=== PATIENT | female | born 1940 | race Caucasian/White ===

== ENCOUNTER 2018-04-17 13:00 | Emergency (ER) | payer OTHER ==
[2018-04-17 13:10] VITALS: TEMP 36.6
--- NOTE | 2018-04-17 14:15 | EMERGENCY ROOM VISIT NOTE ---
History First contact with patient: 13:36 (Shayne Rudolph M.D.) First contact with patient: 13:34 (Sergei Gardner M.D.) Chief Complaint: HYPERTENSION Stated Complaint: HIGH BLOOD PRESSURE History of Present Illness The patient is a 77 year old female who presents to the Emergency Room with complaints of asymptomatic HTN. She was getting Preop clearance for a procedure to fix her cervical stenosis and her BP was found to be in the 240s systolic. Apparently in the testing area they also heard a carotid bruit. Pt doesnt check her BP at home. She sometimes does check in the pharmacy and gets values in the 150s systolic. She does have a history of HTN. Pt is on Metoprolol and Losartan at home which she states she is compliant with. Her BPs in clinic have been around 150-190s systolic. Pt states she has been very stressed about her surgery, there are also some personal issues in her life including flees and family issues that she is stressed about. She states that whenever she gets nervous in the office her blood pressure tends to shoot up as well. She states she has never been on HCTZ. Denies having a sulfa allergy. SHX: She doesn't smoke, no ETHOH, no HLD. Pt drinks caffeinated tea every day. Lives in [place]. . Source of History: patient Symptom Intensity: minimal Timing: constant Modifying Factors (Worsening): other (stress) Associated Symptoms: No LOC, No fevers, No chills, No chest pain, No SOB, No nausea, No vomiting, No back pain, No diarrhea, No fatigue (Shayne Rudolph M.D.) Review of Systems See HPI for pertinent positives and negatives. A total of ten systems were reviewed and were otherwise negative. Constitutional: No fever, No chills Eyes: No worsening of vision ENT: No hearing loss, No sore throat Respiratory: No cough, No sputum Cardiovascular: No chest pain Abdomen: No pain, No nausea, No diarrhea, No constipation Genitourinary - Female: No dysuria Neurologic: No memory loss Psychiatric: No depression symptoms Endocrine: No fatigue (Shayne Rudolph M.D.) Past Medical/Surgical History History of hypertension which she is medicated for, history of cervical stenosis. (Sergei Gardner M.D.) Social History Smoking Status: Never Smoker (Shayne Rudolph M.D.) Current/Historical Medications Scheduled Aspirin (Aspirin Chewable), 81 MG PO DAILY Cholecalciferol (Vitamin D3), 1 TAB PO QPM Clobetasol Propionate (Temovate), 1 APPLN TOP BID Coenzyme Q10 (Ubidecarenone) (Co Q-10), 1 CAP PO HS Escitalopram (Lexapro), 10 MG PO DAILY Hydrocortisone (Rectal) (Proctozone-Hc), 1 APPLN EX UD Losartan Potassium (Cozaar), 50 MG PO QPM Metoprolol Succ (Toprol Xl) (Toprol-Xl), 25 MG PO QPM Omeprazole (Prilosec), 20 MG PO QPM Scheduled PRN Docusate Sodium (Docusate Sodium), 1 CAP PO BID PRN for Constipation Fluticasone Propionate (Nasal) (Flonase Allergy Relief), 1 SPRAY NA DAILY PRN for Nasal Congestion Tramadol (Ultram), 50 MG PO Q8H PRN for Pain Physical Exam Vital Signs Date Time Temp Pulse Resp B/P (MAP) Pulse Ox O2 Delivery O2 Flow Rate FiO2 04/17/18 16:11 86 16 189/65 97 Room Air 04/17/18 15:46 99 18 175/113 98 Room Air 04/17/18 14:34 66 18 236/82 98 Room Air 04/17/18 14:22 59 04/17/18 13:30 233/90 04/17/18 13:10 36.6 60 20 242/90 98 Room Air (Sergei Gardner M.D.) Physical Exam Gen: No acute distress. HEENT: Head - normocephalic and atraumatic. Pupils are equal, round, and reactive to light. Extraocular eye muscles are intact and sclera are anicteric. Ears - bilaterally patent canals with noninjected tympanic membranes and no evidence of hemotympanum. Nose - moist nasal mucosa without discharge. Mouth - moist buccal mucosa. Oropharynx is nonerythematous and there is no tonsillar exudate or edema noted. Neck: Supple; no JVD, nuchal rigidity, cervical lymphadenopathy, There is a Right sided carotid bruit. No bruit on left. Heart: Regular rate and rhythm. There is a normal S1 and S2 with no murmurs, clicks, or gallops appreciated. Lungs: Clear to auscultation bilaterally with no wheezes, rales, or rhonchi. Abdomen: Soft, completely nontender, nondistended, with good bowel sounds. There are no palpable pulsatile masses or hepatosplenomegaly. There is no guarding, rigidity, or rebound noted. Extremities: No evidence of cyanosis, clubbing, or edema. There are easily palpable peripheral pulses. SKIN: LLE has small erythematous pinpoint lesions, non raise. No signs of excoriation. Neuro:The patient is awake and alert, oriented to day, time, and place. Muscle strength is 5/5 in all 4 extremities. The patient has equal reports analysis manager strength and equal pedal push and pull. There are no cerebellar signs. CN 2-10 intact. Reflexes 2+ bilaterlaly. No nystagmus. No photosensitivity. Kernig's sign negative. (Shayne Rudolph M.D.) Medical Decision & Procedures ER Provider Diagnostic Interpretation: CAROTID DOPPLER NECK ART CLINICAL HISTORY: 77 years-old Female presenting with h/o carotid bruit, severe HTN. TECHNIQUE: Real-time grayscale and color and spectral Doppler ultrasound imaging of the bilateral carotid arteries was performed. NASCET criteria was used in evaluating this study. COMPARISON: None. FINDINGS: RIGHT: Common carotid artery (CCA): Atherosclerosis at the carotid bulb. Evaluation of the carotid bifurcation is limited due to significant calcified plaque resulting in posterior shadowing. Peak systolic velocity (PSV) 64 cm/s. Internal carotid artery (ICA): Atherosclerosis of the proximal ICA. PSV 437 cm/s. End diastolic velocity (EDV) 39 cm/s. ICA/CCA (systolic) ratio: 6.8. External carotid artery (ECA): Atherosclerosis. PSV 142 cm/s. LEFT: Common carotid artery (CCA): Atherosclerosis at the carotid bulb. PSV 68 cm/s. Internal carotid artery (ICA): Atherosclerosis of the proximal ICA. PSV 47 cm/s. EDV 9 cm/s. ICA/CCA (systolic) ratio: 0.7. External carotid artery (ECA): Patent. PSV 86 cm/s. Bilateral antegrade flow within the vertebral arteries. Blood pressure: Brachial: Right: 223/80 mmHg, Left: 212/97 mmHg. Reference ranges: Stenosis measurements are compared to reference velocity parameters by the Society of Radiologists in Ultrasound (SRU) consensus and Sonographic NASCET index (S-NASCET). SRU Primary parameters: ICA PSV <125 cm/s = normal or less than 50% stenosis; ICA PSV 125-230 cm/s = 50-69% stenosis; ICA PSV >230 cm/s = greater than or equal to 70% stenosis. SRU Additional parameters: ICA/CCA PSV ratio <2 = normal or less than 50% stenosis; ratio 2-4 = 50-69% stenosis; ratio >4 = greater than or equal to 70% stenosis. ICA EDV <40 cm/s = normal or less than 50% stenosis; ICA EDV 40-100 cm/s = 50-69% stenosis; ICA EDV >100 cm/s = greater than or equal to 70% stenosis. S-NASCET parameters: Deceleration spectral broadening + PSV <125 cm/s = less than 50% stenosis; pansystolic spectral broadening + PSV <125 cm/s = 16-49% stenosis; pansystolic spectral broadening + PSV >125 cm/s + EDV <110 cm/s or ICA/CCA PSV ratio 2-4 = 50-69% stenosis; pansystolic spectral broadening + PSV >270 cm/s OR EDV >110 cm/s OR ICA/CCA PSV ratio >4 = 70-79% stenosis; EDV >140 cm/s = 80-99% stenosis. IMPRESSION: 1. Atherosclerosis with a hemodynamically significant stenosis in the proximal right internal carotid artery (greater than or equal to 70% stenosis). Stenosis is likely less than 80%. 2. Systemic hypertension. [~ rep ct add3]] TWO VIEW CHEST CLINICAL HISTORY: Preoperative examination. FINDINGS: PA and lateral chest radiographs are obtained. No prior studies are available for comparison at the time of dictation. The heart is top normal for projection and there is atherosclerotic calcification of the thoracic ureter. Nonspecific interstitial thickening is likely chronic. No airspace consolidation or pleural effusion is identified. There is no pneumothorax. The skeletal structures are osteopenic. The bony thorax appears intact. IMPRESSION: No active disease in the chest. (Shayne Rudolph M.D.) Laboratory Results 04/17/18 14:04 04/17/18 14:04 Test 04/17/18 14:04 04/17/18 14:20 Red Blood Count 4.63 M/uL (4.2-5.4) Mean Corpuscular Volume 89.2 fL (80-100) Mean Corpuscular Hemoglobin 29.2 pg (25-34) Mean Corpuscular Hemoglobin Concent 32.7 g/dl (32-36) RDW Standard Deviation 47.7 fL (36.4-46.3) RDW Coefficient of Variation 14.8 % (11.5-14.5) Mean Platelet Volume 10.0 fL (7.4-10.4) Anion Gap 7.0 mmol/L (3-11) Estimated GFR () 70.5 Estimated GFR (Non- 60.9 BUN/Creatinine Ratio 17.6 (10-20) Calcium Level 9.2 mg/dl (8.5-10.1) Urine Color YELLOW Urine Appearance CLEAR (CLEAR) Urine pH 7.5 (4.5-7.5) Urine Specific [place] 1.006 (1.000-1.030) Urine Protein NEG (NEG) Urine Glucose (UA) NEG (NEG) Urine Ketones NEG (NEG) Urine Occult Blood NEG (NEG) Urine Nitrite NEG (NEG) Urine Bilirubin NEG (NEG) Urine Urobilinogen NEG (NEG) Urine Leukocyte Esterase TRACE (NEG) Urine WBC (Auto) 1-5 /hpf (0-5) Urine RBC (Auto) 5-10 /hpf (0-4) Urine Hyaline Casts (Auto) 0 /lpf (0-5) Urine Epithelial Cells (Auto) 0-5 /lpf (0-5) Urine Bacteria (Auto) NEG (NEG) (Sergei Gardner M.D.) Medications Administered Medications (Trade) Dose Ordered Sig/[place] Route Start Time Stop Time Status Last Admin Dose Admin Hydralazine HCl (HydrALAZINE INJ) 10 mg NOW STAT IV. 04/17/18 15:08 04/17/18 15:10 DC 04/17/18 15:46 10 MG (Sergei Gardner M.D.) ECG Per My Interpretation Indication: other (asymptomatic HTN) Rate (beats per minute): 65 Rhythm: sinus rhythm Findings: no acute ischemic change, no ectopy Change: no significant change (Shayne Rudolph M.D.) Medical Decision The patient's care and disposition was discussed with Dr. Gardner, Attending ED Physician. This is a 77F with asymptomatic HTN. Differential diagnosis include hypertensive urgency, hypertensive emergency, benign hypertension, cardiovascular pathology, pheochromocytoma, electrolyte abnormality, renal disease, endorgan damage, as well as others were entertained. Triage Nursing notes were reviewed. ED Course included an extensive history and physical exam, labs and carotid Ultrasound. 1:45PM - Pt was seen and examined at bedside. Carotid US ordered. 2:00PM - Case discussed with Dr. Gardner, Attending ER Physician. Looked up previous EKG done at preop testing. Ordered updated. 10mg IV hydralazine ordered. 3:56PM - Results reviewed. Carotid US showed between 70% and 80% stenosis in the proximal R internal carotid artery. A question will be posed to the vascular surgery team whether this should be emergency treated or treated at all. 4:00PM - Spoke with [facility] - no emergent interventions at this time. Pt is advised to follow up at [facility] with Dr. Denson, T: [phone] - to call and make an appointment. This will be added to pt's discharge instructions. 4:15PM - Spoke to patient regarding the above results - we will increase the patient's Losartan from 50mg daily to 100mg daily and ask her to follow up with PCP for BP recheck. The pt was informed about the findings as listed above. All questions were answered. Return instructions were outlined and the patient was discharged in good condition. The patient was referred to PCP for recheck of the current condition. (Shayne Rudolph M.D.) Head Trauma GCS Score: 15 (Shayne Rudolph M.D.) Impression Primary Impression: Asymptomatic hypertension Additional Impressions: Carotid artery stenosis Carotid bruit Departure Information Dispostion Home / Self-Care Condition GOOD Referrals Renee Meeks D.O. (PCP) Patient Instructions Hypertension Control, My [facility] [employer], Stress Relief Relaxation Additional Instructions Your Lab Work did not show any abnormalities. Your Carotid Ultrasound showed 70-80% stenosis in the Right Carotid Artery. After speaking with our vascular surgeon there was no indication for emergent surgical correction of this stenosis. You should however follow up with the [facility] with Dr. Denson. Dr. Denson's Physician Automobile Contract Clerk is aware of your ultrasound result. The phone number for Dr. Denson's office is [phone] - please call and make an appointment. We also encourage you to increase your dose of Losartan. At present our records indicate you take 50mg daily of Losartan, you can increase this amount of 100mg daily. Please follow up with your PCP for further blood pressure management. Return to the ER if you experience any symptoms of hypertensive urgency such as dizziness, headaches or blurred vision. We also recommend checking your blood pressure at home and in the pharmacy. Information on blood pressure control and relaxation techniques will be printed for you. Resident Involvement: Resident Care Provided Care Provided: Adult ED (Shayne Rudolph M.D.) Problem Qualifiers
[2018-04-17 14:23] LABS: HEMATOCRIT 41.3 % (37-47); HEMOGLOBIN 13.5 g/dL (12.0-16.0); MEAN CELL VOLUME 89.2 fL (80-100); MEAN CORPUSCULAR HEMOGLOBIN 29.2 pg (25-34); MEAN CORPUSCULAR HGB CONC 32.7 g/dl (32-36); PLATELET COUNT 269 K/uL (130-400); RED CELL DISTRIBUTION WIDTH CV 14.8 % (11.5-14.5); RED CELL DISTRIBUTION WIDTH SD 47.7 fL (36.4-46.3); WHITE BLOOD COUNT 6.72 K/uL (4.8-10.8)
[2018-04-17 14:43] LABS: BLOOD UREA NITROGEN 16 mg/dl (7-18); CALCIUM 9.2 mg/dl (8.5-10.1); CARBON DIOXIDE 25 mmol/L (21-32); CREATININE 0.91 mg/dl (0.60-1.20); GLUCOSE 90 mg/dl (70-99); POTASSIUM 4.1 mmol/L (3.5-5.1); SODIUM 138 mmol/L (136-145)
[2018-04-17] MEDS ORDERED: HydrALAZINE HCL 20 MG/ML VIAL IV. STA (15:08)
--- NOTE | 2018-04-17 15:32 | DIAGNOSTIC IMAGING REPORT ---
TWO VIEW CHEST CLINICAL HISTORY: Preoperative examination. FINDINGS: PA and lateral chest radiographs are obtained. No prior studies are available for comparison at the time of dictation. The heart is top normal for projection and there is atherosclerotic calcification of the thoracic ureter. Nonspecific interstitial thickening is likely chronic. No airspace consolidation or pleural effusion is identified. There is no pneumothorax. The skeletal structures are osteopenic. The bony thorax appears intact. IMPRESSION: No active disease in the chest. Electronically signed by: Sergei Omer M.D. 04/17/2018 3:31 PM Dictated Date/Time: 04/17/2018 3:31 PM
--- NOTE | 2018-04-17 15:39 | DIAGNOSTIC IMAGING REPORT ---
CAROTID DOPPLER NECK ART CLINICAL HISTORY: 77 years-old Female presenting with h/o carotid bruit, severe HTN. TECHNIQUE: Real-time grayscale and color and spectral Doppler ultrasound imaging of the bilateral carotid arteries was performed. NASCET criteria was used in evaluating this study. COMPARISON: None. FINDINGS: RIGHT: Common carotid artery (CCA): Atherosclerosis at the carotid bulb. Evaluation of the carotid bifurcation is limited due to significant calcified plaque resulting in posterior shadowing. Peak systolic velocity (PSV) 64 cm/s. Internal carotid artery (ICA): Atherosclerosis of the proximal ICA. PSV 437 cm/s. End diastolic velocity (EDV) 39 cm/s. ICA/CCA (systolic) ratio: 6.8. External carotid artery (ECA): Atherosclerosis. PSV 142 cm/s. LEFT: Common carotid artery (CCA): Atherosclerosis at the carotid bulb. PSV 68 cm/s. Internal carotid artery (ICA): Atherosclerosis of the proximal ICA. PSV 47 cm/s. EDV 9 cm/s. ICA/CCA (systolic) ratio: 0.7. External carotid artery (ECA): Patent. PSV 86 cm/s. Bilateral antegrade flow within the vertebral arteries. Blood pressure: Brachial: Right: 223/80 mmHg, Left: 212/97 mmHg. Reference ranges: Stenosis measurements are compared to reference velocity parameters by the Society of Radiologists in Ultrasound (SRU) consensus and Sonographic NASCET index (S-NASCET). SRU Primary parameters: ICA PSV <125 cm/s = normal or less than 50% stenosis; ICA PSV 125-230 cm/s = 50-69% stenosis; ICA PSV >230 cm/s = greater than or equal to 70% stenosis. SRU Additional parameters: ICA/CCA PSV ratio <2 = normal or less than 50% stenosis; ratio 2-4 = 50-69% stenosis; ratio >4 = greater than or equal to 70% stenosis. ICA EDV <40 cm/s = normal or less than 50% stenosis; ICA EDV 40-100 cm/s = 50-69% stenosis; ICA EDV >100 cm/s = greater than or equal to 70% stenosis. S-NASCET parameters: Deceleration spectral broadening + PSV <125 cm/s = less than 50% stenosis; pansystolic spectral broadening + PSV <125 cm/s = 16-49% stenosis; pansystolic spectral broadening + PSV >125 cm/s + EDV <110 cm/s or ICA/CCA PSV ratio 2-4 = 50-69% stenosis; pansystolic spectral broadening + PSV >270 cm/s OR EDV >110 cm/s OR ICA/CCA PSV ratio >4 = 70-79% stenosis; EDV >140 cm/s = 80-99% stenosis. IMPRESSION: 1. Atherosclerosis with a hemodynamically significant stenosis in the proximal right internal carotid artery (greater than or equal to 70% stenosis). Stenosis is likely less than 80%. 2. Systemic hypertension. Electronically signed by: Tahir Polanco M.D. 04/17/2018 3:38 PM Dictated Date/Time: 04/17/2018 3:33 PM
--- NOTE | 2018-04-17 16:30 | EMERGENCY ROOM VISIT NOTE ---
ED Visit Note First contact with patient: 13:34 I did see the patient with the third year resident. Please see his note. This note was reviewed by me. I did examine the patient and have been involved in the patient's care throughout the ER stay. Patient presents from preadmission testing. She was found to have a high blood pressure. She was asymptomatic. Workup here showed a right carotid bruit with a right carotid stenosis. Outpatient follow-up has been arranged. She received IV hydralazine and her blood pressure is improved. She was felt stable for discharge with outpatient follow-up. She will increase her Losartan to 100 mg daily. Patient will follow with her doctors office and returning for any complaints or concerns.
[2018-04-17 16:44] VITALS: BP 184/76; PULSE 69; O2SAT 97
== END 2018-04-17 16:46 | disposition home or self-care (01) ==
LOC: C.EDB 13:02 → C.EDA 16:46
DX: I10 Essential (primary) hypertension (principal); I77.1 Stricture of artery; R01.1 Cardiac murmur, unspecified; Z79.82 Long term (current) use of aspirin

== ENCOUNTER → 2018-04-17 | Outpatient (CLI) | payer OTHER ==
[~2018-04-17] MED LIST: ASPCH81X PO; CHOL20007 PO; CLOB-77 TOP; COEN100C3 PO; DOCU100C31 PO; ESCI10TA17 PO; FLUT0.15; HYDRCRE28 EX; LOSA50TA6 PO; METO25TA3 PO; PRLSR20 PO; TRAM-10 PO
[2018-04-17 13:24] LABS: BASO % 0.2 %; BASO ABS # 0.01 K/uL (0-0.2); EOS % 4.3 %; EOS ABS # 0.25 K/uL (0-0.5); HEMATOCRIT 39.6 % (37-47); HEMOGLOBIN 12.9 g/dL (12.0-16.0); IG# 0.02 K/uL (0.00-0.02); LYMPH % 36.3 %; LYMPH ABS # 2.11 K/uL (1.2-3.4); MEAN CELL VOLUME 88.8 fL (80-100); MEAN CORPUSCULAR HEMOGLOBIN 28.9 pg (25-34); MEAN CORPUSCULAR HGB CONC 32.6 g/dl (32-36); MONO % 8.1 %; MONO ABS # 0.47 K/uL (0.11-0.59); NEUT % 50.8 %; NEUT ABS # 2.96 K/uL (1.4-6.5); PLATELET COUNT 255 K/uL (130-400); RED CELL DISTRIBUTION WIDTH CV 14.7 % (11.5-14.5); RED CELL DISTRIBUTION WIDTH SD 47.5 fL (36.4-46.3); WHITE BLOOD COUNT 5.82 K/uL (4.8-10.8)
[2018-04-17 13:44] LABS: PTT PATIENT 27.8 SECONDS (21.0-31.0)
[2018-04-17 14:00] LABS: BLOOD UREA NITROGEN 16 mg/dl (7-18); CREATININE 0.89 mg/dl (0.60-1.20); GLUCOSE 99 mg/dl (70-99)
[2018-04-17 14:01] LABS: CALCIUM 9.1 mg/dl (8.5-10.1); CARBON DIOXIDE 26 mmol/L (21-32); POTASSIUM 4.2 mmol/L (3.5-5.1); SODIUM 138 mmol/L (136-145)
== END | disposition home or self-care (01) ==
LOC: C.CPL 11:39
PROVIDERS: ATTEND Orthopaedic Surgery Orthopaedic Surgery of the Spine
DX: Z01.812 Encounter for preprocedural laboratory examination (principal); Z01.811 Encounter for preprocedural respiratory examination; Z01.810 Encounter for preprocedural cardiovascular examination

== ENCOUNTER 2024-08-05 15:00 | Inpatient (IN) ==
--- NOTE | 2024-08-05 16:06 | Emergency Department Note ---
Impression & Plan Fatigue, HOFFMAN (dyspnea on exertion), Anemia ED Provider Note ED Provider Note NAME: ZOFIA GONZALEZ AGE:83 SEX: Female : 1940 ARRIVES VIA: private vehicle INFORMANT: Patient ED PROVIDER(s): Cristin Almanza DO CHIEF COMPLAINT: referred by PCP, abn outpatient labs, fatigue, HOFFMAN HPI: This is an 83-year-old female who presents emergency department after being directed here by her PCP after abnormal outpatient labs revealed significant anemia and low iron. Patient states over the last several weeks she has noticed increased fatigue particular with any exertion. She states she also has felt more short of breath with any exertion. She denies any black or bloody stools, noting that she does struggle with constipation and does occasionally have a small amount of bleeding on toilet tissue from hemorrhoids. She denies any vomiting, hematemesis, frequent nosebleeds, hemoptysis, abdominal pain, fevers or chills. She denies any prior history of anemia although states many years ago she did use to take iron supplements for low iron but has not in several years. No other recent change in diet or medications. She denies any use of antiplatelet or anticoagulation medications. She has had a prior screening colonoscopy which she reports was "good". Uncertain if she ever had an EGD. PAST MEDICAL HISTORY:See Below PAST SURGICAL HISTORY:See Below FAMILY HISTORY:See Below SOCIAL HISTORY:See Below HOME MEDICATIONS:See Below ALLERGIES:See Below VITALS:See Below PHYSICAL EXAMINATION: GENERAL: alert, well appearing, well nourished, no distress, non-toxic EYE EXAM: normal conjunctiva, PERRL and EOM's grossly intact OROPHARYNX: no exudate, no erythema, lips, buccal mucosa, and tongue normal and mucous membranes are moist NECK: supple, no nuchal rigidity, no adenopathy, non-tender LUNGS: Clear to auscultation. Normal chest wall mechanics, no w/r/r HEART: no murmurs, S1 normal and S2 normal ABDOMEN: abdomen soft, non-tender, normo-active bowel sounds, no masses, no rebound or guarding. BACK: Back is symmetrical on inspection and there is no deformity, no midline tenderness, no CVA tenderness. SKIN: no rashes, petechiae, orbruising UPPER EXTREMITIES: upper extremities are grossly normal. FROM, nml pulses b/l. LOWER EXTREMITIES: No pitting edema. FROM, nml pulses b/l. NEURO EXAM: Normal sensorium, cranial nerves II-XII grossly intact, normal speech, no facial droop,nogross weakness of arms, no gross weakness of legs. Gross sensation intact. No ataxia. Vital Signs: reviewed and remarkable Differential Diagnosis: anemia, GI bleed, AMANDA, ACS, colitis, CKD, medication adr, PUD, as well as others were considered MEDICAL DECISION MAKING: THis is an 83 yo female who presents to the ER with concern for abnormal outpatient labs and was referred by her PCP to the ER. She c/o a month of worsening fatigue and dyspnea with exertion. Labs drawn and sent, IV established, EKG and CXR performed and interpreted at bedside, and patient placed on telemetry. Prior labs from last year show a normal H/H at that time. She denies blood loss from any source including any GI bleed. She was noted have marked anemia. CXR reassuring, no acute EKG changes. She was sent for CT a/p additionally. No definite abnormality noted. We discussed further inpatient evaluation and likely need for blood transfusion given worsening symptoms and likely ongoing loss. Case discussed with the hospitalist team for additional evaluation. Blood consent signed at bedside and transfusion started while still in the ER. I suspect more likely occult GI bleed given patient described "dark brown" stools but not truly melanotic. Given last labs from >1 year ago, and patient relatively asymptomatic until the last month it is unclear when this may have started. VS stable while in the ER. Consultation(s): 1904: Discussed with Isabella Arboleda hospitalist team, for additional evaluation and management. Agrees with transfusion of 1 unit of packed RBCs due to symptomatic anemia. 1922: Blood consent form signed at bedside. ER Treatment Provided: See below Diagnostics Interpreted By Me: -ECG: nsr at 71, nml axis, nml intervals, no acute ST/T wave changes -Cardiac Monitoring: An order was placed for continuous cardiac monitoring. The monitor shows a rate of 70 with normal sinus rhythm. -Laboratory studies: As stated above and show below. -Imaging studies: X-ray Chest: A single view study of the chest was reviewed and was negative for cardiomegaly, focal infiltrate, effusion, pulmonary edema, or wide mediastinum. Triage Nursing Note Reviewed Prior/Outside Records Reviewed Critical Care: Critical care of 36 min performed to assess and manage high likelihood of life-threatening symptomatic anemia, involving labs and imaging performed with assessment to evaluate anemia diagnosis with frequent reassessment. This time includes bedside time, treatment discussions with patient/family/consultants, documentation time and excludes procedure time. Past Med/Surg History Problem List (Updated 08/06/24 @ 13:21 by LAINEY Suarez) CAD (coronary artery disease) CKD (chronic kidney disease) stage 4, GFR 15-29 ml/min Hypothyroidism CKD (chronic kidney disease), stage III Dark stools Symptomatic anemia Anemia (Acute) HOFFMAN (dyspnea on exertion) (Acute) Fatigue (Acute) Cervical stenosis of spinal canal Encounter for pre-operative examination Osteoarthritis GERD (gastroesophageal reflux disease) Depression Hypertension (Acute) Irregular heart rate UNKNOWN TYPE PER PT, FREQUENT PVCS NOTED ON 2015 ECHO Medical History Anxiety Cervical radiculopathy SOB (shortness of breath) on exertion Surgical History History of tonsillectomy H/O hemicolectomy 2/2 bowel obstruction H/O hysterectomy with oophorectomy one ovary remains H/O tubal ligation H/O colonoscopy History of carpal tunnel release duplicate Social History Smoking Status: Never smoker Second Hand Exposure: No; Do You Dip or Chew Tobacco: No; Hx Alcohol Use: Yes Alcohol type: hard liquor Hx Substance Use: No Preferred Language: Taiwanese Communication Ability: Effective Spine Supervisor Required: No Beliefs That Will Affect Care: None Current Living Situation: Spouse Other Information That Helps Us Care for You: No Feels Safe at Home: Yes Safety Concerns: Feels Safe At This Time Assistive Devices: Glasses Allergies Allergies Allergy/AdvReac Type Severity Reaction Status Date / Time No Known Allergies Allergy Verified 08/01/18 06:35 Home Meds Home Medications Medication Instructions Recorded Confirmed cholecalciferol (vitamin D3) 50 2,000 unit PO QPM 04/16/18 08/05/24 mcg (2,000 unit) capsule (Vitamin D3) docusate sodium 100 mg tablet 100 mg PO BID Constipation 04/16/18 08/05/24 escitalopram oxalate 10 mg tablet 10 mg PO QAM 04/16/18 08/05/24 fluticasone propionate 50 1 spray intranasal DAILY PRN 04/16/18 08/05/24 mcg/actuation nasal Congestion spray,suspension (Flonase Allergy Relief) losartan 100 mg tablet 100 mg PO DAILY 07/23/18 08/05/24 vitamin E 670 mg (1,000 unit) 1,000 unit PO DAILY 07/23/18 08/05/24 capsule amlodipine 2.5 mg tablet 2.5 mg PO DAILY 08/05/24 08/05/24 aspirin 81 mg tablet,delayed 81 mg PO DAILY 08/05/24 08/05/24 release atorvastatin 40 mg tablet 40 mg PO QPM 08/05/24 08/05/24 coenzyme Q10 100 mg capsule (Co 100 mg PO QAM 08/05/24 08/05/24 Q-10) furosemide 20 mg tablet 20 mg PO DAILY 08/05/24 08/05/24 hydralazine 25 mg tablet 25 mg PO TID 08/05/24 08/05/24 levothyroxine 25 mcg tablet 25 mcg PO DAILYBB 08/05/24 08/05/24 metoprolol succinate 25 mg 25 mg PO DAILY 08/05/24 08/05/24 tablet,extended release 24 hr omeprazole 20 mg capsule,delayed 20 mg PO AMPM 08/05/24 08/05/24 release Results & Data (ED) Vital Signs Vital Signs - 24 hr 08/05/24 15:06 08/05/24 16:04 08/05/24 16:04 Temperature 36.7 C Temperature Source Temporal Artery Scan Pulse Rate 75 70 Pulse Rate [Apical] Respiratory Rate 17 Blood Pressure 189/70 H 173/71 H Blood Pressure [Left Arm] Blood Pressure Mean 109 126 Blood Pressure Mean [Left Arm] Blood Pressure Position [Left Arm] Pulse Oximetry 98 Oxygen Delivery Method Room Air Sepsis Recent Fever Within 48 Hours No Sepsis New/Unexplained Change in Mental Status N/A Sepsis Action Taken by Nursing No Action Required 08/05/24 16:05 08/05/24 16:20 08/05/24 16:30 Temperature Temperature Source Pulse Rate 73 74 Pulse Rate [Apical] Respiratory Rate 16 15 Blood Pressure 195/64 H Blood Pressure [Left Arm] Blood Pressure Mean 83 Blood Pressure Mean [Left Arm] Blood Pressure Position [Left Arm] Pulse Oximetry Oxygen Delivery Method Sepsis Recent Fever Within 48 Hours Sepsis New/Unexplained Change in Mental Status Sepsis Action Taken by Nursing 08/05/24 16:41 08/05/24 16:44 08/05/24 17:00 Temperature Temperature Source Pulse Rate 71 72 Pulse Rate [Apical] Respiratory Rate 20 19 Blood Pressure 160/71 H Blood Pressure [Left Arm] Blood Pressure Mean 108 Blood Pressure Mean [Left Arm] Blood Pressure Position [Left Arm] Pulse Oximetry Oxygen Delivery Method Sepsis Recent Fever Within 48 Hours Sepsis New/Unexplained Change in Mental Status Sepsis Action Taken by Nursing 08/05/24 17:59 08/05/24 18:05 08/05/24 19:00 Temperature Temperature Source Pulse Rate 73 73 Pulse Rate [Apical] 73 Respiratory Rate 14 16 19 Blood Pressure Blood Pressure [Left Arm] 198/107 H Blood Pressure Mean Blood Pressure Mean [Left Arm] 137 Blood Pressure Position [Left Arm] Semi-fowlers Pulse Oximetry 98 Oxygen Delivery Method Room Air Sepsis Recent Fever Within 48 Hours Sepsis New/Unexplained Change in Mental Status Sepsis Action Taken by Nursing Laboratory Data 08/06/24 08:27 08/06/24 08:27 Lab Results 08/05/24 Range/Units 15:54 WBC 6.22 (4.8-10.8) K/ul RBC 3.41 L (4.20-5.40) M/uL Hgb 7.1 L (12.0-16.0) g/dl Hct 23.4 L (37.0-47.0) % MCV 68.6 L (80.0-100.0) fL MCH 20.8 L (25.0-34.0) pg MCHC 30.3 L (32.0-36.0) g/dL RDW Std Deviation 41.1 (36.4-46.3) fL RDW Coeff of Orlin 16.7 H (11.5-14.5) % Plt Count 478 H (130-400) K/uL MPV 8.9 L (9.4-12.4) fL Immature Gran % (Auto) 0.8 % Neut % (Auto) 56.6 % Lymph % (Auto) 24.4 % [place] % (Auto) 14.1 % Eos % (Auto) 3.5 % Baso % (Auto) 0.6 % Neut # (Auto) 3.51 (1.40-6.50) K/uL Lymph # (Auto) 1.52 (1.20-3.40) K/uL [place] # (Auto) 0.88 H (0.11-0.59) K/uL Eos # (Auto) 0.22 (0.00-0.50) K/uL Baso # (Auto) 0.04 (0.00-0.20) K/uL Immature Gran # (Auto) 0.05 (0.01-0.20) K/uL Polychromasia 1+ Poikilocytosis Present Microcytosis Present PT 10.7 (9.0-12.0) Seconds INR 1.0 (0.9-1.1) Sodium 134 L (136-145) mmol/L Potassium 3.9 (3.5-5.1) mmol/L Chloride 101 (98-107) mmol/L Carbon Dioxide 25 (21-32) mmol/L Anion Gap 8 (3-11) BUN 33 H (6-23) mg/dl Creatinine 1.67 H (0.6-1.2) mg/dl Est Cr Clr Drug Dosing 18.8 ml/min eGFR 30.21 BUN/Creatinine Ratio 19.8 (10-20) Glucose 91 (70-99(Fasting)) mg/dl Calcium 9.3 (8.6-10.3) mg/dl Magnesium 2.0 (1.7-2.4) mg/dl Total Bilirubin 0.4 (0.2-1.0) mg/dl AST 15 (13-39) U/L ALT 12 (7-52) U/L Alkaline Phosphatase 58 (34-104) U/L Troponin I High Sens 8.0 (0-14) pg/ml B-Natriuretic Peptide 222 H (0-100) pg/ml Total Protein 6.4 (6.0-8.3) gm/dl Albumin 3.9 (3.4-5.0) gm/dl Globulin 2.5 (2.5-4.0) gm/dl Albumin/Globulin Ratio 1.6 (0.9-2) Lipase 39 (11-82) U/L TSH 1.670 (0.300-4.500) uIu/ml Blood Type O Positive Antibody Screen NEGATIVE Crossmatch See Detail Administered Medications Amlodipine Besylate (Amlodipine Besylate 5 Mg Tab) 2.5 mg PO DAILY NARCISA Stop: 09/05/24 08:59 Last Admin: 08/06/24 08:17 Dose: 2.5 mg Documented By: DENNIS Atorvastatin Calcium (Atorvastatin 40 Mg Tab) 40 mg PO QPM NARCISA Stop: 09/04/24 21:09 Last Admin: 08/05/24 21:59 Dose: Not Given Documented By: YUNG Carvedilol (Carvedilol 3.125 Mg Tab) 3.125 mg PO BIDM NARCISA Stop: 09/05/24 05:04 Last Admin: 08/06/24 05:46 Dose: 3.125 mg Documented By: YUNG Escitalopram Oxalate (Escitalopram Oxalate 10 Mg Tab) 10 mg PO QAM NARCISA Stop: 09/05/24 08:59 Last Admin: 08/06/24 08:17 Dose: 10 mg Documented By: DENNIS Furosemide (Furosemide 20 Mg Tab) 20 mg PO DAILY NARCISA Stop: 09/05/24 08:59 Last Admin: 08/06/24 08:17 Dose: 20 mg Documented By: DENNIS Hydralazine HCl (Hydralazine Hcl 25 Mg Tab) 25 mg PO TID NARCISA Stop: 09/04/24 22:24 Last Admin: 08/06/24 13:25 Dose: 25 mg Documented By: Admin: 08/06/24 08:17 Dose: 25 mg Documented By: Admin: 08/05/24 23:13 Dose: 25 mg Documented By: YUNG Pantoprazole Sodium 40 mg/ (Dextrose) 100 mls @ 20 mls/hr IV Q5H NARCISA Stop: 09/04/24 22:29 Last Admin: 08/06/24 12:27 Dose: 8 mg/hr, 20 mls/hr Documented By: Infusion: 08/06/24 12:27 Dose: Infused Documented By: Admin: 08/06/24 07:46 Dose: 8 mg/hr, 20 mls/hr Documented By: Infusion: 08/06/24 07:46 Dose: Infused Documented By: Admin: 08/06/24 03:05 Dose: 8 mg/hr, 20 mls/hr Documented By: Infusion: 08/06/24 03:04 Dose: Infused Documented By: Admin: 08/05/24 22:13 Dose: 8 mg/hr, 20 mls/hr Documented By: YUNG Levothyroxine Sodium (Levothyroxine Sodium 25 Mcg Tablet) 25 mcg PO DAILYBB NARCISA Stop: 09/05/24 06:29 Last Admin: 08/06/24 05:46 Dose: 25 mcg Documented By: YUNG Losartan Potassium (Losartan Potassium 50 Mg Tab) 100 mg PO PM NARCISA Stop: 09/04/24 22:29 Last Admin: 08/05/24 23:14 Dose: 100 mg Documented By: YUNG Discontinued Medications Hydralazine HCl (Hydralazine Hcl 25 Mg Tab) 25 mg PO NOW STA Stop: 08/05/24 19:54 Last Admin: 08/05/24 20:07 Dose: 25 mg Documented By: ANGELY Pantoprazole Sodium (Protonix) 40 mg in 10 mls @ 5 mls/min IV NOW ONE Stop: 08/05/24 18:45 Last Admin: 08/05/24 19:18 Dose: 5 mls/min Documented By: CONCHA Pantoprazole Sodium 80 mg/ (Dextrose) 120 mls @ 480 mls/hr IV NOW STA Stop: 08/05/24 21:28 Last Infusion: 08/05/24 22:13 Dose: Infused Documented By: Admin: 08/05/24 21:58 Dose: 480 mls/hr Documented By: YUNG Iron Sucrose 300 mg/ Sodium (Chloride) 265 mls @ 176.667 mls/hr IV ONE ONE Stop: 08/05/24 23:59 Last Infusion: 08/05/24 23:28 Dose: Infused Documented By: Admin: 08/05/24 21:58 Dose: 176.7 mls/hr Documented By: YUNG Ioversol (Optiray 320 100ml) 94 ml IV ONCE ONE Stop: 08/05/24 17:44 Last Admin: 08/05/24 17:44 Dose: 94 ml Documented By: MARIO Imaging Data Radiologist's Impression: Chest X-Ray 08/05/24 15:49 EXAM: Radiograph of the Chest 1 View INDICATION: Shortness of breath. TECHNIQUE: Frontal view of the chest. COMPARISON: 05/12/2023 FINDINGS: Lungs and pleural spaces: Stable mild chronic interstitial markings without consolidation or pulmonary edema. No pleural effusion or pneumothorax. Heart: Shape and configuration within normal limits allowing for technique. Mediastinum: Normal contour. Bones/joints: No fracture, erosion or dislocation. Soft tissues: No abnormality noted. No radiopaque foreign body noted. Upper abdomen: No abnormality noted. IMPRESSION: No acute cardiopulmonary disease. ACT 112: Negative or not required by law. Electronically signed by Gwen Kam 08-05-2024 4:18 PM Abdomen/Pelvis CT 08/05/24 15:56 EXAM: CT Abdomen and Pelvis With Intravenous Contrast INDICATION: Shortness of breath and leg cramps. Anemia. TECHNIQUE: Axial computed tomography images of the abdomen and pelvis with intravenous contrast. Sagittal and coronal reformatted images were created and reviewed. This CT exam was performed using one or more of the following dose reduction techniques: automated exposure control, adjustment of the mA and/or kV according to patient size, and/or use of iterative reconstruction technique. CONTRAST: 94ml of Optiray 320 was administered intravenously. COMPARISON: No relevant prior studies available. FINDINGS: Limitations: None. Lung bases: No abnormality noted. Pleural space: No visualized pleural effusion or pneumothorax. Heart: Cardiomegaly. No basilar pericardial effusion. Mediastinum: No abnormality noted. ABDOMEN: Liver: No abnormality noted. Gallbladder and bile ducts: No calcified stones or surrounding fluid. Pancreas: Homogeneous enhancement. No mass, inflammation or ductal dilation. Spleen: No significant abnormality noted. Adrenals: No significant abnormality noted. Kidneys and ureters: The right kidney is small and the nephrogram delayed relative to the left. No hydronephrosis. No stones identified. No perinephric fluid or inflammation. No urinary gas. Stomach and bowel: Suboptimally assessed collapsed stomach. Mild pyloric thickening difficult to exclude. No inflammatory process. Colonic diverticulosis without diverticulitis. No obstruction. PELVIS: Appendix: No findings to suggest acute appendicitis. Bladder: Incompletely distended urinary bladder. No gas or stone. Reproductive: Hysterectomy. ABDOMEN and PELVIS: Intraperitoneal space: No free air. No significant fluid collection. Bones/joints: Lumbosacral degenerative disc disease. No acute osseous abnormality. Soft tissues: No significant abnormality noted. Vasculature: Atherosclerotic calcification of the aorta and branches. No aneurysm. Atherosclerotic calcification of the aorta. 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 No hemorrhage. There is moderate calcific plaque causing some level of stenosis at the origin of the right renal artery, celiac trunk and SMA. Incidental retroaortic left renal vein. Lymph nodes: No pathologically enlarged lymph nodes. IMPRESSION: 1. There may be pyloric thickening. This is suboptimally assessed due to collapse of the stomach. No focal inflammatory process, visible ulceration or perforation. 2. Atrophic right kidney which does enhance but less than the left kidney. Consider renal artery stenosis. ACT 112: Negative or not required by law. Electronically signed by Gwen Kam 08-05-2024 6:34 PM Discharge Plan Visit Data Chief Complaint: Abnormal Labs/Diagnostic Testing Stated Complaint: ABN TEST, IRON WAY DOWN ED Provider: Cristin Almanza Discharge Problem: Fatigue, HOFFMAN (dyspnea on exertion), Anemia Patient Disposition: Admitted As Inpatient Discharge Instructions Interventions: ED Discharge Assessment Last Done: 08/05/24 20:29
[2024-08-05 16:13] LABS: Basophils # (auto) 0.04 K/uL (0.00-0.20); Basophils % (auto) 0.6 %; Eosinophils # (auto) 0.22 K/uL (0.00-0.50); Eosinophils % (auto) 3.5 %; Hematocrit (blood only) 23.4 % (37.0-47.0); Hemoglobin 7.1 g/dl (12.0-16.0); Immature Granulocytes # (auto) 0.05 K/uL (0.01-0.20); Immature Granulocytes % (auto) 0.8 %; Lymphocytes # (auto) 1.52 K/uL (1.20-3.40); Lymphocytes % (auto) 24.4 %; Mean Corpuscular Hemoglobin 20.8 pg (25.0-34.0); Mean Corpuscular Hgb Conc 30.3 g/dL (32.0-36.0); Mean Corpuscular Volume 68.6 fL (80.0-100.0); Monocytes # (auto) 0.88 K/uL (0.11-0.59); Monocytes % (auto) 14.1 %; Neutrophils # (auto) 3.51 K/uL (1.40-6.50); Neutrophils % (auto) 56.6 %; RDW Coefficient of Variation 16.7 % (11.5-14.5); RDW Standard Deviation 41.1 fL (36.4-46.3); Red Blood Count 3.41 M/uL (4.20-5.40); White Blood Count 6.22 K/ul (4.8-10.8)
--- NOTE | 2024-08-05 16:19 | XRay Report ---
EXAM: Radiograph of the Chest 1 View INDICATION: Shortness of breath. TECHNIQUE: Frontal view of the chest. COMPARISON: 05/12/2023 FINDINGS: Lungs and pleural spaces: Stable mild chronic interstitial markings without consolidation or pulmonary edema. No pleural effusion or pneumothorax. Heart: Shape and configuration within normal limits allowing for technique. Mediastinum: Normal contour. Bones/joints: No fracture, erosion or dislocation. Soft tissues: No abnormality noted. No radiopaque foreign body noted. Upper abdomen: No abnormality noted. IMPRESSION: No acute cardiopulmonary disease. ACT 112: Negative or not required by law. Electronically signed by Gwen Kam 08-05-2024 4:18 PM
[2024-08-05 16:35] LABS: Albumin Globulin Ratio 1.6 (0.9-2); Albumin Level 3.9 gm/dl (3.4-5.0); BUN Creatinine Ratio 19.8 (10-20); Bilirubin,Total 0.4 mg/dl (0.2-1.0); Calcium 9.3 mg/dl (8.6-10.3); Creatinine Clr Calc Pharmacy 18.8 ml/min; Globulin 2.5 gm/dl (2.5-4.0); Potassium 3.9 mmol/L (3.5-5.1); Total Protein 6.4 gm/dl (6.0-8.3)
[2024-08-05 16:36] LABS: Mean Platelet Volume 8.9 fL (9.4-12.4); Microcytosis Present; Platelet Count 478 K/uL (130-400); Poikilocytosis Present; Polychromasia 1+
[2024-08-05 16:37] LABS: Prothrombin Time 10.7 Seconds (9.0-12.0)
[2024-08-05 16:50] LABS: Thyroid Stimulating Hormone 1.67 uIu/ml (0.300-4.500)
[2024-08-05] MEDS: OPTIRAY 320 100ml IV ONE (17:44)
--- NOTE | 2024-08-05 18:39 | CT Scan Report ---
EXAM: CT Abdomen and Pelvis With Intravenous Contrast INDICATION: Shortness of breath and leg cramps. Anemia. TECHNIQUE: Axial computed tomography images of the abdomen and pelvis with intravenous contrast. Sagittal and coronal reformatted images were created and reviewed. This CT exam was performed using one or more of the following dose reduction techniques: automated exposure control, adjustment of the mA and/or kV according to patient size, and/or use of iterative reconstruction technique. CONTRAST: 94ml of Optiray 320 was administered intravenously. COMPARISON: No relevant prior studies available. FINDINGS: Limitations: None. Lung bases: No abnormality noted. Pleural space: No visualized pleural effusion or pneumothorax. Heart: Cardiomegaly. No basilar pericardial effusion. Mediastinum: No abnormality noted. ABDOMEN: Liver: No abnormality noted. Gallbladder and bile ducts: No calcified stones or surrounding fluid. Pancreas: Homogeneous enhancement. No mass, inflammation or ductal dilation. Spleen: No significant abnormality noted. Adrenals: No significant abnormality noted. Kidneys and ureters: The right kidney is small and the nephrogram delayed relative to the left. No hydronephrosis. No stones identified. No perinephric fluid or inflammation. No urinary gas. Stomach and bowel: Suboptimally assessed collapsed stomach. Mild pyloric thickening difficult to exclude. No inflammatory process. Colonic diverticulosis without diverticulitis. No obstruction. PELVIS: Appendix: No findings to suggest acute appendicitis. Bladder: Incompletely distended urinary bladder. No gas or stone. Reproductive: Hysterectomy. ABDOMEN and PELVIS: Intraperitoneal space: No free air. No significant fluid collection. Bones/joints: Lumbosacral degenerative disc disease. No acute osseous abnormality. Soft tissues: No significant abnormality noted. Vasculature: Atherosclerotic calcification of the aorta and branches. No aneurysm. Atherosclerotic calcification of the aorta. 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 No hemorrhage. There is moderate calcific plaque causing some level of stenosis at the origin of the right renal artery, celiac trunk and SMA. Incidental retroaortic left renal vein. Lymph nodes: No pathologically enlarged lymph nodes. IMPRESSION: 1. There may be pyloric thickening. This is suboptimally assessed due to collapse of the stomach. No focal inflammatory process, visible ulceration or perforation. 2. Atrophic right kidney which does enhance but less than the left kidney. Consider renal artery stenosis. ACT 112: Negative or not required by law. Electronically signed by Gwen Kam 08-05-2024 6:34 PM
[2024-08-05] MEDS ORDERED: SODIUM CHLORIDE 0.9% 100 ML IV PRN (19:03)
[2024-08-05] MEDS ORDERED: SODIUM CHLORIDE 0.9% 50 ML IV PRN (19:03)
--- NOTE | 2024-08-05 19:08 | History & Physical Report ---
Date of Service August 05, 2024 Assessment & Plan (1) Symptomatic anemia: (2) Dark stools: Plan: Patient is 83-year-old female with PMH HTN, dyslipidemia, CKD III, CAD, carotid stenosis, depression, hypothyroidism presented to ER for progressive fatigue, SOB and newly found anemia on outpatient labs. 08/04/24 Outpatient labs: Hgb: 7.2 (Prior baseline in 13's in 2022). Iron: 20, TIBC: 747, transferrin: 4, ferritin: 21 Today in ER hypertensive, otherwise vitals stable H/H: 7.09/17 In ER given Protonix 40mg IV Will continue IV Protonix In ER Type and Cross and 1 unit PRBC transfusion ordered. Repeat H&H after transfusion FOBT pending B12, Folate labs pending IV iron infusion Hold home aspirin NPO midnight GI consult CBC, BMP in am (3) Hypertension: Plan: Hypertensive in ER. Reports missed afternoon dose of hydralazine Dose hydralazine now Continue home hydralazine, losartan, metoprolol succinate, furosemide Continue amlodipine for now but may need to consider discontinuing secondary to BLE edema (4) CKD (chronic kidney disease), stage III: Plan: Today Cr: 1.67. Is at new baseline. Cr: 1.9 on 06/01/24, 1.4 on 09/06/23. History renal ultrasound on 12/19/2023: Atrophic right kidney without mention of hydronephrosis or mass Last seen by nephrology on 05/15/2024 secondary to gradual worsening renal functions. 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 At that time her hydralazine was increased to 25 mg 3 times daily Monitor renal functions (5) GERD (gastroesophageal reflux disease): Plan: Hold home oral PPI and switched to IV PPI (6) Hypothyroidism: Plan: Continue home levothyroxine DVT Prophylaxis SCDs Admit telemetry Full code as per discussion with pt Follows with Dr Renee Meeks for routine care Pt was seen and care coordinated with Dr Fuentes. See addendum I spent a total of 65 minutes reviewing notes, outpatient records, labs, medication, coordinating, documenting and providing care for this patient excluding time spent in the performance of separately billed services. History of Present Illness Chief Complaint: Abnormal labs - anemia Primary Care Provider: Renee Meeks, Patient is 83-year-old female with PMH HTN, dyslipidemia, CKD III, CAD, carotid stenosis, depression, hypothyroidism presented to ER for progressive fatigue and newly found anemia on outpatient labs. Progressive generalized weakness and fatigue over past couple of months. Has had urge to eat ice for past 2 weeks. Feeling SOB with exertion for past month. Having cramps to legs and hands. States decreased taste to food and decreased appetite. Reports chronic heartburn. Having some constipation and used laxative at home with relief. Stools described as very dark. Denies any bright red blood from rectum. Reports history hemorrhoids and will have bulging but denies any recent bleeding hemorrhoids or hemorrhoidal pain. Takes aspirin 81mg daily. Reports had colonoscopy >10 years ago. Reports history partial bowel resection in but unaware of details. Has urinary frequency. Denies dysuria or hematuria. Reports bilateral leg swelling that is chronic and feels from her amlodipine. Denies fever/chills, diaphoresis, N/V, COURTNEY, syncope, vision changes, neck pain, CP, orthopnea, palpitations, cough, sore throat, rhinorrhea, abdominal pain, paresthesias, extremity edema, rashes. Allergies Allergy/AdvReac Type Severity Reaction Status Date / Time No Known Allergies Allergy Verified 08/01/18 06:35 Home Medications Medication Instructions Recorded Confirmed Type cholecalciferol (vitamin D3) 50 2,000 unit PO QPM 04/16/18 08/05/24 History mcg (2,000 unit) capsule (Vitamin D3) docusate sodium 100 mg tablet 100 mg PO BID Constipation 04/16/18 08/05/24 History escitalopram oxalate 10 mg tablet 10 mg PO QAM 04/16/18 08/05/24 History fluticasone propionate 50 1 spray intranasal DAILY PRN 04/16/18 08/05/24 History mcg/actuation nasal Congestion spray,suspension (Flonase Allergy Relief) losartan 100 mg tablet 100 mg PO DAILY 07/23/18 08/05/24 History vitamin E 670 mg (1,000 unit) 1,000 unit PO DAILY 07/23/18 08/05/24 History capsule amlodipine 2.5 mg tablet 2.5 mg PO DAILY 08/05/24 08/05/24 History aspirin 81 mg tablet,delayed 81 mg PO DAILY 08/05/24 08/05/24 History release atorvastatin 40 mg tablet 40 mg PO QPM 08/05/24 08/05/24 History coenzyme Q10 100 mg capsule (Co 100 mg PO QAM 08/05/24 08/05/24 History Q-10) furosemide 20 mg tablet 20 mg PO DAILY 08/05/24 08/05/24 History hydralazine 25 mg tablet 25 mg PO TID 08/05/24 08/05/24 History levothyroxine 25 mcg tablet 25 mcg PO DAILYBB 08/05/24 08/05/24 History metoprolol succinate 25 mg 25 mg PO DAILY 08/05/24 08/05/24 History tablet,extended release 24 hr omeprazole 20 mg capsule,delayed 20 mg PO AMPM 08/05/24 08/05/24 History release Past Med/Surg History Problem List (Updated 08/06/24 @ 11:30 by Tyree Coughlin MD) CKD (chronic kidney disease) stage 4, GFR 15-29 ml/min Hypothyroidism CKD (chronic kidney disease), stage III Dark stools Symptomatic anemia Anemia (Acute) HOFFMAN (dyspnea on exertion) (Acute) Fatigue (Acute) Cervical stenosis of spinal canal Encounter for pre-operative examination Osteoarthritis GERD (gastroesophageal reflux disease) Depression Hypertension (Acute) Irregular heart rate UNKNOWN TYPE PER PT, FREQUENT PVCS NOTED ON 2015 ECHO Medical History Anxiety Cervical radiculopathy SOB (shortness of breath) on exertion Surgical History History of tonsillectomy H/O hemicolectomy 2/2 bowel obstruction H/O hysterectomy with oophorectomy one ovary remains H/O tubal ligation H/O colonoscopy History of carpal tunnel release duplicate Social History Smoking Status: Never smoker Second Hand Exposure: No; Do You Dip or Chew Tobacco: No; Hx Alcohol Use: Yes Alcohol type: hard liquor Hx Substance Use: No Preferred Language: Belarusian Communication Ability: Effective Sled Maker Required: No Beliefs That Will Affect Care: None Current Living Situation: Spouse Other Information That Helps Us Care for You: No Feels Safe at Home: Yes Safety Concerns: Feels Safe At This Time Assistive Devices: Glasses Review of Systems Review of Systems: All systems reviewed & are unremarkable except as noted in HPI & below Physical Exam Physical Exam: PE per Dr Fuentes Results & Data Results & Data Vital Signs (Past 12 Hours) Vital Signs Temp Pulse Resp BP Pulse Ox O2 Del Method 08/05/24 18:05 73 16 08/05/24 17:59 73 14 08/05/24 17:00 160/71 H 08/05/24 16:44 72 19 08/05/24 16:41 71 20 08/05/24 16:30 195/64 H 08/05/24 16:20 74 15 08/05/24 16:05 73 16 08/05/24 16:04 173/71 H 08/05/24 16:04 70 08/05/24 15:06 36.7 C 75 17 189/70 H 98 Room Air Laboratory Results Short CBC 08/05/24 Range/Units 15:54 WBC 6.22 (4.8-10.8) K/ul Hgb 7.1 L (12.0-16.0) g/dl Hct 23.4 L (37.0-47.0) % Plt Count 478 H (130-400) K/uL BMP 08/05/24 15:54 Sodium 134 L Potassium 3.9 Chloride 101 Carbon Dioxide 25 BUN 33 H Creatinine 1.67 H Glucose 91 Calcium 9.3 Liver Function 08/05/24 Range/Units 15:54 Total Bilirubin 0.4 (0.2-1.0) mg/dl AST 15 (13-39) U/L ALT 12 (7-52) U/L Alkaline Phosphatase 58 (34-104) U/L Albumin 3.9 (3.4-5.0) gm/dl Diagnostic Findings Chest X-Ray 08/05/24 15:49 EXAM: Radiograph of the Chest 1 View INDICATION: Shortness of breath. TECHNIQUE: Frontal view of the chest. COMPARISON: 05/12/2023 FINDINGS: Lungs and pleural spaces: Stable mild chronic interstitial markings without consolidation or pulmonary edema. No pleural effusion or pneumothorax. Heart: Shape and configuration within normal limits allowing for technique. Mediastinum: Normal contour. Bones/joints: No fracture, erosion or dislocation. Soft tissues: No abnormality noted. No radiopaque foreign body noted. Upper abdomen: No abnormality noted. IMPRESSION: No acute cardiopulmonary disease. ACT 112: Negative or not required by law. Electronically signed by Gwen Kam 08-05-2024 4:18 PM Abdomen/Pelvis CT 08/05/24 15:56 EXAM: CT Abdomen and Pelvis With Intravenous Contrast INDICATION: Shortness of breath and leg cramps. Anemia. TECHNIQUE: Axial computed tomography images of the abdomen and pelvis with intravenous contrast. Sagittal and coronal reformatted images were created and reviewed. This CT exam was performed using one or more of the following dose reduction techniques: automated exposure control, adjustment of the mA and/or kV according to patient size, and/or use of iterative reconstruction technique. CONTRAST: 94ml of Optiray 320 was administered intravenously. COMPARISON: No relevant prior studies available. FINDINGS: Limitations: None. Lung bases: No abnormality noted. Pleural space: No visualized pleural effusion or pneumothorax. Heart: Cardiomegaly. No basilar pericardial effusion. Mediastinum: No abnormality noted. ABDOMEN: Liver: No abnormality noted. Gallbladder and bile ducts: No calcified stones or surrounding fluid. Pancreas: Homogeneous enhancement. No mass, inflammation or ductal dilation. Spleen: No significant abnormality noted. Adrenals: No significant abnormality noted. Kidneys and ureters: The right kidney is small and the nephrogram delayed relative to the left. No hydronephrosis. No stones identified. No perinephric fluid or inflammation. No urinary gas. Stomach and bowel: Suboptimally assessed collapsed stomach. Mild pyloric thickening difficult to exclude. No inflammatory process. Colonic diverticulosis without diverticulitis. No obstruction. PELVIS: Appendix: No findings to suggest acute appendicitis. Bladder: Incompletely distended urinary bladder. No gas or stone. Reproductive: Hysterectomy. ABDOMEN and PELVIS: Intraperitoneal space: No free air. No significant fluid collection. Bones/joints: Lumbosacral degenerative disc disease. No acute osseous abnormality. Soft tissues: No significant abnormality noted. Vasculature: Atherosclerotic calcification of the aorta and branches. No aneurysm. Atherosclerotic calcification of the aorta. 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 No hemorrhage. There is moderate calcific plaque causing some level of stenosis at the origin of the right renal artery, celiac trunk and SMA. Incidental retroaortic left renal vein. Lymph nodes: No pathologically enlarged lymph nodes. IMPRESSION: 1. There may be pyloric thickening. This is suboptimally assessed due to collapse of the stomach. No focal inflammatory process, visible ulceration or perforation. 2. Atrophic right kidney which does enhance but less than the left kidney. Consider renal artery stenosis. ACT 112: Negative or not required by law. Electronically signed by Gwen Kam 08-05-2024 6:34 PM Supervising Physician Co-Signing Physician Notes Patient is an 83-year-old female with history of GERD, CKD stage III, hypertension, depression, hypothyroidism and other medical problems presents with worsening generalized weakness, fatigue since 2 months duration. She also reports poor oral intake due to change in taste of food. She was noted to be eating ice for the past 2 weeks. She also admits to have dyspnea on exertion and has been having ongoing cramps in extremities. Patient also states having very dark tarry stools intermittently. She takes an aspirin but denies any NSAIDs use. She also reports having hemorrhoid in the past. Patient had blood work as outpatient which showed low hemoglobin and was so requested to go to ED for further evaluation. She reports chronic edema which she attributes to amlodipine. Please review HPI for complete details of presentation. I personally reviewed blood work and imaging studies. Hemoglobin 7.1, hematocrit 23.4, MCV 68.6, normal INR, sodium 134, creatinine 1.6, BUN 33, BNP 222. Chest x-ray showed no acute process. CT abdomen showed possible pyloric thickening. Findings suggestive of right atrophic kidney. Outpatient renal ultrasound also suggestive of right kidney atrophy. Outpatient blood work also suggestive of iron deficiency anemia. Physical Exam: Vitals signs as noted above General Appearance:Moderately built and nourished, no apparent distress Head: normocephalic, Atraumatic Eyes: normal inspection, EOMI, + pallor Neck: supple, Trachea midline Respiratory/Chest: Normal breath sounds, CTA, No accessory muscle use Cardiovascular: S1, S2, No murmur Abdomen/GI:Soft, Non tender, Bowel sounds present Extremities/Musculoskeletal:normal inspection, trace edema Neurologic/Psych:AAOX3, grossly no focal neurological deficits Skin: normal color, warm Melena Acute blood loss anemia Symptomatic anemia Iron deficiency anemia Generalized weakness secondary to above Avoid anticoagulation Hold aspirin for now Started on Protonix drip Plan to give 1 unit PRBCs, IV Venofer today Monitor H&H and transfuse as needed Gastroenterology consulted Will check B12, folate, peripheral smear, fecal occult Elevated BNP Chronic leg edema Check resting echo Consider changing amlodipine to other medications to control blood pressure Hypertensive urgency Likely situational, also missed her afternoon antihypertensive Restart home medications Monitor and adjust medications as needed CKD stage III Creatinine at baseline Follows with nephrology as outpatient I personally interviewed and examined at bedside. Patient's care is coordinated with Liudmila Ferraro PA-C. I have reviewed the advanced practitioner's documentation, and I agree with plan of care. Please refer to the documentation above for details of patient's presentation and for discussion of other issues. I spent a total [id number] coordinating, documenting, and providing care for this patient excluding time spent in the performance of separately billed services.
[2024-08-05] MEDS: PANTOprazole 40 MG/10 ML SYR IV ONE (19:18)
[2024-08-05] MEDS: hydrALAZINE HCL 25 MG TAB PO STA (20:07)
[2024-08-05] MEDS ORDERED: ONDANSETRON INJ 2 MG/ML 2 ML VIAL IV PRN (21:10)
[2024-08-05] MEDS ORDERED: PANTOPRAZOLE BOLUS/DRIP IV STA (21:10)
[2024-08-05] MEDS ORDERED: ACETAMINOPHEN 325 MG TAB PO PRN (21:10)
[2024-08-05] MEDS ORDERED: POLYETHYLENE (MIRALAX) 17 GM PACK PO PRN (21:10)
[2024-08-05] MEDS: PANTOprazole 80 MG in DEXTROSE 5% 100 ML IV STA (21:58)
[2024-08-05] MEDS: IRON SUCROSE 300 MG in SODIUM CHLORIDE 0.9% 250 ML IV ONE (21:58)
[2024-08-05] MEDS: ATORVASTATIN 40 MG TAB PO SCH (21:59)
[2024-08-05] MEDS: PANTOprazole 40 MG in DEXTROSE 5% MINI-B 100 ML IV SCH (22:13)
[2024-08-05 23:12] LABS: Hematocrit (blood only) 28.7 % (37.0-47.0); Hemoglobin 8.7 g/dl (12.0-16.0)
[2024-08-05] MEDS: hydrALAZINE HCL 25 MG TAB PO SCH (23:13)
[2024-08-05] MEDS: LOSARTAN POTASSIUM 50 MG TAB PO SCH (23:14)
--- NOTE | 2024-08-06 05:03 | Communication Note ---
Date of Service: August 06, 2024 Made aware by RN of uncontrolled blood pressure. SBP 1 60-200s since admission Heart rate 60 to 80s Patient asymptomatic as per RN. AP Hypertensive urgency Coreg in place of Lopressor (Hold losartan due to kidney dysfunction; caution with amlodipine increase given leg swelling as per admission H&P) Will relay to AM provider.
[2024-08-06] MEDS: LEVOTHYROXINE SODIUM 25 MCG TABLET PO SCH (05:46)
[2024-08-06] MEDS: carvediloL 3.125 MG TAB PO SCH (05:46)
--- NOTE | 2024-08-06 08:14 | Hospitalist Progress Note ---
Date of Service August 06, 2024 Assessment & Plan (1) Symptomatic anemia: (2) Dark stools: Plan: Patient is 83-year-old female with PMH HTN, dyslipidemia, CKD III, CAD, carotid stenosis, depression, hypothyroidism presented to ER for progressive fatigue, SOB and newly found anemia on outpatient labs. Symptomatic anemia: On admission, H/H 7.09/17 Received 1UPRBC in ED; 08/06: 8.7; continue to trend Continue protonix gtt FOBT pending B12 ~1350 GI saw patient; appreciate their reccs Plan for EGD/c-scope on 08/07 GoLytely prep ordered NPO after MN; clears until then if tolerated Last scope 2013 external hemorrhoids and anastomosis (3) Hypertension: Plan: Hypertensive in ER. Reports missed afternoon dose of hydralazine Received Hydralazine in ED Continue home hydralazine, metoprolol succinate, furosemide No edema on examination; restart amlodipine Last seen by nephrology on 05/15/2024 secondary to gradual worsening renal functions. 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 At that time her hydralazine was increased to 25 mg 3 times daily BNP 222 on admission; will obtain repeat ECHO Most recent ECHO 04/2023 EF 55-59%, mild MR/TR, LV wall motion normal and LV wall with mildly concentric. Added Hydralazine PRN with parameters (4) CKD (chronic kidney disease), stage III: Plan: Cr: 1.9 on 06/01/24, 1.4 on 09/06/23; on 08/06 Creatinine 1.55 History renal ultrasound on 12/19/2023: Atrophic right kidney without mention of hydronephrosis or mass Last seen by nephrology on 05/15/2024 secondary to gradual worsening renal functions. 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 At that time her hydralazine was increased to 25 mg 3 times daily Monitor renal functions in AM Nephrology consult placed; appreciate recommendations. Will restart Losarten and Lasix. Ok to continue Amlodipine, Coreg and Hydralazine (5) GERD (gastroesophageal reflux disease): Plan: Hold home oral PPI and switched to IV PPI gtt (6) Hypothyroidism: Plan: Continue home levothyroxine (7) CAD (coronary artery disease): Plan: 2018 CTA shows ~60% right carotid stenosis, with severe circumferential calcification. Duplex has been unabletofully appreciate this degree of disease. Her carotid disease is asymptomatic. Takes atorvastatin and baby ASA Plan DVT Prophylaxis SCDs Admit telemetry Full code as per discussion with pt Follows with Dr Renee Meeks for routine care Admission and Anticipated Discharge Date Admission Date: August 05, 2024 Supervising Physician Co-Signing Physician Notes delayed entry date of service noted above Attending Addendum: Case reviewed with the advanced practitioner. I have personally performed a history and physical examination on the patient. I have reviewed the advanced practitioner's documentation on the date of service referenced in note, and I agree with, and take responsibility for the plan of care. please refer to her notes for full details patient seen and examined, records reviewed by myself as well Juan Rivera MD Subjective Pt lying in her hospital bed in no apparent distress. She was talking on the phone with her daughter, Renetta, who I also provided an update. She reports feeling fatigued. Pt denies COURTNEY, dizziness, chest pain, SOB, palpitations, N/V/D, hematochezia or hematemesis. Please see A/P for further details for POC. Review of Systems Review of Systems: Neuro: (-) Falls, trauma, slurred speech HEENT: (-) COURTNEY, dizziness, dysphagia, visual or auditory changes CV: (-) CP, palpitations, swelling Resp: (-) SOB GI: (-) appetite changes, N/V/D, bowel changes : (-) urinary changes Skin: (-) rashes Psych: (-) anxiety, depression Physical Exam Physical Exam: Neuro: AAOx4, PERRLA, no aphagia, memory changes, CNII-XII grossly intact HEENT: head normocephalic, moist mucus membranes CV: S1/S2, (-) M/G/R, (-) edema, cap refill < 3 seconds Resp: Lungs CTA in all [facility]. On RA GI: Abdomen S/NT/ND, Ax4 bowel sounds, (-) CVA tenderness Musculoskeletal: 5/5 B/L UE strength, 5/5 B/L LE strength. No gait disturbance Skin: (-) rashes , (-) erythema. Psych: euthymic mood Results & Data Results & Data Vital Signs (Past 12 Hours) Vital Signs Temp Pulse Pulse Resp BP BP BP 08/06/24 07:43 36.5 C 76 20 174/91 H 08/06/24 07:14 72 08/06/24 03:14 36.8 C 68 16 184/66 H 08/05/24 23:38 36.4 C L 72 18 194/64 H 08/05/24 22:26 36.7 C 73 18 196/66 H 08/05/24 22:01 78 08/05/24 21:50 36.7 C 73 18 196/66 H 08/05/24 21:28 36.6 C 83 16 200/65 H 08/05/24 21:09 82 08/05/24 20:50 36.6 C 80 18 203/44 H 08/05/24 20:50 36.6 C 80 16 203/44 H 08/05/24 20:34 36.8 C 70 16 163/55 H 08/05/24 20:20 36.6 C 72 20 183/66 H Pulse Ox O2 Del Method O2 Flow Rate 08/06/24 07:43 92 Room Air 08/06/24 07:14 08/06/24 03:14 96 Room Air 08/05/24 23:38 96 Room Air 08/05/24 22:26 97 08/05/24 22:01 08/05/24 21:50 97 08/05/24 21:28 99 0 08/05/24 21:09 08/05/24 20:50 98 Room Air 08/05/24 20:50 98 0 08/05/24 20:34 98 08/05/24 20:20 96 Laboratory Results Short CBC 08/05/24 08/05/24 08/06/24 Range/Units 15:54 22:40 08:27 WBC 6.22 9.43 (4.8-10.8) K/ul Hgb 7.1 L 8.7 L 8.7 L (12.0-16.0) g/dl Hct 23.4 L 28.7 L 27.8 L (37.0-47.0) % Plt Count 478 H 447 H (130-400) K/uL BMP 08/05/24 08/06/24 15:54 08:27 Sodium 134 L 133 L Potassium 3.9 3.7 Chloride 101 103 Carbon Dioxide 25 23 BUN 33 H 22 Creatinine 1.67 H 1.55 H Glucose 91 95 Calcium 9.3 8.8 Liver Function 08/05/24 Range/Units 15:54 Total Bilirubin 0.4 (0.2-1.0) mg/dl AST 15 (13-39) U/L ALT 12 (7-52) U/L Alkaline Phosphatase 58 (34-104) U/L Albumin 3.9 (3.4-5.0) gm/dl Urine 08/06/24 Range/Units Unknown Urine Color Yellow Urine Appearance Clear (Clear) Urine pH 6.0 (4.5-7.5) Ur Specific [place] 1.010 (1.000-1.030) Urine Protein Negative (Negative) Urine Glucose (UA) Negative (Negative)
[2024-08-06] MEDS: amLODIPine BESYLATE 5 MG TAB PO SCH (08:17)
[2024-08-06] MEDS: ESCITALOPRAM OXALATE 10 MG TAB PO SCH (08:17)
[2024-08-06] MEDS: FUROSEMIDE 20 MG TAB PO SCH (08:17)
--- NOTE | 2024-08-06 08:35 | Electrocardiogram Report ---
Test Reason : Blood Pressure : */* mmHG Vent. Rate : 71 BPM Atrial Rate : 71 BPM P-R Int : 166 ms QRS Dur : 84 ms QT Int : 420 ms P-R-T Axes : 53 3 36 degrees QTcB Int : 456 ms Normal sinus rhythm Diffuse Minor Nonspecific ST abnormality Abnormal ECG When compared with ECG of 12-May-2023 13:06, Premature ventricular complexes are no longer Present Confirmed by Jeremy Clemente ([id number]) on 08/06/2024 8:34:56 AM Referred By: REFERRED SELF Confirmed By: Jeremy Clemente
[2024-08-06 08:57] LABS: Hematocrit (blood only) 27.8 % (37.0-47.0); Hemoglobin 8.7 g/dl (12.0-16.0); Mean Corpuscular Hemoglobin 22.3 pg (25.0-34.0); Mean Corpuscular Hgb Conc 31.3 g/dL (32.0-36.0); Mean Corpuscular Volume 71.1 fL (80.0-100.0); Mean Platelet Volume 8.9 fL (9.4-12.4); Platelet Count 447 K/uL (130-400); RDW Coefficient of Variation 17.5 % (11.5-14.5); RDW Standard Deviation 44.6 fL (36.4-46.3); Red Blood Count 3.91 M/uL (4.20-5.40); White Blood Count 9.43 K/ul (4.8-10.8)
[2024-08-06] MEDS ORDERED: METOPROLOL SUCC 25MG EXT REL TAB PO SCH (09:00)
[2024-08-06] MEDS ORDERED: hydrALAZINE HCL 25 MG TAB PO SCH (09:00)
[2024-08-06] MEDS ORDERED: LOSARTAN POTASSIUM 50 MG TAB PO SCH (09:00)
[2024-08-06 09:12] LABS: BUN Creatinine Ratio 14.2 (10-20); Calcium 8.8 mg/dl (8.6-10.3); Creatinine Clr Calc Pharmacy 20.5 ml/min; Potassium 3.7 mmol/L (3.5-5.1)
[2024-08-06 09:38] LABS: Folate (Folic Acid),Ser orPlas 12.93 ng/ml (>5.38)
--- NOTE | 2024-08-06 10:55 | Gastrointestinal Consultation ---
Date of Consultation August 06, 2024 Assessment & Plan (1) Symptomatic anemia: (2) Dark stools: Plan Patient is an 83 year old female who was admitted with complaints of fatigue and shortness of breath. she had outpatient labs revealing new anemia. CT showing possible pyloric thickening. she reports dark stools, but it does not sound like true melena. I discussed the case with Dr. May. - continue to follow hgb/hct and transfuse as needed. - we discussed a Colonoscopy/EGD to further evaluate anemia. she tells me she would be interested in having done. will plan to prep today and perform procedures tomorrow. - continue with Protonix drip for now. - further recommendations to follow, see MD append. Supervising Physician Co-Signing Physician Notes I examined the patient and reviewed patient's chart , laboratory data and imaging studies. I agree with with assessment and plan of care as suggested by advanced practice provider. New onset of microcytic anemia, presumed iron deficiency. Chronic symptoms of reflux, on omeprazole. No other GI symptoms. The most recent colonoscopy was more than 10 years ago. Schedule EGD and colonoscopy for tomorrow. History of Present Illness Reason for Consultation: GIB Requesting Physician: John Fuentes MD Attending Physician: Juan Rivera MD History of Present Illness Patient is an 83 year old female with a past medical history of HTN, dyslipidemia, CKD III, CAD, carotid stenosis, depression, and hypothyroidism presented to the ED for issues with fatigue, SOB, and newly found anemia on outpatient labs. Hgb was 7.2 as outpatient. she was given 1 unit PRBC since arrival. She reports that she has been having constipation issues her whole life, but maybe worse recently. stools have been a dark brown, but not black. She has been using stool softeners otc with benefit for the constipation. She does admit to some acid reflux, but this is controlled as an outpatient with omeprazole 20mg bid. she denies any issue with nausea, vomiting, dypshagia, abdominal pain. Last colonoscopy was done in 2012 showing external hemorrhoids and anastomosis of right colon. She had a hemicolectomy in the past secondary to an obstruction. 08/06/24 hgb 8.7, hct 27.8, wbc 9.43, mcv 71.1, platelets 447, BUN [address], [address] 08/05/24 There may be pyloric thickening. This is suboptimally assessed due to collapse of the stomach. No focal inflammatory process, visible ulceration or perforation. Atrophic right kidney which does enhance but less than the left kidney. Consider renal artery stenosis. Allergies Allergy/AdvReac Type Severity Reaction Status Date / Time No Known Allergies Allergy Verified 08/01/18 06:35 Home Medications Medication Instructions Recorded Confirmed Type cholecalciferol (vitamin D3) 50 2,000 unit PO QPM 04/16/18 08/05/24 History mcg (2,000 unit) capsule (Vitamin D3) docusate sodium 100 mg tablet 100 mg PO BID Constipation 04/16/18 08/05/24 History escitalopram oxalate 10 mg tablet 10 mg PO QAM 04/16/18 08/05/24 History fluticasone propionate 50 1 spray intranasal DAILY PRN 04/16/18 08/05/24 History mcg/actuation nasal Congestion spray,suspension (Flonase Allergy Relief) losartan 100 mg tablet 100 mg PO DAILY 07/23/18 08/05/24 History vitamin E 670 mg (1,000 unit) 1,000 unit PO DAILY 07/23/18 08/05/24 History capsule amlodipine 2.5 mg tablet 2.5 mg PO DAILY 08/05/24 08/05/24 History aspirin 81 mg tablet,delayed 81 mg PO DAILY 08/05/24 08/05/24 History release atorvastatin 40 mg tablet 40 mg PO QPM 08/05/24 08/05/24 History coenzyme Q10 100 mg capsule (Co 100 mg PO QAM 08/05/24 08/05/24 History Q-10) furosemide 20 mg tablet 20 mg PO DAILY 08/05/24 08/05/24 History hydralazine 25 mg tablet 25 mg PO TID 08/05/24 08/05/24 History levothyroxine 25 mcg tablet 25 mcg PO DAILYBB 08/05/24 08/05/24 History metoprolol succinate 25 mg 25 mg PO DAILY 08/05/24 08/05/24 History tablet,extended release 24 hr omeprazole 20 mg capsule,delayed 20 mg PO AMPM 08/05/24 08/05/24 History release Patient History Medical History Anxiety Cervical radiculopathy SOB (shortness of breath) on exertion Surgical History History of tonsillectomy H/O hemicolectomy 2/2 bowel obstruction H/O hysterectomy with oophorectomy one ovary remains H/O tubal ligation H/O colonoscopy History of carpal tunnel release duplicate Social History Smoking Status: Never smoker Second Hand Exposure: No; Do You Dip or Chew Tobacco: No; Hx Alcohol Use: Yes Alcohol type: hard liquor Hx Substance Use: No Preferred Language: [place] Communication Ability: Effective Burglar Alarm Assembler Required: No Beliefs That Will Affect Care: None Current Living Situation: Spouse Other Information That Helps Us Care for You: No Feels Safe at Home: Yes Safety Concerns: Feels Safe At This Time Assistive Devices: None Review of Systems Review of Systems: All systems reviewed & are unremarkable except as noted in HPI & below Constitutional: + chills, + SOB, + cough. Physical Exam Constitutional: WD/WN, vitals as above Respiratory: normal respiratory effort, lungs clear to auscultation Cardiovascular: Rate/Rhythm: regular rate and regular rhythm Gastrointestinal (Abdomen): mild diffuse tenderness, no guarding, soft, normal bowel sounds. Psychiatric: Orientation: alert and oriented x 3 Affect: euthymic affect Results & Data Vital Signs (Past 12 Hours) Vital Signs Temp Pulse Pulse Resp BP BP Pulse Ox 08/06/24 07:43 97.7 F 76 20 174/91 H 92 08/06/24 07:14 72 08/06/24 03:14 98.2 F 68 16 184/66 H 96 08/05/24 23:38 97.5 F L 72 18 194/64 H 96 O2 Del Method 08/06/24 07:43 Room Air 08/06/24 07:14 08/06/24 03:14 Room Air 08/05/24 23:38 Room Air Coding Level of Care Code 68006 INT INP/OBS CARE 2/55MIN Diagnoses Symptomatic anemia D64.9 Dark stools R19.5
--- NOTE | 2024-08-06 11:18 | Nephrology Consultation ---
Date of Consultation August 06, 2024 Assessment & Plan (1) Hypertension: BP is high. Continue lasix 20 , Amlo 2.5, Coreg and Hydralazine. She can restart the losartan. Current Creat is about same/Slightly better than her recent outpt creat. raise coreg dose if allowed by HR/Cardiac rhythm. Most recent blood pressure has now gone down to 155 x 62 which is acceptable for the current setting Of GI bleed. (2) CKD (chronic kidney disease) stage 4, GFR 15-29 ml/min: last outpt creat of 1.9 GFR of 27 does put her at CKD stage 4 but blood work prior to that was more in line with CKD 3B sec to HTN and Age. current creatinine is slightly better than her baseline. Given this she can restart the losartan Also C/o urine frequency so check urine C/s if not done already. daily CBC and renal panel. History of Present Illness Reason for Consultation: CKD and HTN management Attending Physician: Juan Rivera MD History of Present Illness 83/F with known CKD 3B/4 with more recent baseline creat of 1.9 as of ( sees dr Hernandez) sec to HTN. Also has CAD, carotid stenosis, depression, hyp othyroidism presented to ER for progressive fatigue and newly found anemia on outpatient labs. Progressive generalized weakness over last few months. Feeling SOB with exertion for past month. Having cramps in legs and hands. States decreased appetite. Reports chronic heartburn. Having some constipation and used laxative at home with relief. Stools described as very dark. Denies any bright red blood from rectum. Denies dysuria or hematuria. Reports bilateral leg swelling that is chronic and feels from her amlodipine. Denies fever/chills, diaphoresis, N/V, COURTNEY, syncope, vision changes, neck pain, CP, orthopnea, palpitations, cough, sore throat, rhinorrhea, abdominal pain, paresthesias, extremity edema, rashes. BP is running higher. Current creat is abnormal but similar to baseline. Home losartan is on hold. But getting other meds. metoprool changed to coreg. hgb was 7.1 and did get PRBC and now is 8.7. seen by GI and plan for EGD/Colonoscopy. Currently on protonix drip. ROS--C/o weakness and Also urinary frequency. Otherwise 12 Systems reviewed and negative. Physical examination elderly white female who is not in any respiratory distress she is awake alert oriented and was able to give her detailed account of her medical problem. mucous membrane is moist neck is supple no JVD chest bilateral clear to auscultation CVS S1 and S2 regular no murmur or gallop heard abdomen is soft nontender extremities shows trace edema skin does not show any rash Allergies Allergy/AdvReac Type Severity Reaction Status Date / Time No Known Allergies Allergy Verified 08/01/18 06:35 Home Medications Medication Instructions Recorded Confirmed Type cholecalciferol (vitamin D3) 50 2,000 unit PO QPM 04/16/18 08/05/24 History mcg (2,000 unit) capsule (Vitamin D3) docusate sodium 100 mg tablet 100 mg PO BID Constipation 04/16/18 08/05/24 History escitalopram oxalate 10 mg tablet 10 mg PO QAM 04/16/18 08/05/24 History fluticasone propionate 50 1 spray intranasal DAILY PRN 04/16/18 08/05/24 History mcg/actuation nasal Congestion spray,suspension (Flonase Allergy Relief) losartan 100 mg tablet 100 mg PO DAILY 07/23/18 08/05/24 History vitamin E 670 mg (1,000 unit) 1,000 unit PO DAILY 07/23/18 08/05/24 History capsule amlodipine 2.5 mg tablet 2.5 mg PO DAILY 08/05/24 08/05/24 History aspirin 81 mg tablet,delayed 81 mg PO DAILY 08/05/24 08/05/24 History release atorvastatin 40 mg tablet 40 mg PO QPM 08/05/24 08/05/24 History coenzyme Q10 100 mg capsule (Co 100 mg PO QAM 08/05/24 08/05/24 History Q-10) furosemide 20 mg tablet 20 mg PO DAILY 08/05/24 08/05/24 History hydralazine 25 mg tablet 25 mg PO TID 08/05/24 08/05/24 History levothyroxine 25 mcg tablet 25 mcg PO DAILYBB 08/05/24 08/05/24 History metoprolol succinate 25 mg 25 mg PO DAILY 08/05/24 08/05/24 History tablet,extended release 24 hr omeprazole 20 mg capsule,delayed 20 mg PO AMPM 08/05/24 08/05/24 History release Patient History Medical History Anxiety Cervical radiculopathy SOB (shortness of breath) on exertion Surgical History History of tonsillectomy H/O hemicolectomy 2/2 bowel obstruction H/O hysterectomy with oophorectomy one ovary remains H/O tubal ligation H/O colonoscopy History of carpal tunnel release duplicate Social History Smoking Status: Never smoker Second Hand Exposure: No; Do You Dip or Chew Tobacco: No; Hx Alcohol Use: Yes Alcohol type: hard liquor Hx Substance Use: No Preferred Language: Vietnamese Communication Ability: Effective Juvenile Court Judge Required: No Beliefs That Will Affect Care: None Current Living Situation: Spouse Other Information That Helps Us Care for You: No Feels Safe at Home: Yes Safety Concerns: Feels Safe At This Time Assistive Devices: Glasses Results & Data Vital Signs (Past 12 Hours) Vital Signs Temp Pulse Pulse Resp BP BP Pulse Ox 08/06/24 07:43 36.5 C 76 20 174/91 H 92 08/06/24 07:14 72 08/06/24 03:14 36.8 C 68 16 184/66 H 96 08/05/24 23:38 36.4 C L 72 18 194/64 H 96 O2 Del Method 08/06/24 07:43 Room Air 08/06/24 07:14 08/06/24 03:14 Room Air 08/05/24 23:38 Room Air Laboratory Results CBC, renal panel
[2024-08-06] MEDS ORDERED: LAVAGE SOLUTION 4000ML PO SCH ×2 (11:30→16:00)
[2024-08-06 12:31] LABS: Appearance Urine Clear (Clear); Bilirubin Urine Negative (Negative); Blood Urine Negative (Negative); Color Urine Yellow; Glucose Urine UA Negative (Negative); Ketones Urine Negative (Negative); Leukocyte Esterase Urine Negative (Negative); Nitrite Urine Negative (Negative); Protein Urine Negative (Negative); Urobilinogen Urine Negative (Negative)
[2024-08-06 15:21] LABS: Hematocrit (blood only) 28.2 % (37.0-47.0); Hemoglobin 8.6 g/dl (12.0-16.0)
[2024-08-06] MEDS: LAVAGE SOLUTION 4000ML PO SCH (17:08)
[2024-08-07] MEDS: hydrALAZINE HCL 20 MG/ML VIAL IV PRN (00:38)
--- OUTSIDE RECORDS SUMMARY | 2024-08-07 07:41 | External Medical Summary | Summary of Care ---
Author Name Unknown Organization [facility] Address [address] [place] [address] Phone [phone] Care Team Providers Care Director Family Name Role Phone RajinderRenee carter Treva SAAB Primary Care Provider [phone] Encounter Details Date Type Department Care Team (Late st Contact Info) Description 06/23/2024 11:00 AM EDT Telemedicine Vascular Surg [facility] [address], [place] [id number] Tyler Rose CRNP [address], [place] [id number] Carotid stenosis, non-symptomatic, bilateral*; Dyslipidemia, goal LDL below 70 Allergies No known active allergiesdocumented as of this encounter (statuses as of 06/23/2024) Medications Medication Sig Dispensed Refills Start Date End Date Status fluticasone (FLONASE) 50 MCG/ACT nasal sprayIndications:Ea r pain, bilateral,Nasal sinus congestion Administer 2 Sprays into each nostril daily. 1 Inhaler 5 05/02/2017 Active EQ ASPIRIN ADULT LOW DOSE 81 MG TBECIndications:Isc hemic chest pain (HCC),Abnormal nuclear stress test TAKE ONE TABLET BY MOUTH ONCE DAILY 90 Tab 3 05/29/2018 Active Vitamin E 1000 UNIT Oral Capsule Take 1 Capsule by mouth in the morning. 1 Cap 06/13/2018 Active traMADol (ULTRAM) 50 MG TabletIndications:C hronic right shoulder pain TAKE 1 TABLET BY MOUTH EVERY 6 HOURS NEEDED FOR MILD PAIN 30 Tab 03/13/2019 Active senna-docusate (SENNA S) 8.6-50 MG per tabletIndications:C onstipation, unspecified constipation type Take 1 Tab by mouth 2 times a day. 60 Tab 3 11/02/2019 Active Ubiquinol 100 MG Oral Capsule Take 1 Tablet by mouth in the morning. Active Hydrocortisone (Perianal) 2.5 % External Cream (Anusol-HC)Indicati ons:Hemorrhoids, external without complications Administer into the rectum 2 times a day. 28 g 3 08/28/2021 Active Vitamin D3 10 MCG (400 UNIT) Oral Capsule Take 1 Capsule by mouth in the morning. Active Metoprolol Succinate ER 25 MG Oral Tablet Extended Release 24 Hour (toPROL XL)Indications:Esse ntial hypertension TAKE 1 TABLET BY MOUTH DAILY 90 Tablet 3 10/18/2023 5 Active Omeprazole 20 MG Oral Capsule Delayed Release (PriLOSEC) TAKE ONE CAPSULE BY MOUTH EVERY DAY 30 MINUTES BEFORE MORNING AND EVENING MEALS 200 Capsule 3 10/31/2023 5 Active Furosemide 20 MG Oral Tablet (Lasix)Indications: HTN, goal below 130/80,Chronic diastolic congestive heart failure (HCC) TAKE 1 TABLET BY MOUTH ONCE DAILY 90 Tablet 3 11/11/2023 5 Active Losartan Potassium 100 MG Oral Tablet (Cozaar)Indications :Essential hypertension TAKE ONE TABLET BY MOUTH EVERY DAY 100 Tablet 3 11/18/2023 Active Atorvastatin Calcium 40 MG Oral Tablet (Lipitor)Indication s:Abnormal nuclear stress test TAKE ONE TABLET BY MOUTH EVERY DAY 100 Tablet 2 11/23/2023 5 Active Escitalopram Oxalate 10 MG Oral Tablet (Lexapro)Indication s:Dysthymia TAKE ONE TABLET BY MOUTH EVERY DAY 100 Tablet 3 11/27/2023 Active Additional Information Patient not taking.Reported on 06/01/2024 Biotin 5000 MCG Oral Tablet Chewable Take 2 Tablets by mouth in the morning. Active hydrALAZINE HCl 25 MG Oral Tablet (Apresoline) Take 1 Tablet by mouth in the morning and 1 Tablet at noon and 1 Tablet before bedtime. 270 Tablet 3 05/15/2024 Active Levothyroxine Sodium 25 MCG Oral Tablet (Levoxyl) TAKE 1 TABLET BY MOUTH DAILY AT LEAST 30 MINUTES PRIOR TO FIRST MEAL OF THE DAY OR OTHER MEDICATIONS 100 Tablet 1 05/23/2024 Active amLODIPine Besylate 2.5 MG Oral Tablet (Norvasc)Indication s:HTN, goal below 140/90 Take 1 Tablet by mouth in the morning. 90 Tablet 3 06/01/2024 Active documented as of this encounter (statuses as of 06/23/2024) Active Problems Problem Noted Date Diagnosed Date Hypertensive heart disease w ith chronic diastolic congestive heart failure 11/04/2023 Hypothyroidism due to medication 05/13/2023 Chronic diastolic congestive heart failure 11/13 PVC (premature ventricular contraction) 11/14/19 23 Major depressive disorder, recurrent, unspecifie d 07/09/2019 Carotid stenosis, non-symptomatic, bilateral 12/2017 Coronary artery disease invo lving anvik coronary artery of anvik heart without angina pectoris 07/11/2016 Dyslipidemia, goal LDL below 70 07/11/2016 Gastroesophageal reflux disease without esophagi tis HTN, goal below 140/90 documented as of this encounter (statuses as of 06/23/2024) Resolved Problems Problem Noted Date Diagnosed Date Resolved Date Episode of recurrent major d epressive disorder 05/13/2023 11/04/2023 Asymptomatic stenosis of right carotid artery 06/13/20 18 07/07/2019 Overview: history Atherosclerosis of right carotid artery 05/01/2018 06/13/2018 Kidney disease, chronic, sta ge III (GFR 30-59 ml/min) 12/03/2017 03/13/2018 Overview: Per CKD protocol #1 OA (osteoarthritis) 07/11/2016 12/13/19 18 Abnormal nuclear stress test 06/12/2016 07/11/2016 Depression 10/19/2019 Overview: history documented as of this encounter (statuses as of 06/23/2024) Immunizations Name Administration Dates Next Due COVID-19 mRNA, LNP-s, No Pre serve, 2-Dose Series (Moderna) 03/16/2022,08/04/2021,10/21/2020,09/22 COVID-19, MRNA-LNP, 23-24, P F, 50 MCG/0.5 mL, 12 YRS AND ABOVE, IM (MODERNA-Spikevax) 07/05/2023 Pneumococcal Conjugate Vacc, 13 Valent (Prevnar) 11/18/2014 Pneumococcal Conjugate Vacci ne, 7 Valent 03/27/2012 Pneumococcal Polysaccharide PPV23 (Pneumovax) 07/09/2019 Seasonal Influenza Vac., MDV , IM, 0.5 mL (Fluzone) 07/10/2016 Seasonal Influenza, High Dos e, Trivalent, PF, IM (Fluzone HD) 06/01/2024 Seasonal Influenza, PF, 6 M & above, IM , (FluLaval or Fluzone) 05/30/2020,05/04/2019 Seasonal Influenza, Quadriva lent Hd (Fluzone Hd) 07/05/2023,05/14/2022,06/29/2021 Seasonal Influenza, Quadriva lent, No Preserve, IM 06/07/2017,05/20/2014,05/31/2011 TD - Tetanus/Diptheria (ADULT) 04/25/2000 TDAP (age 10 and older)(Boostrix) 06/07/2016 Zoster Vaccine Recombinant (Shingrix) 06/18/2022 ,10/02/2021 documented as of this encounter Social History Tobacco Use Types Packs/Day Years Used Date Smoking Tobacco: Never Smokeless Tobacco: Never Alcohol Use Standard Drinks/Week Comments Yes 0 (1 standard drink = 0.6 oz pur e alcohol) very rare PHQ-2 Answer Date Recorded PHQ Adult Total Score 1 01/13/2024 Hunger Vital Sign Answer Date Recorded Within the past 12 months, y ou worried that your food would run out before you got the money to buy more. Never true 06/01/20 24 Within the past 12 months, t he food you bought just didn't last and you didn't have money to get more. Never true 06/01/2024 Childcare Answer Date Recorded Do you feel overwhelmed with taking care of a child, family member or friend? No 06/01/2024 Does your family need help f inding childcare? (Household - for ages 0-17 years) Not on file 06/01/2024 Clothing Answer Date Recorded Have you been unable to get clothing when it was really needed? No 06/01/2024 Is your family able to get c lothes or diapers when needed? (Household - for ages 0-17 years) Not on file 06/01/2024 Personal Safety Answer Date Recorded Do you feel unsafe or have concerns for your saf ety? No 06/01/2024 Do you have concerns for you r family's safety? (Household - for ages 0-17 years) Not on file 06/01/2024 Utilities Answer Date Recorded Do you have trouble paying y our heating, water, or electric bill? No 06/01/2024 Is your family able to pay t he heat, water, or electric bill? (Household - for ages 0-17 years) Not on file 06/01/2024 Does your family have access to good internet? (Household - for ages 0-17 years) Not on file 06/01/2024 Employment Status Answer Date Recorded Are you unemployed or without regular income? No 06/01/2024 Does the household have a re lar source of income? (Household - for ages 0-17 years) Not on file 06/01/2024 Social Connections Answer Date Recorded How often do you feel lonely or isolated from th ose around you? Never 06/01/2024 Financial Resource Strain Answer Date R ecorded Do you have any trouble payi ng for your medications, or do you think you might in the future? No 06/01/2024 Does your family have troubl e paying for medicine? (Household - for ages 0-17 years) Not on file 06/01/2024 Transportation Needs Answer Date Record ed Do you have trouble getting a ride to medical visits or work? (Adult - for ages 18 years and over) Not on file 06/01/2024 Does your family have a hard time getting a ride to doctors visits? (Household - for ages 0-17 years) Not on file 06/01/2024 Has lack of transportation k ept you from medical appointments, meetings, work, or from getting things needed for daily living? Check all that apply. No 06/01/2024 Do you (or your family) have trouble finding or paying for a ride (transportation)? (Household - for ages 0-17 years) Not on file 06/01/2024 Housing Stability Answer Date Recorded Do you currently live in a s helter or have no steady place to sleep at night? No 06/01/2024 Do you think you are at risk of becoming homeless? (Adult - for ages 18 years and over) Not on file 06/01/2024 Does your family worry about paying for your home or becoming homeless? (Household - for ages 0-17 years) Not on file 1 Are you homeless or worried that you might be in the future? No 06/01/2024 Are you (or your family) arsenio eless or worried that you might be in the future? (Household - for ages 0-17 years) Not on file Food Insecurity Answer Date Recorded Do you need food for this week? No 06/01/2024 Are you able to get enough f ood for your family? (Household - for ages 0-17 years) Not on file 06/01/2024 Does your family need food t his week? (Household - for ages 0-17 years) Not on file 06/01/2024 Do you always have enough fo od for your family? (Household - for ages 0-17 years) Not on file 06/01/2024 Sex and Gender Information Value Date Recorded Sex Assigned at Female 12/29/2018 12:08 PM EDT Gender Identity Female 12/29/2018 12:08 PM EDT Sexual Orientation Straight 12/29/2018 12 :08 PM EDT Job Start Date Occupation Industry Not on file Not on file Not on file documented as of this encounter Progress Notes * Tyler oRse CRNP - 06/23/2024 11:09 AM EDT I was in a hospital or clinic location. After connecting through phone, patient was verified with two unique identifiers. Patient (or authorized legal visitor services representative) was then informed that this was a Telemedicine visit and being conducted confidentially over secure lines. Methods to assure confidentiality were taken. Patient acknowledged consent and understanding of privacy and security of the Telemedicine visit. The patient agreed to participate. After connecting to the patient via telephone, the patient was identified by name and date of . Patient was then informed that this was a telephone call only visit. The patient agreed to participate. Visit Disposition: Routine follow-up Total call duration was 5 minutes. Requested telephonic r/t travel. Date of Service: 06/23/2024 11:09 AM Hue Gann is a 83 year old female. Referring Physician: Renee Meeks DO Chief Complaint: F/u carotid stenosis. HPI: 2018 pre-op workup for cervical spine stenosis (pain, pain radiating down arms, legs weak) led to an ED visit for severe HTN. In ED had a carotid duplex. Additional pharmacotherapy has been introduced to help with HTN management. The carotid duplex was abnormal and she was advised to see vascular prior to being cleared for cervical spine surgery. We met her 06/02/18 and reviewed her 03/2018 carotid duplex which noted markedly elevated systolic velocity of the right carotid, but low diastolic velocity. We advised getting a CTA of the carotids, both to confirm degree of stenosis as well as determine if we could anatomically get her neck in a position for a CEA, or if she would need a stent (and if stent, evaluate for degree of calcification). CTA showed circumferentially calcified plaque with about 60-70% stenosis, and we advised that she proceed with cervical spine surgery and medically manage the carotid disease. She underwent neck surgery 07/[address] Yee. We have continued with medical management of her asymptomatic carotid disease. CAROTID DISEASE: Right-handed. Unaware of any prior stroke or TIA. Patient denies recent TIA, recent stroke and recent amaurosis fugax. Current Outpatient Medications Medication Sig Dispense Refill fluticasone (FLONASE) 50 MCG/ACT nasal spray Administer 2 Sprays into each nostril daily. 1 Inhaler5 EQ ASPIRIN ADULT LOW DOSE 81 MG TBEC TAKE ONE TABLET BY MOUTH ONCE DAILY 90 Tab 3 Vitamin E 1000 UNIT Oral Capsule Take 1 Capsule by mouth in the morning. 1 Cap 0 traMADol (ULTRAM) 50 MG Tablet TAKE 1 TABLET BY MOUTH EVERY 6 HOURS NEEDED FOR MILD PAIN 30 Tab 0 senna-docusate (SENNA S) 8.6-50 MG per tablet Take 1 Tab by mouth 2 times a day. 60 Tab 3 Ubiquinol 100 MG Oral Capsule Take 1 Tablet by mouth in the morning. Hydrocortisone (Perianal) 2.5 % External Cream (Anusol-HC) Administer into the rectum 2 times a day. 28 g 3 Vitamin D3 10 MCG (400 UNIT) Oral Capsule Take 1 Capsule by mouth in the morning. Metoprolol Succinate ER 25 MG Oral Tablet Extended Release 24 Hour (toPROL XL) TAKE 1 TABLET BY MOUTH DAILY 90 Tablet 3 Omeprazole 20 MG Oral Capsule Delayed Release (PriLOSEC) TAKE ONE CAPSULE BY MOUTH EVERY DAY 30 MINUTES BEFORE MORNING AND EVENING MEALS 200 Capsule 3 Furosemide 20 MG Oral Tablet (Lasix) TAKE 1 TABLET BY MOUTH ONCE DAILY 90 Tablet 3 Losartan Potassium 100 MG Oral Tablet (Cozaar) TAKE ONE TABLET BY MOUTH EVERY DAY 100 Tablet 3 Atorvastatin Calcium 40 MG Oral Tablet (Lipitor) TAKE ONE TABLET BY MOUTH EVERY DAY 100 Tablet 2 Escitalopram Oxalate 10 MG Oral Tablet (Lexapro) TAKE ONE TABLET BY MOUTH EVERY DAY (Patient not taking: Reported on 06/01/2024) 100 Tablet 3 Biotin 5000 MCG Oral Tablet Chewable Take 2 Tablets by mouth in the morning. hydrALAZINE HCl 25 MG Oral Tablet (Apresoline) Take 1 Tablet by mouth in the morning and 1 Tablet at noon and 1 Tablet before bedtime. 270 Tablet 3 Levothyroxine Sodium 25 MCG Oral Tablet (Levoxyl) TAKE 1 TABLET BY MOUTH DAILY AT LEAST 30 MINUTES PRIOR TO FIRST MEAL OF THE DAY OR OTHER MEDICATIONS 100 Tablet 1 amLODIPine Besylate 2.5 MG Oral Tablet (Norvasc) Take 1 Tablet by mouth in the morning. 90 Tablet 3 No current facility-administered medications for this visit. REVIEW OF SYSTEMS: Constitutional: Denies fever, Denies shaking chills. Eyes: Denies amaurosis fugax Cardiovascular: denies chest pains Respiratory: denies shortness of breath Neurological: denies TIA, denies CVA, denies amaurosis fugax. Hematologic: denies hx of DVT/PE. GENERAL MULTI-SYSTEM PHYSICAL EXAM: VITAL SIGNS: There were no vitals taken for this visit. GENERAL MULTI-SYSTEM PHYSICAL EXAM: RESPIRATORY: respiratory effort normal PSYCHIATRIC: orientation to time, place and person normal and recent and remote memory normal. DIAGNOSTIC STUDIES: 06/22/24: Carotid Duplex: DIONE 237/56, LICA 84/12 06/13/23: Carotid Duplex: DIONE 189/49, LICA 68/11 The above diagnostic images were directly visualized and independently interpreted by me on 06/23/2024 with results as above 06/22/22: carotid duplex DIONE 172/41, LICA 59/13 09/20/21: Carotid Duplex: DIONE 160/43, LICA 62/17 06/14/21: Carotid Duplex: DIONE 160/40, LICA 70/20 12/19/20: Carotid Duplex: DIONE 137/35, LICA 62/12 03/29/20: Carotid Duplex: DIONE 144/30, LICA 51/14 09/15/19: Carotid Duplex: DIONE 152/37, LICA 55/14 11/27/18: Carotid Duplex: DIONE 150/40, LICA 54/14 06/13/18: CTA Carotid: ~60% right carotid stenosis with severe circumferential calcification. <50% left carotid stenosis. 04/17/18: Carotid Duplex ([facility]): DIONE 437/39, LICA 47/9 LABS CREATININE (mg/dL) Date Value 06/01/2024 1.9 (H) 09/21/2020 1.1 (H) Triglycerides (mg/dL) Date Value 07/22/2023 113 05/30/2020 128 The above clinical lab tests were reviewed by me on 06/23/2024 IMPRESSIONS: Asymptomatic ~60% right carotid stenosis (per 2018 CTA), with severe circumferential calcification,not fully appreciated on duplex. Asymptomatic <50% left carotid stenosis. NEVER-smoker. HTN. CAD. Dyslipidemia. Lipitor 40mg CKD. PLAN: The patient was counseled regarding the pathophysiology and natural history of carotid disease, as well as the symptoms of CVA/TIA/amaurosis fugax. 2018 CTA shows ~60% right carotid stenosis, with severe circumferential calcification. Duplex has been unable to fully appreciate this degree of disease. Her carotid disease is asymptomatic. Lesion isn't great for stenting (severe circumferential calcification) and ROM of neck isn't fantastic given some fusion of neck. Discussed with patient. Given this, along with comorbidities, advise continued medical management. Continue daily 81 mg aspirin for vasculopathy. Continue statin with Lipitor 40mg for hyperlipidemia. RTC in [address] [place] [address] Austin with a carotid duplex completed prior to visit at [facility]. LAINEY Dolan [facility] documented in this encounter Plan of Treatment Upcoming Encounters Date Type Department Care Team (Susan Contact Info) Description 09/07/2024 4:00 PM EST Office Visit Nephrology, [facility] [address] [place] [address] Mirella Hernandez MD [address] [place], [place] [address] 12/14/2024 10:30 AM EDT Office Visit Family Practice, [place] [address] [facility], [place] [id number] Renee Meeks DO [address] [facility], [place] [address] 01/19/2025 1:00 PM EDT Nurse Only Ancillary Department, [place] [address] [facility], [place] [address] [place], Nurse Annual Wellness [address] [place] [place] [facility] [place] [address] Scheduled Orders Name Type Priority Associated Diagnoses Orde r Schedule VASC DUPLEX CAROTID BILAT Medical Imaging Routine Carotid stenosis, non-symptomatic, bilateral Dyslipidemia, goal LDL below 70 Ordered: 06/23/2024 Health Maintenance Due Date Last Done Comments COVID-19 Vaccine ( season) 2024 07/05/2023, 03/16/2022, 08/04/2021, Additional history exists Adult Wellness Visit 01/12/2025 01/13/2024, 01/11/20 23 Depression Monitoring 01/12/2025 01/13/2024 GFR 06/01/2025 06/01/2024, 08/26, 07/22/2023, Additional history exists TSH 06/01/2025 06/01/2024, 06/27, 08/23/2022, Additional history exists Albumin/Creatinine Ratio 08/23/2025 08/23/2022 DTap/Tdap Vaccines (2 - Td or Tdap) 06/07/2026 06/07/2016, 04/25/2000 DXA Scan 07/02/2030 07/02/2023, 07/02/2023 Pneumococcal Vaccine: 65+ Years Completed 07/09/2019, 11/18/2014 Zoster Vaccines Completed 06/18/2022, 10/02/2021 Influenza Vaccine (FLU shot) Completed 02/2024, 07/05/2023, 07/05/2023, Additional history exists HPV (Gardasil) Vaccine Aged Out No lo nger eligible based on patient's age to complete this topic Hepatitis B Vaccine Aged Out No longe r eligible based on patient's age to complete this topic MENINGOCOCCAL (MENACTRA/MENVEO) Aged Out No longer eligible based on patient's age to complete this topic documented as of this encounter Medical Devices Implanted Type Area Rubber Goods Repairer Device Identifier Shelf Expiration Date Model / Serial / Lot Lens Intraoc 23.5 - [id number] - [id number] Implanted:Qty: 1 on 11/05/2019 by Kurtis Mcintosh MD at [facility] Right: Eye [employer] 05/25/2024 [id number] / [id number] / [id number] Lens Intraoc 23.0 - [id number] - [id number] Implanted:Qty: 1 on 11/16/2019 by Kurtis Mcintosh MD at OR [facility] Left: Eye [employer] 01/24/2024 [id number] / [id number] / [id number] documented as of this encounter Visit Diagnoses Diagnosis Carotid stenosis, non-symptomatic, bilateral- Primary Dyslipidemia, goal LDL below 70 Other and unspecified hyperlipidemia documented in this encounter Care Teams Director Family Relationship Specialty Start Date End Date Renee Meeks DO [address] [place] [address] PCP - General Family Medicine 06/07/16 documented as of this encounter
--- OUTSIDE RECORDS SUMMARY | 2024-08-07 07:41 | External Medical Summary | Summary of Care ---
Author Name Unknown Organization [facility] Address [address] [place] [address] Phone [phone] Care Team Providers Care Hay Sorter Name Role Phone JesRenee parker Treva SAAB Primary Care Provider [phone] Reason for Visit * Reason Comments Outpatient Testing Encounter Details Date Type Department Care Team (Late st Contact Info) Description 08/04/2024 11:50 AM EST Laboratory Laboratory, [facility] [address] [place] [id number] [place], Laboratory [address] [place] [address] Screening for deficiency anemia Allergies No known active allergiesdocumented as of this encounter (statuses as of 08/04/2024) Medications fluticasone (FLONASE) 50 MCG/ACT nasal sprayIndications: Ear pain, bilateral,Nasal sinus congestion Administer 2 Sprays into each nostril daily. 1 Inhaler 5 7 Active EQ ASPIRIN ADULT LOW DOSE 81 MG TBECIndications:I schemic chest pain (HCC),Abnormal nuclear stress test TAKE ONE TABLET BY MOUTH ONCE DAILY 90 Tab 3 8 Active Vitamin E 1000 UNIT Oral Capsule Take 1 Capsule by mouth in the morning. 1 Cap 8 Active traMADol (ULTRAM) 50 MG TabletIndications :Chronic right shoulder pain TAKE 1 TABLET BY MOUTH EVERY 6 HOURS NEEDED FOR MILD PAIN 30 Tab 9 Active senna-docusate (SENNA S) 8.6-50 MG per tabletIndications :Constipation, unspecified constipation type Take 1 Tab by mouth 2 times a day. 60 Tab 3 0 Active Ubiquinol 100 MG Oral Capsule Take 1 Tablet by mouth in the morning. Active Hydrocortisone (Perianal) 2.5 % External Cream (Anusol-HC)Indica tions:Hemorrhoids , external without complications Administer into the rectum 2 times a day. 28 g 3 2 Active Vitamin D3 10 MCG (400 UNIT) Oral Capsule Take 1 Capsule by mouth in the morning. Active Metoprolol Succinate ER 25 MG Oral Tablet Extended Release 24 Hour (toPROL XL)Indications:Es sential hypertension TAKE 1 TABLET BY MOUTH DAILY 90 Tablet 3 07/13/2024 3:13 PM EST 4 025 Active Omeprazole 20 MG Oral Capsule Delayed Release (PriLOSEC) TAKE ONE CAPSULE BY MOUTH EVERY DAY 30 MINUTES BEFORE MORNING AND EVENING MEALS 200 Capsule 3 05/14/2024 9:02 AM EDT 4 025 Active Furosemide 20 MG Oral Tablet (Lasix)Indication s:HTN, goal below 130/80,Chronic diastolic congestive heart failure (HCC) TAKE 1 TABLET BY MOUTH ONCE DAILY 90 Tablet 3 08/04/2024 7:18 AM EST 4 025 Active Losartan Potassium 100 MG Oral Tablet (Cozaar)Indicatio ns:Essential hypertension TAKE ONE TABLET BY MOUTH EVERY DAY 100 Tablet 3 06/02/2024 12:56 PM EDT 4 Active Atorvastatin Calcium 40 MG Oral Tablet (Lipitor)Indicati ons:Abnormal nuclear stress test TAKE ONE TABLET BY MOUTH EVERY DAY 100 Tablet 2 06/06/2024 9:33 AM EDT 4 025 Active Escitalopram Oxalate 10 MG Oral Tablet (Lexapro)Indicati ons:Dysthymia TAKE ONE TABLET BY MOUTH EVERY DAY 100 Tablet 3 06/11/2024 3:05 PM EDT 4 Active Additional Information Patient not taking.Reported on 06/01/2024 Biotin 5000 MCG Oral Tablet Chewable Take 2 Tablets by mouth in the morning. Active hydrALAZINE HCl 25 MG Oral Tablet (Apresoline) Take 1 Tablet by mouth in the morning and 1 Tablet at noon and 1 Tablet before bedtime. 270 Tablet 3 05/15/2024 5:24 PM EDT 4 Active Levothyroxine Sodium 25 MCG Oral Tablet (Levoxyl) TAKE 1 TABLET BY MOUTH DAILY AT LEAST 30 MINUTES PRIOR TO FIRST MEAL OF THE DAY OR OTHER MEDICATIONS 100 Tablet 1 05/25/2024 6:24 PM EDT 4 Active amLODIPine Besylate 2.5 MG Oral Tablet (Norvasc)Indicati ons:HTN, goal below 140/90 Take 1 Tablet by mouth in the morning. 90 Tablet 3 06/02/2024 12:56 PM EDT 4 Active documented as of this encounter (statuses as of 08/04/2024) Active Problems Problem Noted Date Diagnosed Date Hypertensive heart disease w ith chronic diastolic congestive heart failure 11/04/2023 Hypothyroidism due to medication 05/13/2023 Chronic diastolic congestive heart failure 11/13 PVC (premature ventricular contraction) 11/14/19 23 Major depressive disorder, recurrent, unspecifie d 07/09/2019 Carotid stenosis, non-symptomatic, bilateral 12/2017 Coronary artery disease invo lving [place] coronary artery of [place] heart without angina pectoris 07/11/2016 Dyslipidemia, goal LDL below 70 07/11/2016 Gastroesophageal reflux disease without esophagi tis HTN, goal below 140/90 documented as of this encounter (statuses as of 08/04/2024) Resolved Problems Problem Noted Date Diagnosed Date Resolved Date Episode of recurrent major d epressive disorder 05/13/2023 11/04/2023 Asymptomatic stenosis of right carotid artery 06/13/20 18 07/07/2019 Overview (07/07/2019): history Atherosclerosis of right carotid artery 05/01/2018 06/13/2018 Kidney disease, chronic, sta ge III (GFR 30-59 ml/min) 12/03/2017 03/13/2018 Overview: Per CKD protocol #1 OA (osteoarthritis) 07/11/2016 12/13/19 18 Abnormal nuclear stress test 06/12/2016 07/11/2016 Depression 10/19/2019 Overview (10/19/2019): history documented as of this encounter (statuses as of 08/04/2024) Immunizations Name Administration Dates Next Due COVID-19 mRNA, LNP-s, No Pre serve, 2-Dose Series (Moderna) 03/16/2022,08/04/2021,10/21/2020,09/22 COVID-19, MRNA-LNP, PF, 50 M CG/0.5 mL, 12 YRS AND ABOVE, IM (MODERNA-Spikevax) [...] 06/01/2024 Does the household have a re gular source of income? (Household - for ages [...] ages 0-17 years) Not on file 06/01/2024 Comments No Sex and Gender Information Value Date Recorded Sex Assigned at Female 12/29/2018 12:08 PM EDT Legal Sex Female 5:55 AM EST Gender Identity Female 12/29/2018 12:08 PM EDT Sexual Orientation Straight 12/29/2018 12 :08 PM EDT documented as of this encounter Plan of Treatment Upcoming Encounters Date Type Department Care Team (Late st Contact Info) Description 09/07/2024 4:00 PM EST Office Visit Nephrology, [address] [place] [address] Mirella Hernandez MD [address] [place] [address] 12/14/2024 10:30 AM EDT Office Visit Family Practice, [address] [place] [address] Renee Meeks DO [address] [place] [address] 01/19/2025 1:00 PM EDT Nurse Only Ancillary Department, [place] [address] [place] [address] [place], Nurse Annual Wellness [address] [facility] [place] [address] Pending Results Name Type Priority Associated Diagnoses Date /Time CBC Lab Routine Screening for deficiency anemia 08/04/2024 11:50 AM EST IRON SCREEN, INCLUDING TIBC Lab Routine Screening for deficiency anemia 08/04/2024 11:50 AM EST Health Maintenance Due Date Last Done Comments [...] this encounter Medical Devices Implanted Type Area Automotive Title Clerk Device Identifier Shelf Expiration Date Model / Serial / Lot Lens Intraoc 23.5 - [id number] - [id number] Implanted:Qty: 1 on 11/05/2019 by Kurtis Mcintosh MD at OR [facility] Right: Eye [employer] 05/25/2024 [id number] / [id number] / [id number] Lens Intraoc 23.0 - [id number] - [id number] Implanted:Qty: 1 on 11/16/2019 by Kurtis Mcintosh MD at OR [facility] Left: Eye [employer]OMB 01/24/2024 [id number] / [id number] / [id number] documented as of this encounter Visit Diagnoses Diagnosis Screening for deficiency anemia Screening for other and unspecified deficiency anemia documented in this encounter Care Teams Hay Sorter Relationship Specialty Start Date End Date Renee Meeks DO [address] [place] [address] PCP - General Family Medicine 06/07/16 documented as of this encounter
--- OUTSIDE RECORDS SUMMARY | 2024-08-07 07:41 | External Medical Summary ---
Author Name Unknown Address Unknown Organization K01[place] [place] [facility] [address] [facility] [facility] [address] [facility] [address] Laboratory Report Ordering Provider Test Date Status LUTHER TAN 08/04/2024 11:50:09 Final Observation Date Value Abnormality Reference (Units ) Status WBC, Total 08/04/2024 11:50:09 8.61 4.00-10.80 (K/uL) Final RBC 08/04/2024 11:50:09 3.36 3.85-5.15 (M/uL) Final Hemoglobin 08/04/2024 11:50:09 7.2 Below low normal 12.0-15.3 (g/dL) Final HCT 08/04/2024 11:50:09 25.4 Below low normal 36.0-45.2 (%) Final MCV 08/04/2024 11:50:09 75.6 81.5-97.5 (fL) Final MCH 08/04/2024 11:50:09 21.4 27.0-34.0 (pg) Final MCHC 08/04/2024 11:50:09 28.3 32.0-36.0 (g/dL) Final RDW 08/04/2024 11:50:09 16.8 11.5-15.5 (%) Final Platelets 08/04/2024 11:50:09 471 Above high normal 140-400 (K/uL) Final MPV 08/04/2024 11:50:09 9.4 6.6-11.1 (fL) Final Nucleated erythrocytes/100 leukocytes [Ratio] in Blood by Automated count 08/04/2024 11:50:09 0 <=0 (/100 WBCs) Final Performing Location [facility] [place] [address] [place] [address]
--- OUTSIDE RECORDS SUMMARY | 2024-08-07 07:41 | External Medical Summary | Summary of Care ---
Author Name Unknown Organization [facility] Address [address] [place] [address] Phone [phone] Care Team Providers Care Instructional Coach Name Role Phone Renee Meeks DO Primary Care Provider [phone] Reason for Visit * Reason Comments NEW PATIENT Left 1st [facility] * Evaluate & Treat - Unlimited Visits (Within 10 days (routine)) - Authorized Specialty Diagnoses / Procedures Referred By Jim arriaga Referred To Contact Orthopaedic Surgery / Orthopedics Diagnoses Thumb pain, left Renee Meeks DO [address] [place] [address] Referral ID Status Reason Start Date Expiration Date Visits Requested Visits Authorized [id number] Authorized Specialty Services Required 06/01/2024 [id number] Encounter Details Date Type Department Care Team (Late st Contact Info) Description 06/10/2024 9:00 AM EDT Office Visit Orthopaedics [facility] [address] [facility] [place] [address] Maninder Nogueira DO [address] [facility] [address] CMC arthritis* Allergies No known active allergiesdocumented as of this encounter (statuses as of 06/10/2024) Medications Medication Sig Dispensed Refills Start Date [...] the morning. 90 Tablet 3 06/01/2024 Active Hospital, Clinic, or Other Facility Administered Medication Ordered Dose Route Frequency Start Date End Date Status lidocaine 1% 1 mL - triamcinolone acetonide 40 mg/mL 1 mL inj 2 mLIndications:CMC arthritis 2 mL IJ ONCE 06/10/2024 06/10/20 24 Ended documented as of this encounter (statuses as of 06/10/2024) Active Problems Problem Noted Date Diagnosed Date Hypertensive heart disease w ith chronic diastolic congestive heart failure 11/04/2023 Hypothyroidism due to medication 05/13/2023 Chronic diastolic congestive heart failure 11/13 PVC (premature ventricular contraction) 11/14/19 23 Major depressive disorder, recurrent, unspecifie d 07/09/2019 Carotid stenosis, non-symptomatic, bilateral 12/2017 Coronary artery disease invo lving [place] coronary artery of [place] heart without angina pectoris 07/11/2016 Dyslipidemia, goal LDL below 70 07/11/2016 Gastroesophageal reflux disease without esophagi tis HTN, goal below 140/90 documented as of this encounter (statuses as of 06/10/2024) Resolved Problems Problem Noted Date Diagnosed Date [...] as of this encounter (statuses as of 06/10/2024) Immunizations Name Administration Dates Next Due COVID-19 [...] as of this encounter Progress Notes * Maninder Nogueira, DO - 06/10/2024 9:00 AM EDT Hue Gann [id number] INJECTION and office NOTE Hue Gann is a 83 year old female who presents to [facility] for Bilateral CMC injections Injected last 01/16/2023 TODAY: She reports her right is still doing well she would only like to have her left injected. Patient Active Problem List Diagnosis Gastroesophageal reflux disease without esophagitis HTN, goal below 140/90 Coronary artery disease involving [place] coronary artery of [place] heart without angina pectoris Dyslipidemia, goal LDL below 70 Carotid stenosis, non-symptomatic, bilateral Major depressive disorder, recurrent, unspecified (HCC) Chronic diastolic congestive heart failure (HCC) PVC (premature ventricular contraction) Hypothyroidism due to medication Hypertensive heart disease with chronic diastolic congestive heart failure (HCC) Current Outpatient Medications Medication Sig Dispense Refill [...] No current facility-administered medications for this visit. PE: Minimal pain with grind test right CMC. Moderate to significant pain with grind test left CMC. Assessment and Plan: We will do injection. Please see procedure note. Follow up as needed. CMC arthritis (Primary) - POINT OF CARE US MAJOR JOINT INJECTION, ORTHO - lidocaine 1% 1 mL - triamcinolone acetonide 40 mg/mL 1 mL inj 2 mL Maninder Nogueira DO, MBA, FAAFP, RMSK [facility] Sports Loom MechanicLead Auditor Primary Care Sports Medicine Team Physician [facility] Office locations: Orthopaedics [place] [address] [address] This chart was completed in part utilizing [employer] Speech Voice Recognition Software. Grammatical errors, random word insertions, pronoun errors, and incomplete sentences are an occasional consequence of this system due to software limitations, ambient noise, and hardware issues. Any formal questions or concerns about the content, text, or information contained within the body of this dictation should be directly addressed to the provider for clarification. PROCEDURE NOTE: CMC INJECTION Laterality: Left Time out: Prior to injection, a time out was called to confirm the administration of appropriate medicine, patient name, procedure and confirm to the best of our ability and knowledge the presence of any necessary risks and benefits. Patient verbalized understanding. Ultrasound utilized to guide injection. During the procedure, the needle was visualized in plane and was advanced with continuous ultrasound guidance to the appropriate anatomical landmark as described in the procedure. Ultrasound required due to high risk for complications without ultrasound guidance (risk for neurovascular damage) and failed previous injection done without fluoroscopic or ultrasound guidance Sterile technique applied using gloves, chlorhexadine, and alcohol swabs. Ethyl chloride spray for local anesthetic. The carpal space at [facility] was injected using 1.5 inch, 25 gauge needle. Injected with 1 mL Lidocaine 1% - 1 mL Triamcinolone Acetonide 40 mg/mL >> inject 2 mL. Patient tolerated procedure with no significant bleeding or adverse reaction. Patient instructed to call or return to clinic for fever, warmth, unusual redness at injection sitefor potential infection. Patient also advised regarding post-procedural pain. Maninder Nogueira DO Sports Medicine Primary Care Orthopaedics [address] [address] documented in this encounter Nursing Notes * Ana Dorsey MED ASSIST - 06/10/2024 9:03 AM EDT New Patient Here for todays visit regarding: Hand Side: Left Injury: No Injury, Recent Imaging: X ray Prior treatment: no Goals for this appointment: dx and tx documented in this encounter Plan of Treatment Upcoming Encounters Date Type Department Care Team (Late st Contact Info) Description 06/22/2024 1:00 PM EDT Imaging Vascular Lab, [facility], [address] [address] 06/25/2024 3:00 PM EDT [facility]medicine [facility] [address] [place] [address] Tyler Rose CRNP [address] [place] [address] 09/07/2024 4:00 PM EST Office Visit Nephrology, [facility] [address] [facility] [place] [address] Mirella Hernandez MD [address] [place] [address] 12/14/2024 10:30 AM EDT Office Visit Family Practice, [place] [address], [place] [address] Renee Meeks [facility] [address] [facility] [address] 01/19/2025 1:00 PM EDT Nurse Only Ancillary Department, [place] [address] [address] [place], Nurse Annual Wellness [address] [facility] [id number] Scheduled Orders Name Type Priority Associated Diagnoses Orde r Schedule POINT OF CARE US MAJOR JOINT INJECTION, ORTHO Medical Imaging Routine CMC arthritis Ordered: 06/10/2024 Health Maintenance Due Date Last Done Comments [...] this encounter Medical Devices Implanted Type Area Mitten Stitcher Device Identifier Shelf Expiration Date Model / Serial / Lot Lens Intraoc 23.5 - [id number] - [id number] Implanted:Qty: 1 on 11/05/2019 by Kurtis Mcintosh MD at OR [facility] Right: Eye [employer] 05/25/2024 [id number] / [id number] / [id number] Lens Intraoc 23.0 - [id number] - [id number] Implanted:Qty: 1 on 11/16/2019 by Kurtis Mcintosh MD at OR [facility] Left: Eye BA[employer]OMB 01/24/2024 [id number] / [id number] / [id number] documented as of this encounter Visit Diagnoses Diagnosis CMC arthritis- Primary Unspecified arthropathy, hand documented in this encounter Administered Medications Inactive Administered Medications - up to 3 most recent administrations Medication Order MAR Action Action Date Dose Rate Site lidocaine 1% 1 mL - triamcinolone acetonide 40 mg/mL 1 mL inj 2 mL 2 mL, Injection, ONCE, On Sat06/10/24 at 1015, For 1 dose, Lidocaine 1% 1mL Triamcinolone Acetonide 40 mg/mL 1 mL (Final concentration = 20 mg/mL) REFRIGERATE and SHAKE WELL Given 06/10/2024 9:35 AM EDT 2 mL Wrist Left documented in this encounter Care Teams Instructional Coach Relationship Specialty Start Date End Date Renee Meeks DO [address] [place] [facility] [place] [address] PCP - General Family Medicine 06/07/16 documented as of this encounter
--- OUTSIDE RECORDS SUMMARY | 2024-08-07 07:41 | External Medical Summary ---
Author Name Unknown Address Unknown Organization K01:[facility] [place] [address] [place] [address] Laboratory Report Ordering Provider Test Date Status LUTHER TAN 08/04/2024 11:50:09 Final Observation Date Value Abnormality Reference (Units ) Status Iron 08/04/2024 11:50:09 20 Below low normal 33-151 (ug/dL) Final Iron-binding capacity 08/04/2024 11:50:09 474 Above high normal 250-425 (ug/dL) Final Transferrin Sat % 08/04/2024 11:50:09 4 Below low normal 15-55 (%) Final Performing Location [facility] [place] [address] [place] [address]
--- OUTSIDE RECORDS SUMMARY | 2024-08-07 07:41 | External Medical Summary | Summary of Care ---
Author Name Unknown Organization [facility] Address [address] [place] [address] Phone [phone] Care Team Providers Care Cook Larder Name Role Phone Renee Meeks DO Primary Care Provider [phone] Reason for Visit * Reason Onset Date Comments Advice 08/05/2024 Test Results 08/05/2024 Encounter Details Date Type Department Care Team (Late st Contact Info) Description 08/05/2024 Telephone Access Center, [place] [address] [facility] *DO NOT REMOVE THIS DEPARTMENT* [place] [phone] Services, Scheduling [address] [place] [address] Advice; Test Results Allergies No known active allergiesdocumented as of this encounter (statuses as of 08/05/2024) Medications fluticasone (FLONASE) 50 MCG/ACT nasal sprayIndications: [...] as of this encounter (statuses as of 08/05/2024) Active Problems Problem Noted Date Diagnosed Date Hypertensive heart disease w ith chronic diastolic congestive heart failure 11/04/2023 Hypothyroidism due to medication 05/13/2023 Chronic diastolic congestive heart failure 11/13 PVC (premature ventricular contraction) 11/14/19 23 Major depressive disorder, recurrent, unspecifie d 07/09/2019 Carotid stenosis, non-symptomatic, bilateral 12/2017 Coronary artery disease invo lving [place] coronary artery of [place] heart without angina pectoris 07/11/2016 Dyslipidemia, goal LDL below 70 07/11/2016 Gastroesophageal reflux disease without esophagi tis HTN, goal below 140/90 documented as of this encounter (statuses as of 08/05/2024) Resolved Problems Problem Noted Date Diagnosed Date [...] as of this encounter (statuses as of 08/05/2024) Immunizations Name Administration Dates Next Due COVID-19 [...] PM EDT documented as of this encounter Miscellaneous Notes * Telephone Encounter - Rohan Chen, MELISSA - 08/05/2024 11:37 AM EST Patients daughter Renetta called in concerned about patients recent lab results. Would like nephrology to review and call back with advice.[phone] documented in this encounter Plan of Treatment Upcoming Encounters Date Type Department Care Team (Late st Contact Info) Description 09/07/2024 4:00 PM EST Office Visit Nephrology, [facility] [address] [place] [address] Mirella Hernandez MD [address] [place] [address] 12/14/2024 10:30 AM EDT Office Visit Family Practice, [facility] [address] [facility] [place] [address] Renee Meeks DO [address] [facility] [place] [address] 01/19/2025 1:00 PM EDT Nurse Only [facility], [place] [facility] [address] [facility] [place] [address] [place], Nurse Annual Wellness [address] [address] Health Maintenance Due Date Last Done Comments [...] this encounter Medical Devices Implanted Type Area Qualitative Executive Researcher Device Identifier Shelf Expiration Date Model / Serial / Lot Lens Intraoc 23.5 - [id number] - [id number] Implanted:Qty: 1 on 11/05/2019 by Kurtis Mcintosh MD at OR [facility] Right: Eye [employer] 05/25/2024 [id number] / [id number] / [id number] Lens Intraoc 23.0 - [id number] - [id number] Implanted:Qty: 1 on 11/16/2019 by Kurtis Mcintosh MD at OR [facility] Left: Eye [employer]OM[employer] 01/24/2024 [id number] / [id number] / [id number] documented as of this encounter Care Teams Cook Larder Relationship Specialty Start Date End Date Renee Meeks DO [address] [place] [address] PCP - General Family Medicine 06/07/16 documented as of this encounter
--- OUTSIDE RECORDS SUMMARY | 2024-08-07 07:42 | External Medical Summary ---
Author Name Unknown Address Unknown Organization K01[place] [place] [address] [facility] [place] [address] Laboratory Report Ordering Provider Test Date Status IRVIN TANNasra 06/01/2024 13:56:38 Final Observation Date Value Abnormality Reference (Units ) Status Color of Urine by Auto 06/01/2024 13:56:38 Colorless Colorless, Light Yellow, Yellow, Dark Yellow Final Clarity, Urine 06/01/2024 13:56:38 Clear Clear Final Glucose [Mass/volume] in Urine by Automated test strip 06/01/2024 13:56:38 Negative Negative (mg/dL) Final Bilirubin.total [Presence] in Urine by Automated test strip 06/01/2024 13:56:38 Negative Negative Final Ketones [Mass/volume] in Urine by Automated test strip 06/01/2024 13:56:38 Negative Negative (mg/dL) Final Specific gravity, Urine 06/01/2024 13:56:38 1.006 1.003-1.030 Final Hemoglobin [Presence] in Urine by Automated test strip 06/01/2024 13:56:38 Negative Negative Final pH, Urine 06/01/2024 13:56:38 7.0 5.0-7.5 (Units) Final Protein [Mass/volume] in Urine by Automated test strip 06/01/2024 13:56:38 Negative Negative (mg/dL) Final Urobilinogen [Mass/volume] in Urine by Automated test strip 06/01/2024 13:56:38 Normal Normal (mg/dL) Final Nitrite [Presence] in Urine by Automated test strip 06/01/2024 13:56:38 Negative Negative Final Leukocyte esterase [Presence] in Urine by Automated test strip 06/01/2024 13:56:38 Negative Negative Final RBC, Urine 06/01/2024 13:56:38 0-2 0-2 (/HPF) Final WBC, Urine 06/01/2024 13:56:38 0-2 0-2 (/HPF) Final Bacteria [#/area] in Urine sediment by Microscopy high power field 06/01/2024 13:56:38 0-25 0-25 (/HPF) Final CULTURE, URINE - ISINGER 06/01/2024 13:56:38 Final Culture not indicated by uri nalysis results\[id number]\ Performing Location [facility] [place] [facility] [address] [facility] [address]
--- OUTSIDE RECORDS SUMMARY | 2024-08-07 07:42 | External Medical Summary | Summary of Care ---
Author Name Unknown Organization [facility] Address [address] [place] [address] Phone [phone] Care Team Providers Care Realtime Captioner Name Role Phone Renee Meeks Primary Care Provider Encounter Details Date Type Department Care Team (Late st Contact Info) Description 06/03/2024 Patient Reported Data Patient Survey Ortho OBERD Allergies No known active allergiesdocumented as of this encounter (statuses as of 06/03/2024) Medications Medication Sig Dispensed Refills Start Date [...] as of this encounter (statuses as of 06/03/2024) Active Problems Problem Noted Date Diagnosed Date Hypertensive heart disease w ith chronic diastolic congestive heart failure 11/04/2023 Hypothyroidism due to medication 05/13/2023 Chronic diastolic congestive heart failure 11/13 PVC (premature ventricular contraction) 11/14/19 23 Major depressive disorder, recurrent, unspecifie d 07/09/2019 Carotid stenosis, non-symptomatic, bilateral 12/2017 Coronary artery disease 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 07/11/2016 Dyslipidemia, goal LDL below 70 07/11/2016 Gastroesophageal reflux disease without esophagi tis HTN, goal below 140/90 documented as of this encounter (statuses as of 06/03/2024) Resolved Problems Problem Noted Date Diagnosed Date [...] as of this encounter (statuses as of 06/03/2024) Immunizations Name Administration Dates Next Due COVID-19 [...] on file documented as of this encounter Plan of Treatment Upcoming Encounters Date Type Department Care Team (Late st Contact Info) Description 06/10/2024 9:00 AM EDT Office Visit Orthopaedics [facility] [address] [facility] [place] [address] Maninder Nogueira, [address] [facility] [place] [address] 06/22/2024 1:00 PM EDT Imaging Vascular Lab, [facility] 2nd [facility] [address] [facility] [place] [address] 06/25/2024 3:00 PM EDT [facility] [address] [place] [address] Tyler Rose CRNP [address] [place] [address] 09/07/2024 4:00 PM EST Office [facility] [address] [facility] [place] [address] Mirella Hernandez MD [address] [facility] [place] [id number] 12/14/2024 10:30 AM EDT Office Visit Family Practice, [place] [address] [place] [facility] [id number] Renee Meeks DO [address] [place] [facility] [place] [address] 01/19/2025 1:00 PM EDT Nurse Only Ancillary Department, [place] [address] [place] [facility] [address] [place], Nurse Annual [facility] [address] [place] [address] Health Maintenance Due Date Last Done Comments [...] this encounter Medical Devices Implanted Type Area Water Pump Installer Device Identifier Shelf Expiration Date Model / Serial / Lot Lens Intraoc 23.5 - [id number] - [id number] Implanted:Qty: 1 on 11/05/2019 by Kurtis Mcintosh MD at OR [facility] Right: Eye [employer]CH [employer] LOMB 05/25/2024 [id number] / [id number] / [id number] Lens Intraoc 23.0 - [id number] - [id number] Implanted:Qty: 1 on 11/16/2019 by Kurtis Mcintosh MD at OR [facility] Left: Eye BAUSCH [employer] LOMB 01/24/2024 [id number] / [id number] / [id number] documented as of this encounter Care Teams Realtime Captioner Relationship Specialty Start Date End Date Renee Meeks DO [address] [place] [address] PCP - General Family Medicine 06/07/16 documented as of this encounter
--- OUTSIDE RECORDS SUMMARY | 2024-08-07 07:42 | External Medical Summary | Summary of Care ---
Author Name Unknown Organization [facility] Address [address] [place] [address] Phone [phone] Care Team Providers Care Press Operator Meat Name Role Phone Renee Meeks DO Primary Care Provider + [phone] Reason for Visit * Reason Comments NEW PATIENT [place] [facility] [facility] [place] Evaluate & Treat - Unlimited Visits (Within 10 days (routine)) - Authorized Specialty Diagnoses / Procedures Referred By Jim arriaga Referred To Contact Orthopaedic Surgery / Orthopedics Diagnoses Thumb pain, left Renee Meeks DO [address] [place] [address] Referral ID Status Reason Start Date Expiration Date Visits Requested Visits Authorized [id number] Authorized Specialty Services Required 06/01/2024 [id number] Encounter Details Date Type Department Care Team (Late st Contact Info) Description 06/10/2024 9:00 AM EDT Office Visit Orthopaedics [facility] [address] [facility] [place] [address] Maninder Nogueira DO [address] [facility] [address] [facility] arthritis* Allergies No known active allergiesdocumented [...] bilateral 12/2017 Coronary artery disease invo lving lummi coronary artery of lummi heart without angina pectoris 07/11/2016 Dyslipidemia, goal [...] - 06/10/2024 9:00 AM EDT Hue Gann [id number] INJECTION and office NOTE Hue Gann is a 83 year old female who presents to [facility] for Bilateral [facility] injections Injected last 01/16/2023 TODAY: She reports her right is still doing well she would only like to have her left injected. Patient Active Problem List Diagnosis Gastroesophageal reflux disease without esophagitis HTN, goal below 140/90 Coronary artery disease involving lummi coronary artery of lummi heart without angina pectoris Dyslipidemia, goal LDL [...] mL Maninder Nogueira DO, MBA, FAAFP, RMSK [facility] Sports Punch Press OperatorCommunications And Signals Supervisor Primary Care Sports Medicine Team Physician Formerly [facility] Office locations: Orthopaedics [place] [address] [address] This chart was completed in part utilizing [employer] Speech Voice Recognition Software. Grammatical errors, random [...] for local anesthetic. The carpal space at [facility] [place] injected using 1.5 inch, 25 gauge [...] Nogueira DO Sports Medicine Primary Care Orthopaedics [address] [address] documented in this encounter Nursing Notes * [...] 06/22/2024 1:00 PM EDT Imaging Vascular Lab, [facility] 2nd [facility], [address] [address] 06/25/2024 3:00 PM EDT [facility]medicine [facility] [address] [place] [address] Tyler Rose CRNP [address] [place] [facility] [place] [address] 09/07/2024 4:00 PM EST Office Visit Nephrology, [facility] [address] [facility] [place] [address] Mirella Hernandez MD [address] [address] 12/14/2024 10:30 AM EDT Office Visit Family Practice, [place] [address] [facility], [place] [address] Renee Meeks [facility] [address] [facility] [address] 01/19/2025 1:00 PM EDT Nurse Only Ancillary Department, [place] [address] [facility] [address] [place], Nurse [facility] [address] [facility] [id number] Scheduled Orders Name Type Priority Associated Diagnoses [...] this encounter Medical Devices Implanted Type Area Edge Grinder Machine Device Identifier Shelf Expiration Date Model / Serial / Lot Lens Intraoc 23.5 - [id number] - [id number] Implanted:Qty: 1 on 11/05/2019 by Kurtis Mcintosh MD at OR [facility] Right: Eye BAUSCH [employer] LOMB 05/25/2024 [id number] / [id number] / [id number] Lens Intraoc 23.0 - [id number] - [id number] Implanted:Qty: 1 on 11/16/2019 by Kurtis Mcintosh MD at OR [facility] Left: Eye BAUSCH [employer] LOMB 01/24/2024 [id number] / [id number] / [id number] documented as of this encounter Visit Diagnoses [...] Left documented in this encounter Care Teams Press Operator Meat Relationship Specialty Start Date End Date Renee Meeks DO [address] [place] [address] PCP - General Family Medicine 06/07/16 documented as of this encounter
--- OUTSIDE RECORDS SUMMARY | 2024-08-07 07:42 | External Medical Summary | Summary of Care ---
Author Name Unknown Organization [facility] Address [address] [place] [address] Phone [phone] Care Team Providers Care Pta Name Role Phone RajinderRenee carter Treva SAAB Primary Care Provider + [phone] Reason for Visit * Reason Comments Outpatient Testing Encounter Details Date Type Department Care Team (Late st Contact Info) Description 06/01/2024 11:50 AM EDT Laboratory Laboratory, [place] [address] [place] [address] [place], Laboratory [address] [place], [place] [id number] [employer] Other*[id number]; Stage 3b chronic kidney disease (HCC); Encounter for long-term (current) use of medications; Urine frequency Allergies No known active allergiesdocumented as of this encounter (statuses as of 06/01/2024) Medications Medication Sig Dispensed Refills Start Date [...] EVERY DAY 100 Tablet 3 11/18/2023 Active amLODIPine Besylate 2.5 MG Oral Tablet (Norvasc) Take 1 Tablet by mouth in the morning. 90 Tablet 3 11/20/2023 Active Atorvastatin Calcium 40 MG Oral Tablet [...] as of this encounter (statuses as of 06/01/2024) Active Problems Problem Noted Date Diagnosed Date Hypertensive heart disease w ith chronic diastolic congestive heart failure 11/04/2023 Hypothyroidism due to medication 05/13/2023 Chronic diastolic congestive heart failure 11/13 PVC (premature ventricular contraction) 11/14/19 23 Major depressive disorder, recurrent, unspecifie d 07/09/2019 Carotid stenosis, non-symptomatic, bilateral 12/2017 Coronary artery disease invo lving [place] coronary artery of [place] heart without angina pectoris 07/11/2016 Dyslipidemia, goal LDL below 70 07/11/2016 Gastroesophageal reflux disease without esophagi tis HTN, goal below 140/90 documented as of this encounter (statuses as of 06/01/2024) Resolved Problems Problem Noted Date Diagnosed Date [...] as of this encounter (statuses as of 06/01/2024) Immunizations Name Administration Dates Next Due COVID-19 [...] the money to buy more. Never true 01/11/20 23 Within the past 12 months, t he food you bought just didn't last and you didn't have money to get more. Never true 01/10/2023 Utilities Answer Date Recorded Do you have trouble paying y our heating, water, or electric bill? (Adult - for ages 18 years and over) Not on file 02/11/2024 Is your family able to pay t he heat, water, or electric bill? (Household - for ages 0-17 years) Not on file 02/11/2024 Does your family have access to good internet? (Household - for ages 0-17 years) Not on file 02/11/2024 Social Connections Answer Date Recorded How often do you feel lonely or isolated from those around you? (Adult - for ages 18 years and over) Not on file 02/11/2024 Sex and Gender Information Value Date Recorded [...] 06/10/2024 9:00 AM EDT Office Visit Orthopaedics [facility] [address] [facility] [place] [address] Maninder Nogueira DO [address] [facility] [place] [address] 06/22/2024 1:00 PM EDT Imaging Vascular Lab, [facility] 2nd [facility] [address] [facility] [place] [address] 06/25/2024 3:00 PM EDT Telemedicine Vascular Surg [facility] [address] [place] [address] Tyler Rose CRNP [address] [place] [address] 09/07/2024 4:00 PM EST Office Visit Nephrology, [place] [address] [place] [address] Mirella Hernandez MD [address] [place] [address] 12/14/2024 10:30 AM EDT Office Visit [address], [place] [address] Renee Meeks, DO [address] [facility], [place] [address] 01/19/2025 1:00 PM EDT Nurse Only Ancillary Department, [place] [address] [facility] [address] [place], Nurse Annual Wellness [address] [facility], [place] [id number] Pending Results Name Type Priority Associated Diagnoses Date /Time MYCODE SUBSEQUENT ADULT Lab Routine MyCode [employer] Other*[id number] 06/01/2024 11:54 AM EDT 25-HYDROXY VITAMIN D Lab Routine Stage 3b chronic kidney disease (HCC) 06/01/2024 11:54 AM EDT BASIC METABOLIC PANEL Lab Routine Stage 3b chronic kidney disease (HCC) 06/01/2024 11:54 AM EDT PTH Lab Routine Stage 3b chronic kidney disease (HCC) 06/01/2024 11:54 AM EDT TSH WITH FREE T4 IF INDICATED Lab Routine Encounter for long-term (current) use of medications 06/01/2024 11:54 AM EDT MYCODE SST1 Lab Routine [employer] Other*[id number] 06/01/2024 11:54 AM EDT MYCODE SST2 Lab Routine [employer] Other*[id number] 06/01/2024 11:54 AM EDT Scheduled Orders Name Type Priority Associated Diagnoses Orde r Schedule URINALYSIS, REFLEX TO CULTUR E (CUP ONLY) Lab Routine Urine frequency Ordered: 06/01/2024 URINALYSIS, REFLEX TO CULTURE Lab Routine Urine frequency Ordered: 06/01/2024 Health Maintenance Due Date Last Done Comments COVID-19 Vaccine ( season) 2024 07/05/2023, 03/16/2022, 08/04/2021, Additional history exists Postponed from 04/26/2024 (Patient Declined After Education) TSH 07/22/2024 07/22/2023, 07/27, 10/02/2021, Additional history exists GFR 09/06/2024 09/06/2023, 06/27, 05/13/2023, Additional history exists Adult Wellness Visit 01/12/2025 01/13/2024, 01/11/20 Depression Monitoring 01/12/2025 01/13/2024 Albumin/Creatinine Ratio 08/23/2025 08/23/2022 DTap/Tdap Vaccines (2 - Td or Tdap) 06/07/2026 06/07/2016, 04/25/2000 DXA Scan 07/02/2030 07/02/2023, 07/02/2023 Pneumococcal Vaccine: 65+ Years Completed 07/09/2019, 11/18/2014 Zoster Vaccines Completed 06/18/2022, 10/02/2021 Influenza Vaccine (FLU shot) Completed 06/01/2024, 07/05/2023, 07/05/2023, Additional history exists HPV (Gardasil) [...] this encounter Medical Devices Implanted Type Area Domain Architect Device Identifier Shelf Expiration Date Model / Serial / Lot Lens Intraoc 23.5 - [id number] - [id number] Implanted:Qty: 1 on 11/05/2019 by Kurtis Mcintosh MD at OR [facility] Right: Eye BAUSCH [employer] LOMB 05/25/2024 [id number] / [id number] / [id number] Lens Intraoc 23.0 - [id number] - [id number] Implanted:Qty: 1 on 11/16/2019 by Kurtis Mcintosh MD at OR [facility] Left: Eye BAUSCH & LOMB 01/24/2024 [id number] / [id number] / [id number] documented as of this encounter Visit Diagnoses Diagnosis My[employer] Other*[id number] Stage 3b chronic kidney disease (HCC) Encounter for long-term (current) use of medications Encounter for long-term (current) use of other medications Urine frequency Urinary frequency documented in this encounter Care Teams Pta Relationship Specialty Start Date End Date Renee Meeks DO [address] [place] [address] PCP - General Family Medicine 06/07/16 documented as of this encounter
--- OUTSIDE RECORDS SUMMARY | 2024-08-07 07:42 | External Medical Summary | Summary of Care ---
Author Name Unknown Organization [facility] Address [address] [place] [address] Phone [phone] Care Team Providers Care Recycling Assistant Name Role Phone RajinderRenee carter Treva SAAB Primary Care Provider + [phone] Reason for Visit * Reason Comments Outpatient Testing Encounter Details Date Type Department Care Team (Late st Contact Info) Description 06/01/2024 11:50 AM EDT Laboratory Laboratory, [place] [address] [place] [address] [place], Laboratory [address] [place], [place] [id number] [employer] Other*[id number]; Stage 3b chronic kidney disease (HCC); Encounter [...] bilateral 12/2017 Coronary artery disease invo lving [place] coronary artery of [place] heart without angina pectoris 07/11/2016 Dyslipidemia, goal [...] 06/10/2024 9:00 AM EDT Office Visit Orthopaedics [facility] [address] [facility] [place] [address] Maninder Nogueira DO [address] [facility] [place] [address] 06/22/2024 1:00 PM EDT Imaging Vascular Lab, [facility] 2nd [facility] [address] [facility] [place] [address] 06/25/2024 3:00 PM EDT Telemedicine Vascular Surg [facility] [address] [place] [address] Tyler Rose CRNP [address] [place] [address] 09/07/2024 4:00 PM EST Office Visit Nephrology, [place] [address] [place] [address] Mirella Hernandez MD [address] [place] [address] 12/14/2024 10:30 AM EDT Office Visit [address], [place] [address] Renee Meeks, DO [address] [facility], [place] [address] 01/19/2025 1:00 PM EDT Nurse Only Ancillary Department, [place] [address] [facility] [address] [place], Nurse Annual Wellness [address] [facility], [place] [phone] Pending Results Name Type Priority Associated Diagnoses Date /Time MYCODE SUBSEQUENT ADULT Lab Routine MyCode [employer] Other*[id number] 06/01/2024 11:54 AM EDT 25-HYDROXY VITAMIN D [...] EDT MYCODE SST1 Lab Routine [employer] Other*[id number] 06/01/2024 11:54 AM EDT MYCODE SST2 Lab Routine [employer] Other*[id number] 06/01/2024 11:54 AM EDT Scheduled Orders Name [...] this encounter Medical Devices Implanted Type Area Cnc Mill Operator Device Identifier Shelf Expiration Date Model / Serial / Lot Lens Intraoc 23.5 - [id number] - [id number] Implanted:Qty: 1 on 11/05/2019 by Kurtis Mcintosh MD at OR [facility] Right: Eye BAUSCH [employer] LOMB 05/25/2024 [id number] / [id number] / [id number] Lens Intraoc 23.0 - [id number] - [id number] Implanted:Qty: 1 on 11/16/2019 by Kurtis Mcintosh MD at OR [facility] Left: Eye BAUSCH & LOMB 01/24/2024 [id number] / [id number] / [id number] documented as of this encounter Visit Diagnoses Diagnosis My[employer] Other*[id number] Stage 3b chronic kidney disease (HCC) Encounter for long-term (current) use of medications Encounter for long-term (current) use of other medications Urine frequency Urinary frequency documented in this encounter Care Teams Recycling Assistant Relationship Specialty Start Date End Date Renee Meeks DO [address] [place] [address] PCP - General Family Medicine 06/07/16 documented as of this encounter
--- OUTSIDE RECORDS SUMMARY | 2024-08-07 07:42 | External Medical Summary ---
Author Name Unknown Address Unknown Organization K01:LABORATORY [facility] - [address] [place] [address] Laboratory Report Ordering Provider Test Date Status SHELL BRAUN 06/01/2024 11:54:53 Final Observation Date Value Abnormality Reference (Units ) Status Parathyrin.intact [Mass/volume] in Serum or Plasma 06/01/2024 11:54:53 53 15-65 (pg/mL) Final Performing Location LABORATORY [facility] - [address] [place] [address]
--- OUTSIDE RECORDS SUMMARY | 2024-08-07 07:42 | External Medical Summary | Summary of Care ---
Author Name Unknown Organization [facility] Address [address] [place] [address] Phone [phone] Care Team Providers Care Director Of Housing Name Role Phone Britney Sloan DO Primary Care Provider [phone] Reason for Visit * Reason Comments Medication Refill Encounter Details Date Type Department Care Team (Late st Contact Info) Description 05/22/2024 Refill [facility] [address] [place] [address] Britney Sloan DO [address], [place] [id number] Encounter for long-term (current) use of medications* Allergies No known active allergiesdocumented as of this encounter (statuses as of 05/23/2024) Medications Medication Sig Dispensed Refills Start Date End Date Status fluticasone (FLONASE) 50 MCG/ACT nasal sprayIndications:E ar pain, bilateral,Nasal sinus congestion Administer 2 Sprays into each nostril daily. 1 Inhaler 5 05/02/2017 Active clobetasol propionate (TEMOVATE) 0.05 % ointmentIndication s:Lichen sclerosus of female genitalia Apply topically to affected area 2 times a day. To affected area for up to two weeks. 30 g 1 04/25/2018 Active Additional Information Patient not taking.Reported on 11/25/2023 EQ ASPIRIN ADULT LOW DOSE 81 MG TBECIndications:Is chemic chest pain (HCC),Abnormal nuclear stress test TAKE ONE TABLET BY MOUTH ONCE DAILY 90 Tab 3 05/29/2018 Active Vitamin E 1000 UNIT Oral Capsule Take 1 Capsule by mouth in the morning. 1 Cap 06/13/2018 Active traMADol (ULTRAM) 50 MG TabletIndications: Chronic right shoulder pain TAKE 1 TABLET BY MOUTH EVERY 6 HOURS NEEDED FOR MILD PAIN 30 Tab 03/13/2019 Active senna-docusate (SENNA S) 8.6-50 MG per tabletIndications: Constipation, unspecified constipation type Take 1 Tab by mouth 2 times a day. 60 Tab 3 11/02/2019 Active Ubiquinol 100 MG Oral Capsule Take 1 Tablet by mouth in the morning. Active Hydrocortisone 2.5 % External Cream Apply topically to affected area 3 times a day. To affected area. 30 g 5 08/22/2021 Active Additional Information Patient not taking.Reported on 05/15/2024 Hydrocortisone (Perianal) 2.5 % External Cream (Anusol-HC)Indicat ions:Hemorrhoids, external without complications Administer into the rectum 2 times a day. 28 g 3 08/28/2021 Active Clotrimazole 10 MG Mouth/Throat Karen (Mycelex Karen) Take by mouth 1 Lozenge 5 times a day . Allow tablet to slowly dissolve in your mouth 35 Karen 04/12/2022 Active Additional Information Patient not taking.Reported on 11/25/2023 Vitamin D3 10 MCG (400 UNIT) Oral Capsule Take 1 Capsule by mouth in the morning. Active Metoprolol Succinate ER 25 MG Oral Tablet Extended Release 24 Hour (toPROL XL)Indications:Ess ential hypertension TAKE 1 TABLET BY MOUTH DAILY 90 Tablet 3 10/18/2023 5 Active Omeprazole 20 MG Oral Capsule Delayed Release (PriLOSEC) TAKE ONE CAPSULE BY MOUTH EVERY DAY 30 MINUTES BEFORE MORNING AND EVENING MEALS 200 Capsule 3 10/31/2023 5 Active Furosemide 20 MG Oral Tablet (Lasix)Indications :HTN, goal below 130/80,Chronic diastolic congestive heart failure (HCC) TAKE 1 TABLET BY MOUTH ONCE DAILY 90 Tablet 3 11/11/2023 5 Active amLODIPine Besylate 2.5 MG Oral Tablet (Norvasc) Take 1 Tablet by mouth in the morning. 30 Tablet 5 11/18/2023 Active Losartan Potassium 100 MG Oral Tablet (Cozaar)Indication s:Essential hypertension TAKE ONE TABLET BY MOUTH EVERY DAY 100 Tablet 3 11/18/2023 Active amLODIPine Besylate 2.5 MG Oral Tablet (Norvasc) Take 1 Tablet by mouth in the morning. 90 Tablet 3 11/20/2023 Active Atorvastatin Calcium 40 MG Oral Tablet (Lipitor)Indicatio ns:Abnormal nuclear stress test TAKE ONE TABLET BY MOUTH EVERY DAY 100 Tablet 2 11/23/2023 5 Active Additional Information Patient not taking.Reported on 05/15/2024 Escitalopram Oxalate 10 MG Oral Tablet (Lexapro)Indicatio ns:Dysthymia TAKE ONE TABLET BY MOUTH EVERY DAY 100 Tablet 3 11/27/2023 Active Biotin 5000 MCG Oral Tablet Chewable Take [...] OR OTHER MEDICATIONS 100 Tablet 1 05/23/2024 5 Active Levothyroxine Sodium 25 MCG Oral Tablet (Levoxyl) TAKE 1 TABLET BY MOUTH DAILY AT LEAST 30 MINUTES PRIOR TO FIRST MEAL OF THE DAY OR OTHER MEDICATIONS 90 Tablet 2 09/02/2023 4 Discontinu ed(Refill) documented as of this encounter (statuses as of 05/23/2024) Active Problems Problem Noted Date Diagnosed Date Hypertensive heart disease w ith chronic diastolic congestive heart failure 11/04/2023 Hypothyroidism due to medication 05/13/2023 Chronic diastolic congestive heart failure 11/13 PVC (premature ventricular contraction) 11/14/19 23 Major depressive disorder, recurrent, unspecifie d 07/09/2019 Carotid stenosis, non-symptomatic, bilateral 12/2017 Coronary artery disease invo lving [place] coronary artery of [place] heart without angina pectoris 07/11/2016 Dyslipidemia, goal LDL below 70 07/11/2016 Gastroesophageal reflux disease without esophagi tis HTN, goal below 140/90 documented as of this encounter (statuses as of 05/23/2024) Resolved Problems Problem Noted Date Diagnosed Date [...] as of this encounter (statuses as of 05/23/2024) Immunizations Name Administration Dates Next Due COVID-19 mRNA, LNP-s, No Pre serve, 2-Dose Series (Moderna) 03/16/2022,08/04/2021,10/21/2020,09/22 COVID-19, MRNA-LNP, 23-24, P F, 50 MCG/0.5 mL, 12 YRS AND ABOVE, IM (MODERNA-Spikevax) 07/05/2023 Pneumococcal Conjugate Vacc, 13 Valent (Prevnar) 11/18/2014 Pneumococcal Conjugate Vacci ne, 7 Valent 03/27/2012 Pneumococcal Polysaccharide PPV23 (Pneumovax) 07/09/2019 Seasonal Influenza, PF, 6 M & above, IM , (FluLaval or Fluzone) 05/30/2020,05/04/2019 Seasonal Influenza, Quadriva lent Hd (Fluzone Hd) 07/05/2023,05/14/2022,06/29/2021 Seasonal Influenza, Quadriva lent, No Preserve, IM 06/07/2017,05/20/2014,05/31/2011 Seasonal Influenza, Trivalen t, (IIV3), with Preserv, (Fluzone) 07/10/2016 TD - Tetanus/Diptheria (ADULT) 04/25/2000 TDAP (age [...] on file documented as of this encounter Miscellaneous Notes * Telephone Encounter - Jeanette Mendez [facility] - 05/23/2024 7:05 AM EDT Signed Prescriptions: Disp Refills Levothyroxine Sodium 25 MCG Oral Tablet (L*100 Ta*1 Sig: TAKE 1 TABLET BY MOUTH DAILY AT LEAST 30 MINUTES PRIOR TO FIRST MEAL OF THE DAY OR OTHER MEDICATIONS Authorizing Provider: BRITNEY SLONA User: JEANETTE MENDEZ * Telephone Encounter - Jeanette Mendez RPh - 05/23/2024 7:04 AM EDT Protocol passed, but pt is due for TSH soon. Appropriate labs ordered. Patient may obtain these labs with next routine blood work. Thank you, Jeanette Mendez, PharmD Clinical Pharmacist [facility] Services (formally Telepharmacy) [phone] 05/23/2024 7:05 AM documented in this encounter Plan of Treatment Upcoming Encounters Date Type Department Care Team (Late st Contact Info) Description 06/01/2024 10:30 AM EDT Office Visit [facility] [address] [place] [address] Britney Sloan DO [address] [place] [address] 06/22/2024 1:00 PM EDT Imaging Vascular Lab, [facility] [address] [facility] [place] [address] [facility] [place] [address] 06/25/2024 3:00 PM EDT [facility] [address] [place] [facility] [place] [address] Tyler Rose CRNP [address] [place] [address] 09/07/2024 4:00 PM EST Office Visit Nephrology, [address] [place] [address] Mirella Hernandez [facility] [address] [facility] [place] [address] 01/19/2025 1:00 PM EDT Nurse Only Ancillary Department, [place] [address] [place] [address] [place], Nurse Annual Wellness [address] [place] [address] Scheduled Orders Name Type Priority Associated Diagnoses Orde r Schedule TSH WITH FREE T4 IF INDICATED Lab Routine Encounter for long-term (current) use of medications Expected: 05/30/2024 (Approximate), Expires: 05/23/2025 Health Maintenance Due Date Last Done Comments COVID-19 Vaccine ( season) 2024 07/05/2023, 03/16/2022, 08/04/2021, Additional history exists Influenza Vaccine (FLU shot) (#1) 2024 07/05/2023, 07/05/2023, 05/14/2022, Additional history exists TSH 07/22/2024 07/22/2023, 07/27, 10/02/2021, Additional history exists GFR 09/06/2024 09/06/2023, 06/27, 05/13/2023, Additional history exists Adult Wellness Visit 01/12/2025 01/13/2024, 01/11/20 Depression Monitoring 01/12/2025 01/13/2024 Albumin/Creatinine Ratio 08/23/2025 08/23/2022 DTap/Tdap Vaccines (2 - Td or Tdap) 06/07/2026 06/07/2016, 04/25/2000 DXA Scan 07/02/2030 07/02/2023, 07/02/2023 Pneumococcal Vaccine: 65+ Years Completed 07/09/2019, 11/18/2014 Zoster Vaccines Completed 06/18/2022, 10/02/2021 HPV (Gardasil) Vaccine Aged Out No lo nger eligible based on patient's age to complete this topic Hepatitis B Vaccine Aged Out No longe r eligible based on patient's age to complete this topic MENINGOCOCCAL (MENACTRA/MENVEO) Aged Out No longer eligible based on patient's age to complete this topic documented as of this encounter Medical Devices Implanted Type Area Manager Support Services Device Identifier Shelf Expiration Date Model / Serial / Lot Lens Intraoc 23.5 - [id number] - [id number] Implanted:Qty: 1 on 11/05/2019 by Kurtis Mcintosh MD at [facility] Right: Eye [employer] 05/25/2024 [id number] / [id number] / [id number] Lens Intraoc 23.0 - [id number] - [id number] Implanted:Qty: 1 on 11/16/2019 by Kurtis Mcintosh MD at [facility] Left: Eye [employer] 01/24/2024 [id number] / [id number] / [id number] documented as of this encounter Visit Diagnoses Diagnosis Encounter for long-term (current) use of medications- Primary Encounter for long-term (current) use of other medications documented in this encounter Care Teams Director Of Housing Relationship Specialty Start Date End Date Britney Sloan DO [address] [place] [address] PCP - General Family Medicine 06/07/16 documented as of this encounter
--- OUTSIDE RECORDS SUMMARY | 2024-08-07 07:42 | External Medical Summary ---
Author Name Unknown Address Unknown Organization [id number]:LAB[facility]ATORY [facility] - [address] [place] [address] Laboratory Report Ordering Provider Test Date Status ROBBIN BRAUNKASSIECAROL 06/01/2024 11:54:53 Final Deficient: <20 ng/mL
Ins ufficient: 20-29 ng/mL
Recommended/Optimum:30-50 ng/mL

Vitamin D intoxication is rare. If suspicious of Vitamin D toxicity, evaluation of serum Calcium and PTH is recommended. Observation Date Value Abnormality Reference (Units ) Status 25-OH Vitamin D total 06/01/2024 11:54:53 45 >19 (ng/mL) Final Performing Location LABORATORY [facility] - [address] [place] [address]
--- OUTSIDE RECORDS SUMMARY | 2024-08-07 07:42 | External Medical Summary | Summary of Care ---
Author Name Unknown Organization [facility] Address [address] [place] [address] Phone [phone] Care Team Providers Care Information Coordinator Name Role Phone Renee Meeks DO Primary Care Provider [phone] Reason for Visit * Reason Onset Date Comments Advice 04/07/2024 Encounter Details Date Type Department Care Team (Late st Contact Info) Description 04/07/2024 Telephone [facility] [address] [place] [address] Renee Meeks DO [address] [place] [address] Advice Allergies No known active allergiesdocumented as of this encounter (statuses as of 04/13/2024) Medications Medication Sig Dispensed Refills Start Date End Date Status fluticasone (FLONASE) 50 MCG/ACT nasal sprayIndications:Ea r pain, bilateral,Nasal sinus congestion Administer 2 Sprays into each nostril daily. 1 Inhaler 5 05/02/2017 Active clobetasol propionate (TEMOVATE) 0.05 % ointmentIndications :Lichen sclerosus of female genitalia Apply topically to [...] a day. 60 Tab 3 11/02/2019 Active Additional Information Patient not taking.Reported on 11/25/2023 Ubiquinol 100 MG Oral Capsule Take 1 Tablet by mouth in the morning. Active Hydrocortisone 2.5 % External Cream Apply topically to affected area 3 times a day. To affected area. 30 g 5 08/22/2021 Active Hydrocortisone (Perianal) 2.5 % External Cream [...] Capsule by mouth in the morning. Active hydrALAZINE HCl 10 MG Oral Tablet (Apresoline) Take 1 Tablet by mouth in the morning and 1 Tablet at noon and 1 Tablet before bedtime. 300 Tablet 3 06/19/2023 Active Levothyroxine Sodium 25 MCG Oral Tablet (Levoxyl) TAKE 1 TABLET BY MOUTH DAILY AT LEAST 30 MINUTES PRIOR TO FIRST MEAL OF THE DAY OR OTHER MEDICATIONS 90 Tablet 2 09/02/2023 Active Benzonatate 100 MG Oral CapsuleIndications: Subacute cough,Shortness of breath Take 1 Capsule by mouth 3 times a day as needed for Cough. 30 Capsule 1 10/07/2023 Active Additional Information Patient not taking.Reported on 11/25/2023 Metoprolol Succinate ER 25 MG Oral Tablet [...] Tablets by mouth in the morning. Active documented as of this encounter (statuses as of 04/13/2024) Active Problems Problem Noted Date Diagnosed Date Hypertensive heart disease w ith chronic diastolic congestive heart failure 11/04/2023 Hypothyroidism due to medication 05/13/2023 Chronic diastolic congestive heart failure 11/13 PVC (premature ventricular contraction) 11/14/19 23 Major depressive disorder, recurrent, unspecifie d 07/09/2019 Carotid stenosis, non-symptomatic, bilateral 12/2017 Coronary artery disease invo lving [place] coronary artery of [place] heart without angina pectoris 07/11/2016 Dyslipidemia, goal LDL below 70 07/11/2016 Gastroesophageal reflux disease without esophagi tis HTN, goal below 140/90 documented as of this encounter (statuses as of 04/13/2024) Resolved Problems Problem Noted Date Diagnosed Date [...] as of this encounter (statuses as of 04/13/2024) Immunizations Name Administration Dates Next Due COVID-19 [...] lent, No Preserve, IM 06/07/2017,05/20/2014,05/31/2011 Seasonal Influenza, Split, I IV3, With Preserve, Inj 07/10/2016 TD - Tetanus/Diptheria (ADULT) 04/25/2000 TDAP [...] encounter Miscellaneous Notes * Telephone Encounter - Lexii Patel LPN - 04/13/2024 1:45 PM EDT Attempted to call patient second time, there was no answer, left voicemail. When patient returns call, ok for MELISSA to relay message, please refer to below documentation. If needed, can transfer to dedicated nurse line. * Telephone Encounter - Renee Meeks DO - 04/13/2024 9:50 AM EDT Please call and check on status of patient, is she feeling any better? * Telephone Encounter - Lexii Patel LPN - 04/08/2024 1:49 PM EDT Attempted to call patient, there was no answer, left voicemail. When patient returns call, ok for MELISSA to relay message, please refer to below documentation. If needed, can transfer to dedicated nurse line. Hydration - how much is she drinking? Is she eating? Treatment of covid , if willing 3. What does she prefer? * Telephone Encounter - Yvonne Guzman PA-C - 04/08/2024 12:52 PM EDT Hydration - how much is she drinking? Is she eating? Treatment of covid , if willing What does she prefer? Yvonne Guzman PA-C 04/08/2024 12:53 PM * Telephone Encounter - Robina Thomas OSA - 04/08/2024 12:29 PM EDT Reason for patient call/what is patient requesting? Med request Have you had symptoms of COVID-19 such as fever, sore throat, shortness of breath? COVID19 Symptoms:yes Date of first symptoms: 04/06/2024 Date of last fever: still has one Date of last symptoms: still has them Have you had close exposure to someone who tested positive for COVID-19? COVID19 Exposure: not that she knows of Date of first exposure: Date of last exposure: Testing location requested: Positive COVID 19 test in the past 90 days? Home test 04/08/24 Did you have 2 vaccines yes Boosters 3 Call Details are Required * Telephone Encounter - Nakul Rivera OSA - 04/07/2024 1:11 PM EDT Pt has called in mentioned she is having cramps in her legs every night and Is very painful, "what can I do"? Please call PT with more information Thank you documented in this encounter Plan of Treatment Upcoming Encounters Date Type Department Care Team (Late st Contact Info) Description 05/15/2024 3:20 PM EDT Office Visit Nephrology, [facility] [address] [facility] [place] [address] Mirella Hernandez MD [address] [place] [address] 06/01/2024 10:30 AM EDT Office Visit Family Practice, [place] [address] [place] [phone] Renee Meeks DO [address], [place] [id number] 06/22/2024 1:00 PM EDT Imaging Vascular Lab, [facility] [address] [facility] [place] [address] [place] [address] 06/25/2024 3:00 PM EDT Telemedicine Vascular Surg [facility] [address] [place] [address] Tyler Rose CRNP [address] [place], [place] [id number] 01/19/2025 1:00 PM EDT Nurse Only Ancillary Department, [place] [address] [place] [address] [place], Nurse Annual Wellness [address], [place] [id number] Health Maintenance Due Date Last Done Comments COVID-19 Vaccine (2022-24 season) 2023 07/05/2023, 03/16/2022, 08/04/2021, Additional history exists Influenza Vaccine (FLU shot) (#1) 2024 07/05/2023, 07/05/2023, 05/14/2022, Additional history exists TSH 07/22/2024 07/22/2023, 07/27, 10/02/2021, Additional history exists GFR 09/06/2024 09/06/2023, 06/27, 05/13/2023, Additional history exists Adult Wellness Visit 01/12/2025 01/13/2024, 01/11/20 23 Depression Monitoring 01/12/2025 01/13/2024 Albumin/Creatinine Ratio 08/23/2025 08/23/2022 DTaP,Tdap,and Td Vaccines (2 - Td or Tdap) 06/07/2026 [...] this encounter Medical Devices Implanted Type Area Leaf Stamper Device Identifier Shelf Expiration Date Model / Serial / Lot Lens Intraoc 23.5 - [id number] - [id number] Implanted:Qty: 1 on 11/05/2019 by Kurtis Mcintosh MD at [facility] Right: Eye [employer] 05/25/2024 [id number] / [id number] / [id number] Lens Intraoc 23.0 - [id number] - [id number] Implanted:Qty: 1 on 11/16/2019 by Kurtis Mcintosh MD at OR [facility] Left: Eye [employer] 01/24/2024 [id number] / [id number] / [id number] documented as of this encounter Care Teams Information Coordinator Relationship Specialty Start Date End Date Renee Meeks DO [address] [place] [address] PCP - General Family Medicine 06/07/16 documented as of this encounter
--- OUTSIDE RECORDS SUMMARY | 2024-08-07 07:42 | External Medical Summary ---
Author Name Unknown Address Unknown Organization K01:[facility] - [address] [place] [address] Laboratory Report Ordering Provider Test Date Status SHELL BRAUN 06/01/2024 11:54:53 Final Observation Date Value Abnormality Reference (Units ) Status BUN 06/01/2024 11:54:53 23 Above high normal 6-20 (mg/dL) Final Creatinine 06/01/2024 11:54:53 1.9 Above high normal 0.5-1.0 (mg/dL) Final Glomerular filtration rate/1.73 sq M.predicted [Volume Rate/Area] in Serum, Plasma or Blood by Creatinine-based formula (CKD-EPI) 06/01/2024 11:54:53 27 Below low normal >=60 (mL/min) Final eGFR is calculated based on the CKD-EPI 2020 equation. Sodium 06/01/2024 11:54:53 136 135-146 (m mol/L) Final Potassium 06/01/2024 11:54:53 4.5 3.5-5.1 (m mol/L) Final Cl 06/01/2024 11:54:53 99 98-107 (mm ol/L) Final CO2 06/01/2024 11:54:53 24 22-32 (mmo l/L) Final Anion gap 06/01/2024 11:54:53 13 7-15 (mmol /L) Final Glucose 06/01/2024 11:54:53 94 70-120 (mg /dL) Final Calcium 06/01/2024 11:54:53 9.8 8.4-10.2 ( mg/dL) Final Performing Location [facility] - [address] [place] [address]
--- OUTSIDE RECORDS SUMMARY | 2024-08-07 07:42 | External Medical Summary | Summary of Care ---
Author Name Unknown Organization [facility] Address [address] [place] [address] Phone [phone] Care Team Providers Care Overnight Stocker Name Role Phone RajinderRenee carter Treva SAAB Primary Care Provider [phone] Reason for Visit * Reason Comments Return Visit Hypertension Encounter Details Date Type Department Care Team (Late st Contact Info) Description 05/15/2024 3:20 PM EDT Office Visit Nephrology, [address] [address] Mirella Hernandez MD [address] [place] [address] Stage 3b chronic kidney disease (HCC)*; HTN, goal below 140/90 Allergies No known active allergiesdocumented as of this encounter (statuses as of 05/15/2024) Medications Medication Sig Dispensed Refills Start Date End Date Status fluticasone (FLONASE) 50 MCG/ACT nasal sprayIndications: Ear pain, bilateral,Nasal sinus congestion Administer 2 Sprays into each nostril daily. 1 Inhaler 5 7 Active clobetasol propionate (TEMOVATE) 0.05 % ointmentIndicatio ns:Lichen sclerosus of female genitalia Apply topically to affected area 2 times a day. To affected area for up to two weeks. 30 g 1 8 Active Additional Information Patient not taking.Reported on [...] day. To affected area. 30 g 5 1 Active Additional Information Patient not taking.Reported on 05/15/2024 Hydrocortisone (Perianal) 2.5 % External Cream (Anusol-HC)Indica tions:Hemorrhoids , external without complications Administer into the rectum 2 times a day. 28 g 3 2 Active Clotrimazole 10 MG Mouth/Throat Karen (Mycelex Karen) Take by mouth 1 Lozenge 5 times a day . Allow tablet to slowly dissolve in your mouth 35 Karen 2 Active Additional Information Patient not taking.Reported on 11/25/2023 Vitamin D3 10 MCG (400 UNIT) Oral Capsule Take 1 Capsule by mouth in the morning. Active Levothyroxine Sodium 25 MCG Oral Tablet (Levoxyl) TAKE 1 TABLET BY MOUTH DAILY AT LEAST 30 MINUTES PRIOR TO FIRST MEAL OF THE DAY OR OTHER MEDICATIONS 90 Tablet 2 4 09/01/19 25 Active Metoprolol Succinate ER 25 MG Oral Tablet Extended Release 24 Hour (toPROL XL)Indications:Es sential hypertension TAKE 1 TABLET BY MOUTH DAILY 90 Tablet 3 4 10/17/19 25 Active Omeprazole 20 MG Oral Capsule Delayed Release (PriLOSEC) TAKE ONE CAPSULE BY MOUTH EVERY DAY 30 MINUTES BEFORE MORNING AND EVENING MEALS 200 Capsule 3 4 10/31/19 25 Active Furosemide 20 MG Oral Tablet (Lasix)Indication s:HTN, goal below 130/80,Chronic diastolic congestive heart failure (HCC) TAKE 1 TABLET BY MOUTH ONCE DAILY 90 Tablet 3 4 11/11/19 25 Active amLODIPine Besylate 2.5 MG Oral Tablet (Norvasc) Take 1 Tablet by mouth in the morning. 30 Tablet 5 4 Active Losartan Potassium 100 MG Oral Tablet (Cozaar)Indicatio ns:Essential hypertension TAKE ONE TABLET BY MOUTH EVERY DAY 100 Tablet 3 4 Active amLODIPine Besylate 2.5 MG Oral Tablet (Norvasc) Take 1 Tablet by mouth in the morning. 90 Tablet 3 4 Active Atorvastatin Calcium 40 MG Oral Tablet (Lipitor)Indicati ons:Abnormal nuclear stress test TAKE ONE TABLET BY MOUTH EVERY DAY 100 Tablet 2 4 11/23/19 25 Active Additional Information Patient not taking.Reported on 05/15/2024 Escitalopram Oxalate 10 MG Oral Tablet (Lexapro)Indicati ons:Dysthymia TAKE ONE TABLET BY MOUTH EVERY DAY 100 Tablet 3 4 Active Biotin 5000 MCG Oral Tablet Chewable Take 2 Tablets by mouth in the morning. Active hydrALAZINE HCl 25 MG Oral Tablet (Apresoline) Take 1 Tablet by mouth in the morning and 1 Tablet at noon and 1 Tablet before bedtime. 270 Tablet 3 4 Active hydrALAZINE HCl 10 MG Oral Tablet (Apresoline) Take 1 Tablet by mouth in the morning and 1 Tablet at noon and 1 Tablet before bedtime. 300 Tablet 3 3 05/15/20 24 Discontinued Benzonatate 100 MG Oral CapsuleIndication s:Subacute cough,Shortness of breath Take 1 Capsule by mouth 3 times a day as needed for Cough. 30 Capsule 1 4 05/15/20 24 Discontinued(En d of Procedure) documented as of this encounter (statuses as of 05/15/2024) Active Problems Problem Noted Date Diagnosed Date Hypertensive heart disease w ith chronic diastolic congestive heart failure 11/04/2023 Hypothyroidism due to medication 05/13/2023 Chronic diastolic congestive heart failure 11/13 PVC (premature ventricular contraction) 11/14/19 23 Major depressive disorder, recurrent, unspecifie d 07/09/2019 Carotid stenosis, non-symptomatic, bilateral 12/2017 Coronary artery disease invo lving [place] coronary artery of [place] heart without angina pectoris 07/11/2016 Dyslipidemia, goal LDL below 70 07/11/2016 Gastroesophageal reflux disease without esophagi tis HTN, goal below 140/90 documented as of this encounter (statuses as of 05/15/2024) Resolved Problems Problem Noted Date Diagnosed Date [...] as of this encounter (statuses as of 05/15/2024) Immunizations Name Administration Dates Next Due COVID-19 [...] on file documented as of this encounter Last Filed Vital Signs Vital Sign Reading Time Taken Comments Blood Pressure 174/57 05/15/2024 3:33 PM EDT Pulse 58 05/15/2024 3:33 PM EDT Temperature 37.2 C (99 F) 05/15/2024 3:33 PM EDT Respiratory Rate 20 05/15/2024 3:33 PM EDT Oxygen Saturation 97% 05/15/2024 3:33 PM EDT Inhaled Oxygen Concentration - - Weight 60.2 kg (132 lb 12.8 oz) 05/15/2024 3:33 PM EDT Height - - Body Mass Index 28.74 01/13/2024 1:24 PM EDT documented in this encounter Progress Notes * Mirella Hernandez MD - 05/15/2024 3:24 PM EDT REASON FOR VISIT: CKD HPI: Hue Gann is a 83 year old female seen in follow-up for CKD. Past medical history of hypertension, hyperlipidemia, depression, coronary artery disease, carotid stenosis, hypothyroidism and CKD stage 3. Prior baseline creatinine of 1 but increased to 1.2 in 2022 and most recently 1.4. She had COVID in July 2023. No NSAIDs. Home BP in the 140 to 160 range. Her blood pressure is very high on the right arm and lower in the left arm with the 50 point difference in the systolic blood pressure. Her mother shortly before starting dialysis in her early 80s. Last visit was August 2023. She stopped lipitor due to muscle cramps. Recent COVID infection but self limiting. No leg swelling. Wears compression stockings. Home Bp is good most of the time but shehas had some high readings with systolic in the 160s. No urinary symptoms. Past Medical History: Diagnosis Date CAD (coronary artery disease) Depression GERD (gastroesophageal reflux disease) Hypertension Review of Systems: General ROS: negative for - chills or fever Psychological ROS: negative for - mood swings ENT ROS: negative for - nasal congestion or nasal discharge Endocrine ROS: negative Respiratory ROS: no cough, shortness of breath, or wheezing Cardiovascular ROS: no chest pain or dyspnea on exertion Gastrointestinal ROS: no abdominal pain, change in bowel habits, or black or bloody stools Genito-Urinary ROS: no dysuria, trouble voiding, or hematuria Musculoskeletal ROS: negative for - muscle pain Neurological ROS: no TIA or stroke symptoms Dermatological ROS: negative for rash Family History Problem Relation Name Age of Onset Cancer Mother cancer Other (unknown [Other]) Father Other (cardiac [Other]) Aunt (Unspecified) pacemaker. Social History Socioeconomic History Marital status: Spouse name: Not on file Number of children: Not on file Years of education: Not on file Highest education level: Not on file Occupational History Not on file Tobacco Use Smoking status: Never Smokeless tobacco: Never Vaping Use Vaping status: Never Used Substance and Sexual Activity Alcohol use: Yes Comment: very rare Drug use: No Sexual activity: Never Other Topics Concern Not on file Social History Narrative Lives with . 4 children. 1 in [place], 1 [place], and 1 [place] Another in [place] 7 grandchildren. Social Determinants of Health Financial Resource Strain: Not on file Food Insecurity: No Food Insecurity (01/10/2023) Hunger Vital Sign Worried About Running Out of Food in the Last Year: Never true Ran Out of Food in the Last Year: Never true Transportation Needs: Not on file Social Connections: Unknown (02/11/2024) Social Connections How often do you feel lonely or isolated from those around you? (Adult - for ages 18 years and over): Not on file Housing Stability: Not on file Current Outpatient Medications Medication Sig Dispense Refill [...] 1 Capsule by mouth in the morning. Levothyroxine Sodium 25 MCG Oral Tablet (Levoxyl) TAKE 1 TABLET BY MOUTH DAILY AT LEAST 30 MINUTES PRIOR TO FIRST MEAL OF THE DAY OR OTHER MEDICATIONS 90 Tablet 2 Metoprolol Succinate ER 25 MG Oral Tablet Extended Release 24 Hour (toPROL XL) TAKE 1 TABLET BY MOUTH DAILY 90 Tablet 3 Omeprazole 20 MG Oral Capsule Delayed Release (PriLOSEC) TAKE ONE CAPSULE BY MOUTH EVERY DAY 30 MINUTES BEFORE MORNING AND EVENING MEALS 200 Capsule 3 Furosemide 20 MG Oral Tablet (Lasix) TAKE 1 TABLET BY MOUTH ONCE DAILY 90 Tablet 3 amLODIPine Besylate 2.5 MG Oral Tablet (Norvasc) Take 1 Tablet by mouth in the morning. 30 Tablet 5 Losartan Potassium 100 MG Oral Tablet (Cozaar) TAKE ONE TABLET BY MOUTH EVERY DAY 100 Tablet 3 Escitalopram Oxalate 10 MG Oral Tablet (Lexapro) TAKE ONE TABLET BY MOUTH EVERY DAY 100 Tablet 3 Biotin 5000 MCG Oral Tablet Chewable Take 2 Tablets by mouth in the morning. hydrALAZINE HCl 25 MG Oral Tablet (Apresoline) Take 1 Tablet by mouth in the morning and 1 Tablet at noon and 1 Tablet before bedtime. 270 Tablet 3 clobetasol propionate (TEMOVATE) 0.05 % ointment Apply topically to affected area 2 times a day. Toaffected area for up to two weeks. (Patient not taking: Reported on 11/25/2023) 30 g 1 Hydrocortisone 2.5 % External Cream Apply topically to affected area 3 times a day. To affected area. (Patient not taking: Reported on 05/15/2024) 30 g 5 Clotrimazole 10 MG Mouth/Throat Karen (Mycelex Karen) Take by mouth 1 Lozenge 5 times a day . Allow tablet to slowly dissolve in your mouth (Patient not taking: Reported on 11/25/2023) 35 Karen 0 amLODIPine Besylate 2.5 MG Oral Tablet (Norvasc) Take 1 Tablet by mouth in the morning. 90 Tablet 3 Atorvastatin Calcium 40 MG Oral Tablet (Lipitor) TAKE ONE TABLET BY MOUTH EVERY DAY (Patient not taking: Reported on 05/15/2024) 100 Tablet 2 No current facility-administered medications for this visit. Filed Vitals: 05/15/24 1533 BP: 174/57 Pulse: 58 Resp: 20 Temp: 37.2 C (99 F) TempSrc: Tympanic SpO2: 97% Weight: 60.2 kg (132 lb 12.8 oz) PHYSICAL EXAM: GENERAL: Alert, in no acute distress. EYES: PERRL, conjunctivae anicteric. ENT: Mucous membranes moist, oropharynx clear. NECK: Supple, no JVD. LYMPH: No cervical or supraclavicular lymphadenopathy. LUNGS: Clear to auscultation bilaterally, no respiratory distress. CARDIAC: Regular rate and rhythm, normal S1/S2, no murmurs, rubs, or gallops. ABDOMEN: Soft, non-tender, non-distended, bowel sounds present. EXT/MSK: No clubbing, cyanosis, or edema. SKIN: No rash, no jaundice. NEURO: No tremor, no asterixis. LABS/STUDIES: Recent Labs Units 09/06/23 0953 07/22/23 1109 05/13/23 1505 08/23/22 1106 SODIUM - [facility] mmol/L 142 140 141 142 POTASSIUM - [facility] mmol/L 4.1 4.3 4.5 4.1 CHLORIDE - [facility] mmol/L 103 102 102 103 CO2 - [facility] mmol/L 28 26 27 30 BUN - [facility] mg/dL 28* 20 22* 13 CREATININE - [facility] mg/dL 1.4* 1.1* 1.2* 1.0 Recent Labs Units 03/04/23 1129 08/23/22 1106 WBC K/uL 6.96 7.57 HGB g/dL 13.3 13.0 PLT K/uL 268 318 Recent Labs Units 09/06/23 0953 07/22/23 1109 05/13/23 1505 08/23/22 1106 CALCIUM - [facility] mg/dL 10.1 9.9 10.1 9.4 No results for input(s): "HGBA1C" in the last 53200 hours. No results for input(s): "MICROALBUMIN", "PROCRRATIO" in the last 67245 hours. ASSESSMENT AND PLAN Hue was seen today for return visit and hypertension. 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 Recent creatinine of 1.4 and GFR of 38 mL/minute which is her baseline. Electrolytes are stable. Discussed importance of optimal blood pressure control. We increasing her hydralazine. Will repeat a BMP at the next visit with PCP HTN, goal below 140/90 Blood pressure is above target. We increasing hydralazine 25 mg three times daily. I have asked herto monitor blood pressure twice daily at home and send a list of blood pressure readings in 2 weeks. Other orders - hydrALAZINE HCl 25 MG Oral Tablet (Apresoline); Take 1 Tablet by mouth in the morning and 1 Tablet at noon and 1 Tablet before bedtime. Follow Up: Return in about 3 months (around 08/14/2024). Mirella Hernandez MD Nephrology, [facility] [address] [place] [address] This note was generated with the help of voice recognition software. Please excuse for errors. documented in this encounter Nursing Notes * Sue Loco LPN - 05/15/2024 3:30 PM EDT Patient identified by verbal name and date of . Chief Complaint Patient presents with Return Visit Hypertension No recent inpatient hospital stays or ED visits Pt notes SOB post Covid 04/09/24 Pt wearing compression stockings No lower extremity edema Last labs 09/06/23 documented in this encounter Plan of Treatment Upcoming Encounters Date Type Department Care Team (Late st Contact Info) Description 06/01/2024 10:30 AM EDT Office Visit [facility] [address] [place] [id number] Renee Meeks DO [address] [place] [address] 06/22/2024 1:00 PM EDT Imaging Vascular Lab, [facility] 2nd Floor, [address] [address] 06/25/2024 3:00 PM EDT Telemedicine Vascular Surg [facility] [address] [place] [address] Tyler Rose CRNP [address] [place], [place] [id number] 09/07/2024 4:00 PM EST Office Visit Nephrology, [facility] [address] [place] [address] Mirella Hernandez MD [address] [place] [address], [place] [address] 01/19/2025 1:00 PM EDT Nurse Only Ancillary Department, [facility] [address] [facility] [address] Central, Nurse Annual Wellness [address] [place] [address] Scheduled Orders Name Type Priority Associated Diagnoses Orde r Schedule 25-HYDROXY VITAMIN D Lab Routine Stage 3b chronic kidney disease (HCC) Expected: 06/01/2024, Expires: 05/15/2025 BASIC METABOLIC PANEL Lab Routine Stage 3b chronic kidney disease (HCC) Expected: 06/01/2024, Expires: 05/15/2025 PTH Lab Routine Stage 3b chronic kidney disease (HCC) Expected: 06/01/2024, Expires: 05/15/2025 PROTEIN/ CREATININE RATIO, URINE Lab Routine Stage 3b chronic kidney disease (HCC) Expected: 06/01/2024, Expires: 05/15/2025 Health Maintenance Due Date Last Done Comments [...] this encounter Medical Devices Implanted Type Area Physician Non Invasive Cardiologist Device Identifier Shelf Expiration Date Model / Serial / Lot Lens Intraoc 23.5 - [id number] - [id number] Implanted:Qty: 1 on 11/05/2019 by Kurtis Mcintosh MD at OR [facility] Right: Eye [employer] 05/25/2024 [id number] / [id number] / [id number] Lens Intraoc 23.0 - [id number] - [id number] Implanted:Qty: 1 on 11/16/2019 by Kurtis Mcintosh MD at OR [facility] Left: Eye [employer] 01/24/2024 [id number] / [id number] / [id number] documented as of this encounter Visit Diagnoses Diagnosis Stage 3b chronic kidney disease (HCC)- Primary HTN, goal below 140/90 Unspecified essential hypertension documented in this encounter Care Teams Overnight Stocker Relationship Specialty Start Date End Date Renee Meeks DO [address] [place] [address] PCP - General Family Medicine 06/07/16 documented as of this encounter
--- OUTSIDE RECORDS SUMMARY | 2024-08-07 07:42 | External Medical Summary | Summary of Care ---
Author Name Unknown Organization [facility] Address [address] [place] [address] Phone [phone] Care Team Providers Care Puncher Name Role Phone Renee Meeks DO Primary Care Provider + [phone] Reason for Visit * Reason Comments NEW PATIENT Left 1st [facility] [place] * Evaluate & Treat - Unlimited Visits (Within 10 days (routine)) - Authorized Specialty Diagnoses / Procedures Referred By Jim arriaga Referred To Contact Orthopaedic Surgery / Orthopedics Diagnoses Thumb pain, left Renee Meeks DO [address] [place] [address] Referral ID Status Reason Start Date Expiration Date Visits Requested Visits Authorized [id number] Authorized Specialty Services Required 06/01/[id number] Encounter Details Date Type Department Care Team (Late st Contact Info) Description 06/10/2024 9:00 AM EDT Office Visit Orthopaed[facility] [address] [facility] [place] [address] Maninder Nogueira DO [address] [facility] [place] [address] CMC arthritis* Allergies No known active allergiesdocumented [...] bilateral 12/2017 Coronary artery disease invo lving [place] coronary artery of [place] heart without angina pectoris 07/11/2016 Dyslipidemia, goal [...] - 06/10/2024 9:00 AM EDT Hue Gann [id number] INJECTION and office NOTE Hue Gann is a 83 year old female who [facility] to [facility] for Bilateral [facility] injections Injected last 01/16/2023 TODAY: She reports her right is still doing well she would only like to have her left injected. Patient Active Problem List Diagnosis Gastroesophageal reflux disease without esophagitis HTN, goal below 140/90 Coronary artery disease involving [place] coronary artery of [place] heart without angina pectoris Dyslipidemia, goal LDL [...] mL Maninder Nogueira DO, MBA, FAAFP, RMSK [facility] [employer] Team MemberChemical Tank Worker Primary Care Sports Medicine Team Physician [facility] Office locations: Orthopaedics [place] [address] [address] This chart was completed in part utilizing [employer] Speech Voice Recognition Software. Grammatical errors, random [...] for local anesthetic. The carpal space at [facility] [place] [place] was injected using 1.5 inch, 25 gauge [...] Nogueira DO Sports Medicine Primary Care Orthopaedics [address] [address] documented in this encounter Nursing Notes * [...] 06/22/2024 1:00 PM EDT Imaging Vascular Lab, [facility], [address] [place] [address] 06/25/2024 3:00 PM EDT Telemedicine [facility] [address] [place] [address] Tyler Rose CRNP [address] [facility] [place] [address] 09/07/2024 4:00 PM EST Office Visit Nephrology, [facility] [address] [place] [address] Mirella Hernandez MD [address] [place] [address] 12/14/2024 10:30 AM EDT Office Visit Family Practice, [place] [address] [facility], [place] [address] Renee Meeks DO [address] [facility] [address] 01/19/2025 1:00 PM EDT Nurse Only Ancillary Department, [place] [address] [facility] [address] [place], Nurse Annual Wellness [address] [facility] [id number] Scheduled Orders Name Type Priority Associated Diagnoses [...] this encounter Medical Devices Implanted Type Area County Manager Device Identifier Shelf Expiration Date Model / Serial / Lot Lens Intraoc 23.5 - [id number] - [id number] Implanted:Qty: 1 on 11/05/2019 by Kurtis Mcintosh MD at OR [facility] Right: Eye [employer] 05/25/2024 [id number] / [id number] / [id number] Lens Intraoc 23.0 - [id number] - [id number] Implanted:Qty: 1 on 11/16/2019 by Kurtis Mcintosh MD at OR [facility] Left: Eye [employer] 01/24/2024 [id number] / [id number] / [id number] documented as of this encounter Visit Diagnoses [...] Left documented in this encounter Care Teams Puncher Relationship Specialty Start Date End Date Renee Meeks DO [address] [place] [facility] [place] [address] PCP - General Family Medicine 06/07/16 documented as of this encounter
--- OUTSIDE RECORDS SUMMARY | 2024-08-07 07:42 | External Medical Summary ---
Author Name Unknown Address Unknown Organization K01:[facility] [place] [address] [place] [address] Laboratory Report Ordering Provider Test Date Status BAKARI HERNANDEZ 06/01/2024 11:54:53 Final Observation Date Value Abnormality Reference (Units ) Status MYCODE SPECIMEN-SST 06/01/2024 11:54:53 Freezing of extracted DNA, whole blood and/or serum. Final Performing Location [facility] [place] [address] [place] [address]
--- OUTSIDE RECORDS SUMMARY | 2024-08-07 07:42 | External Medical Summary | Summary of Care ---
Author Name Unknown Organization [facility] Address [address] [place] [address] Phone [phone] Care Team Providers Care Plastics Fabricator And Assembler Name Role Phone Renee Meeks DO Primary Care Provider [phone] Reason for Referral * Evaluate & Treat - Unlimited Visits (Within 10 days (routine)) - Authorized Specialty Diagnoses / Procedures Referred By Contbeverly t Referred To Contact Orthopaedic Surgery / Orthopedics Diagnoses Thumb pain, left Renee Meeks DO [address] [place] [address] Referral ID Status Reason Start Date Expiration Date Visits Requested Visits Authorized [id number] Authorized Specialty Services Required 06/01/2024 999 999 Question Answer Referral Priority Within 10 days (routine) Where should this appointment be scheduled? [facility] What body part is the patient being seen for? Hand What condition is the patient being seen for? Sprain/Strain/Tear/Other Reason for Visit * Reason Onset Date Comments Follow Up Return in [address] [place] [address] Medication Administration 06/01/2024 Flu an d/or Pneumo Inj Encounter Details Date Type Department Care Team (Late st Contact Info) Description 06/01/2024 10:30 AM EDT [facility] [address] [place] [phone] Renee Meeks DO [address], [place] [id number] HTN, goal below 140/90*; Episode of recurrent major depressive disorder, unspecified depression episode severity (HCC); Hypertensive heart disease with chronic diastolic congestive heart failure (HCC); Chronic diastolic congestive heart failure (HCC); Dyslipidemia, goal LDL below 70; Coronary artery disease involving [place] coronary artery of [place] heart without angina pectoris; Hypothyroidism due to medication; Urine frequency; HOFFMAN (dyspnea on exertion); Need for prophylactic vaccination and inoculation against influenza; Thumb pain, left Allergies No known active allergiesdocumented as of [...] Active Hydrocortisone (Perianal) 2.5 % External Cream (Anusol-HC)Indicat [...] BY MOUTH DAILY 90 Tablet 3 10/18/2023 Active Omeprazole 20 MG Oral Capsule Delayed [...] Active Escitalopram Oxalate 10 MG Oral Tablet (Lexapro)Indicatio [...] Active amLODIPine Besylate 2.5 MG Oral Tablet (Norvasc)Indicatio ns:HTN, goal below 140/90 Take 1 Tablet by mouth in the morning. 90 Tablet 3 06/01/2024 Active clobetasol propionate (TEMOVATE) 0.05 % ointmentIndication s:Lichen sclerosus of female genitalia Apply topically to affected area 2 times a day. To affected area for up to two weeks. 30 g 1 04/25/2018 4 Discontinu ed(Medicat ion List Clean Up) Hydrocortisone 2.5 % External Cream Apply topically to affected area 3 times a day. To affected area. 30 g 5 08/22/2021 4 Discontinu ed(Medicat ion List Clean Up) Clotrimazole 10 MG Mouth/Throat Karen (Mycelex Karen) Take by mouth 1 Lozenge 5 times a day . Allow tablet to slowly dissolve in your mouth 35 Karen 04/12/2022 4 Discontinu ed(Medicat ion List Clean Up) amLODIPine Besylate 2.5 MG Oral Tablet (Norvasc) Take 1 Tablet by mouth in the morning. 30 Tablet 5 11/18/2023 4 Discontinu ed(Refill) documented as of this [...] bilateral 12/2017 Coronary artery disease invo lving [place] coronary artery of [place] heart without angina pectoris 07/11/2016 Dyslipidemia, goal [...] Date Smoking Tobacco: Never Smokeless Tobacco: Never Tobacco Cessation:Counseling Given: Not Answered Alcohol Use Standard Drinks/Week Comments Yes 0 [...] Sign Reading Time Taken Comments Blood Pressure 152/60 06/01/2024 10:26 AM EDT Pulse 62 06/01/2024 10:26 AM EDT Temperature 36.6 C (97.8 F) 06/01/2024 10:26 AM E DT Respiratory Rate 18 06/01/2024 10:26 AM EDT Oxygen Saturation 98% 06/01/2024 10:26 AM EDT Inhaled Oxygen Concentration - - Weight 61.1 kg (134 lb 9.6 oz) 06/01/2024 10:26 AM EDT Height 144.8 cm (4' 9") 06/01/2024 10:26 AM EDT Body Mass Index 29.13 06/01/2024 10:26 AM EDT documented in this encounter Progress Notes * Kizzy Seth LPN - 06/01/2024 11:24 AM EDT PRE - ADMINISTRATION DOCUMENTATION Are you experiencing any cold symptoms or fever? No Have you had Guillain-Tioga Syndrome (an illness that causes paralysis) within the last 6 weeks? No Have you had the flu shot in the past? YES Have you ever had a reaction to the flu shot? No Kizzy Seth LPN, 06/01/2024 11:24 AM Immunization Administration Documentation Time Out Procedure Performed: Yes Patient Identified (Ask Name/Date of ): Yes Does the patient have a fever greater than 101 degrees today? No Patient allergic to latex? No VFC Stock: No Immunization(s) verified: Yes, Immunization Name: Flu, VIS Sheet(s) given: Yes Verified Side and Site: Yes Verified Shot(s) with Parent(s)/Patient: Yes * Renee Meeks, - 06/01/2024 10:51 AM EDT Subjective: Hue Gann is a 83 year old female. Chief Complaint Patient presents with Follow Up Return in 6 months HPI: 83 year old female with hx of labile HTN, CAD, Dyslipidemia, PVCs, Hypothyroidism, GERD, and onmeds as listed She has been seeing Nephrology, Dr Hernandez and he has recently increased her hydralazine to 3 times a day . Reports that she may have missed doses. She brought in her BP log and her BP fluctuates greatly from 205/67-113/45 She states she gets shortness of breath with walking at times up her driveway Increase in urination. + left thumb pain. 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 90 Tablet 3 Escitalopram Oxalate 10 MG Oral Tablet (Lexapro) TAKE ONE TABLET BY MOUTH EVERY DAY (Patient not taking: Reported on 06/01/2024) 100 Tablet 3 No current facility-administered medications for this visit. Review of patient's allergies indicates: No Known Allergies Objective: BP 152/60 | Pulse 62 | Temp 36.6 C (97.8 F) (Tympanic) | Resp 18 | Ht 1.448 m (4' 9") | Wt 61.1kg (134 lb 9.6 oz) | SpO2 98% | BMI 29.13 kg/m | BSA 1.57 m Physical Exam: General: alert, healthy, and no distress Heart: regular rate & rhythm, no murmur, and no gallops Lungs: chest symmetric with normal AP diameter, no chest deformities noted, no chest wall tenderness, lungs clear to auscultation Abdomen: abdomen soft, non-tender, normal bowel sounds, and no masses or organomegaly Extremities: swelling around the L thumb joint, appears like OA EKG normal sinus. No ST seg changes. ASSESSMENT/PLAN: HTN, goal below 140/90 (Primary) - amLODIPine Besylate 2.5 MG Oral Tablet (Norvasc); Take 1 Tablet by mouth in the morning. Labile, She is on hydralazine, norvasc, losartan and still readings that can fluctuate. Suggested to cont above medications, will hold on additional medications. Episode of recurrent major depressive disorder, unspecified depression episode severity (HCC) Stable. Hypertensive heart disease with chronic diastolic congestive heart failure (HCC) Has BMP ordered today. Chronic diastolic congestive heart failure (HCC) Stable echo 1 year ago. Dyslipidemia, goal LDL below 70 Stable. 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 To see if she can get an injection, will order ortho referral. Follow Up: Return in about 6 months (around 11/30/2024) for Labs Today. | For: Labs Today | Check-outnote: Ortho referral. Renee Meeks DO documented in this encounter Nursing Notes * Kizzy Seth LPN - 06/01/2024 10:26 AM EDT The patient has been properly identified by confirmation of name and date of . Chief Complaint Patient presents with Follow Up Return in 6 months Patient would like to discuss her blood pressures Home was 144/54 SOB with exertion- leg pain with this Increased fatigue Increased urinary stops Getting chills frequently documented in this encounter Plan of Treatment Upcoming Encounters Date Type Department Care Team (Late st Contact Info) Description 06/10/2024 9:00 AM EDT Office Visit Orthopaedics [facility] [address] [facility] [place] [address] Maninder Nogueira DO [address] [facility] [place] [address] 06/22/2024 1:00 PM EDT Imaging Vascular Lab, [facility] 2nd Floor, [place] [address] [facility] [place] [address] 06/25/2024 3:00 PM EDT Telemedicine Vascular Surg [facility] [address] [place], [place] [phone] Tyler Rose CRNP [address] [place] [address] 09/07/2024 4:00 PM EST Office Visit Nephrology, [facility] [address] [place] [address] Mirella Hernandez MD [address] [place], [place] [id number] 12/14/2024 10:30 AM EDT Office Visit Family [facility], [place] [address] [place] [address] Renee Meeks, [address] [place] [address] 01/19/2025 1:00 PM EDT Nurse Only Ancillary Department, [place] [address] [place] [address] [place], Nurse [facility] [address] [place] [address] Pending Results Name Type Priority Associated Diagnoses Date /Time URINALYSIS, REFLEX TO CULTURE (NOT FOR NEUTROPENIC PATIENTS) Lab Routine Urine frequency 06/01/2024 1:56 PM EDT Scheduled Orders Name Type Priority Associated Diagnoses Orde r Schedule URINALYSIS, REFLEX TO CULTURE (NOT FOR NEUTROPENIC PATIENTS) Lab Routine Urine frequency Expected: 06/01/2024, Expires: 06/01/2025 EKG EKG Routine HOFFMAN (dyspnea on exertion) Expected: 06/01/2024 (Approximate), Expires: 07/02/2025 Scheduled Referrals Name Type Priority Associated Diagnoses Order Schedule ORTHOPAEDICS REFERRAL OP Referral Within 10 days (routine) Thumb pain, left Ordered: 06/01/2024 Health Maintenance Due Date Last [...] this encounter Medical Devices Implanted Type Area Bow Tacker Device Identifier Shelf Expiration Date Model / Serial / Lot Lens Intraoc 23.5 - [id number] - [id number] Implanted:Qty: 1 on 11/05/2019 by Kurtis Mcintosh MD at OR [facility] Right: Eye [employer] 05/25/2024 [id number] / [id number] / [id number] Lens Intraoc 23.0 - [id number] - [id number] Implanted:Qty: 1 on 11/16/2019 by Kurtis Mcintosh MD at OR [facility] Left: Eye [employer]CH [employer]OMB 01/24/2024 [id number] / [id number] / [id number] documented as of this encounter Visit Diagnoses Diagnosis HTN, goal below 140/90- Primary Unspecified essential hypertension Episode of recurrent major depressive disorder, unspecified depression episode severity (HCC) Hypertensive heart disease with chronic diastolic congestive heart failure (HCC) Chronic diastolic congestive heart failure (HCC) Chronic diastolic heart failure Dyslipidemia, goal LDL below 70 Other and unspecified hyperlipidemia Coronary artery disease involving [place] coronary artery of [place] heart without angina 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
--- OUTSIDE RECORDS SUMMARY | 2024-08-07 07:42 | External Medical Summary ---
Author Name Unknown Address Unknown Organization K01:[facility] [place] [address] [place] [address] [place] [address] Laboratory Report Ordering Provider Test Date Status MEEK REID 06/01/2024 11:54:53 Final Observation Date Value Abnormality Reference (Units ) Status TSH 06/01/2024 11:54:53 3.56 0.27-4.20 (uIU/mL) Final Performing Location [facility] [place] [address] [place] [address]
--- OUTSIDE RECORDS SUMMARY | 2024-08-07 07:42 | External Medical Summary | Summary of Care ---
Author Name Unknown Organization [facility] Address [address] [place] [address] Phone [phone] Care Team Providers Care Bullet Swaging Machine Operator Name Role Phone RajinderRenee carter Treva SAAB Primary Care Provider [phone] Encounter Details Date Type Department Care Team (Late st Contact Info) Description 05/22/2024 Orders Only PATIENT PORTAL DO NOT DELETE THIS DEPT USED BY [place] [id number] Allergies No known active allergiesdocumented as of this encounter (statuses as of 05/22/2024) Medications Medication Sig Dispensed Refills Start Date [...] 05/15/2024 Hydrocortisone (Perianal) 2.5 % External Cream (Anusol-HC)Indicati [...] OR OTHER MEDICATIONS 90 Tablet 2 09/02/2023 5 Active Metoprolol Succinate ER 25 MG Oral [...] MOUTH EVERY DAY 100 Tablet 2 11/23/2023 Active Additional Information Patient not taking.Reported on 05/15/2024 Escitalopram Oxalate 10 MG Oral Tablet (Lexapro)Indication [...] before bedtime. 270 Tablet 3 05/15/2024 Active documented as of this encounter (statuses as of 05/22/2024) Active Problems Problem Noted Date Diagnosed Date Hypertensive heart disease w ith chronic diastolic congestive heart failure 11/04/2023 Hypothyroidism due to medication 05/13/2023 Chronic diastolic congestive heart failure 11/13 PVC (premature ventricular contraction) 11/14/19 23 Major depressive disorder, recurrent, unspecifie d 07/09/2019 Carotid stenosis, non-symptomatic, bilateral 12/2017 Coronary artery disease invo lving [place] coronary artery of [place] heart without angina pectoris 07/11/2016 Dyslipidemia, goal LDL below 70 07/11/2016 Gastroesophageal reflux disease without esophagi tis HTN, goal below 140/90 documented as of this encounter (statuses as of 05/22/2024) Resolved Problems Problem Noted Date Diagnosed Date [...] as of this encounter (statuses as of 05/22/2024) Immunizations Name Administration Dates Next Due COVID-19 [...] Description 06/01/2024 10:30 AM EDT Office Visit [facility] [address] [place] [address] Renee Meeks DO [address] [place] [address] 06/22/2024 1:00 PM EDT Imaging Vascular Lab, [facility] 2nd [facility], [place] [address] [facility] [place] [address] 06/25/2024 3:00 PM EDT Telemedicine Vascular Surg [facility] [address] [place] [address] Tyler Rose CRNP [address] [facility] [place] [address] 09/07/2024 4:00 PM EST Office Visit Nephrology, [facility] [address] [facility] [place] [address] Mirella Hernandez MD [address] [place] [address] 01/19/2025 1:00 PM EDT Nurse Only Ancillary Department, [place] [address] [place] [address] [place], Nurse [facility] [address] [place] [address] Health Maintenance Due Date Last Done Comments [...] this encounter Medical Devices Implanted Type Area Material Reclaimer Device Identifier Shelf Expiration Date Model / Serial / Lot Lens Intraoc 23.5 - [id number] - [id number] Implanted:Qty: 1 on 11/05/2019 by Kurtis Mcintosh MD at OR [facility] Right: Eye [employer] 05/25/2024 [id number] / [id number] / [id number] Lens Intraoc 23.0 - [id number] - [id number] Implanted:Qty: 1 on 11/16/2019 by Kurtis Mcintosh MD at OR [facility] Left: Eye [employer]OM[employer] 01/24/2024 [id number] / [id number] / [id number] documented as of this encounter Care Teams Bullet Swaging Machine Operator Relationship Specialty Start Date End Date Renee Meeks DO [address] [place] [address] PCP - General Family Medicine 06/07/16 documented as of this encounter
--- OUTSIDE RECORDS SUMMARY | 2024-08-07 07:43 | External Medical Summary | Summary of Care ---
Author Name Unknown Organization [facility] Address [address] [place] [address] Phone [phone] Care Team Providers Care Traveling Storekeeper Name Role Phone Renee Meeks DO Primary Care Provider [phone] Reason for Visit * Reason Onset Date Comments Advice 04/07/2024 Encounter Details Date Type Department Care Team (Late st Contact Info) Description 04/07/2024 Telephone [facility] [address] [place] [address] Renee Meeks DO [address] [place] [address] Advice Allergies No known active [...] bilateral 12/2017 Coronary artery disease invo lving [place] coronary artery of [place] heart without angina pectoris 07/11/2016 Dyslipidemia, goal [...] encounter Miscellaneous Notes * Telephone Encounter - Renee Meeks DO [...] 05/15/2024 3:20 PM EDT Office Visit Nephrology, [address] [place] [address] Mirella Hernandez MD [address] [facility] [place] [address] 06/01/2024 10:30 AM EDT Office Visit Family [facility], [place] [address] [place] [phone] Renee Meeks DO [address] [place] [address] 06/22/2024 1:00 PM EDT Imaging Vascular Lab, [facility] 2nd Floor, [place] [address] [place] [address] 06/25/2024 3:00 PM EDT Telemedicine Vascular Surg [facility] [address] [place] [address] Tyler Rose CRNP [address] [place] [address] 01/19/2025 1:00 PM EDT Nurse Only Ancillary Department, [place] [address] [place] [address] [place], Nurse [facility] [address] [place] [address] Health Maintenance Due Date Last Done Comments COVID-19 Vaccine (2022- season) 2023 07/05/2023, 03/16/2022, 08/04/2021, Additional history [...] this encounter Medical Devices Implanted Type Area Equipment Maintenance Engineer Device Identifier Shelf Expiration Date Model / Serial / Lot Lens Intraoc 23.5 - [id number] - [id number] Implanted:Qty: 1 on 11/05/2019 by Kurtis Mcintosh MD at OR [facility] Right: Eye [employer]OM[employer] 05/25/2024 [id number] / [id number] / [id number] Lens Intraoc 23.0 - [id number] - [id number] Implanted:Qty: 1 on 11/16/2019 by Kurtis Mcintosh MD at OR [facility] Left: Eye BA[employer]CH [employer] LOMB 01/24/2024 [id number] / [id number] / [id number] documented as of this encounter Care Teams Traveling Storekeeper Relationship Specialty Start Date End Date Renee Meeks DO [address] [facility] [place] [address] PCP - General Family Medicine 06/07/16 documented as of this encounter
--- OUTSIDE RECORDS SUMMARY | 2024-08-07 07:43 | External Medical Summary | Summary of Care ---
Author Name Unknown Organization [facility] Address [address] [place] [address] Phone [phone] Care Team Providers Care Winemaker Name Role Phone RajinderRenee carter Treva SAAB Primary Care Provider Encounter Details Date Type Department Care Team (Late st Contact Info) Description 03/16/2024 Orders Only Outcomes Research Department [address] [place] [address] Mulu Real CHRA [employer] Research Other*[id number] Allergies No known active allergiesdocumented as of this encounter (statuses as of 03/16/2024) Medications Medication Sig Dispensed Refills Start Date [...] MEDICATIONS 90 Tablet 2 09/02/2023 5 Active Benzonatate 100 MG Oral CapsuleIndications: Subacute [...] as of this encounter (statuses as of 03/16/2024) Active Problems Problem Noted Date Diagnosed Date Hypertensive heart disease w ith chronic diastolic congestive heart failure 11/04/2023 Hypothyroidism due to medication 05/13/2023 Chronic diastolic congestive heart failure 11/13 PVC (premature ventricular contraction) 11/14/19 23 Major depressive disorder, recurrent, unspecifie d 07/09/2019 Carotid stenosis, non-symptomatic, bilateral 12/2017 Coronary artery disease invo lving [place] coronary artery of [place] heart without angina pectoris 07/11/2016 Dyslipidemia, goal LDL below 70 07/11/2016 Gastroesophageal reflux disease without esophagi tis HTN, goal below 140/90 documented as of this encounter (statuses as of 03/16/2024) Resolved Problems Problem Noted Date Diagnosed Date [...] as of this encounter (statuses as of 03/16/2024) Immunizations Name Administration Dates Next Due COVID-19 [...] 05/15/2024 3:20 PM EDT Office Visit Nephrology, [address] [place] [address] [facility]lla Hernandez [facility] [address] [facility] [address] 06/01/2024 10:30 AM EDT Office Visit Family [facility], [place] [address] [facility] [phone] Renee Meeks DO [address] [facility] [address] 01/19/2025 1:00 PM EDT Nurse Only Ancillary Department, [place] [address] [facility] [place] [address] [place], Nurse Annual Wellness [address] [facility] [place] [address] Scheduled Orders Name Type Priority Associated Diagnoses Orde r Schedule MYCODE SUBSEQUENT ADULT Lab Routine [employer] Other*[id number] Every 6 Months for 2 Occurrences starting 03/16/2024 until 04/05/2025 Health Maintenance Due Date Last Done Comments COVID-19 Vaccine ( season) 2023 07/05/2023, 03/16/2022, 08/04/2021, Additional history exists Influenza Vaccine (FLU shot) (#1) 2024 07/05/2023, 07/05/2023, 05/14/2022, Additional history exists TSH 07/22/2024 07/22/2023, 07/27, 10/02/2021, Additional history exists GFR 09/06/2024 09/06/2023, 06/27, 05/13/2023, Additional history exists Depression Monitoring 01/12/2025 01/13/2024 Albumin/Creatinine Ratio 08/23/2025 [...] this encounter Medical Devices Implanted Type Area Business Coordinator Device Identifier Shelf Expiration Date Model / Serial / Lot Lens Intraoc 23.5 - [id number] - [id number] Implanted:Qty: 1 on 11/05/2019 by Kurtis Mcintosh MD at OR [facility] Right: Eye [employer] 05/25/2024 [id number] / [id number] / [id number] Lens Intraoc 23.0 - [id number] - [id number] Implanted:Qty: 1 on 11/16/2019 by Kurtis Mcintosh MD at OR [facility] Left: Eye [employer]CH [employer] LOMB 01/24/2024 [id number] / [id number] / [id number] documented as of this encounter Visit Diagnoses Diagnosis [employer] Other*[id number] documented in this encounter Additional Health Concerns Infection Onset Date Last Indicated Resolved Time COVID-19 (confirmed) 02/13/2022 02/13/2022 documented as of this encounter Care Teams Winemaker Relationship Specialty Start Date End Date Renee Meeks DO [address] [place] [facility] [place] [address] PCP - General Family Medicine 06/07/16 documented as of this encounter
[2024-08-07 08:28] LABS: Hematocrit (blood only) 26.7 % (37.0-47.0); Hemoglobin 8.1 g/dl (12.0-16.0); Mean Corpuscular Hemoglobin 22.3 pg (25.0-34.0); Mean Corpuscular Hgb Conc 30.3 g/dL (32.0-36.0); Mean Corpuscular Volume 73.4 fL (80.0-100.0); Mean Platelet Volume 9.4 fL (9.4-12.4); Platelet Count 294 K/uL (130-400); RDW Standard Deviation 47.1 fL (36.4-46.3); Red Blood Count 3.64 M/uL (4.20-5.40); White Blood Count 7.53 K/ul (4.8-10.8)
[2024-08-07 08:41] LABS: Calcium 8.9 mg/dl (8.6-10.3); Potassium 3.5 mmol/L (3.5-5.1)
[2024-08-07 08:46] LABS: BUN Creatinine Ratio 11.4 (10-20); Creatinine Clr Calc Pharmacy 24.3 ml/min
--- NOTE | 2024-08-07 09:27 | Anesthesiology Consultation ---
Date of Service August 07, 2024 Assessment & Plan (1) Encounter for pre-operative examination: Chart Review Chart Review: Acceptable Risk for Surgery and Patient NOT seen in Pre Admission Testing Consults Requested none History Surgery Operation Date: 08/07/24 16:30 Proposed Procedures p Colonoscopy EGD Dr. May - Curt May MD Height/Weight Height: 4 ft 9 in Weight: 61.5 kg Allergies Allergy/AdvReac Type Severity Reaction Status Date / Time No Known Allergies Allergy Verified 08/01/18 06:35 Medications Home Medications Medication Instructions Recorded Confirmed Last Taken cholecalciferol (vitamin D3) 50 2,000 unit PO QPM 04/16/18 08/05/24 Unknown mcg (2,000 unit) capsule (Vitamin D3) docusate sodium 100 mg tablet 100 mg PO BID Constipation 04/16/18 08/05/24 Unknown escitalopram oxalate 10 mg tablet 10 mg PO QAM 04/16/18 08/05/24 08/01/18 04:00 fluticasone propionate 50 1 spray intranasal DAILY PRN 04/16/18 08/05/24 Unknown mcg/actuation nasal Congestion spray,suspension (Flonase Allergy Relief) losartan 100 mg tablet 100 mg PO DAILY 07/23/18 08/05/24 07/31/18 23:00 vitamin E 670 mg (1,000 unit) 1,000 unit PO DAILY 07/23/18 08/05/24 Unknown capsule amlodipine 2.5 mg tablet 2.5 mg PO DAILY 08/05/24 08/05/24 Unknown aspirin 81 mg tablet,delayed 81 mg PO DAILY 08/05/24 08/05/24 Unknown release atorvastatin 40 mg tablet 40 mg PO QPM 08/05/24 08/05/24 Unknown coenzyme Q10 100 mg capsule (Co 100 mg PO QAM 08/05/24 08/05/24 Unknown Q-10) furosemide 20 mg tablet 20 mg PO DAILY 08/05/24 08/05/24 Unknown hydralazine 25 mg tablet 25 mg PO TID 08/05/24 08/05/24 Unknown levothyroxine 25 mcg tablet 25 mcg PO DAILYBB 08/05/24 08/05/24 Unknown metoprolol succinate 25 mg 25 mg PO DAILY 08/05/24 08/05/24 Unknown tablet,extended release 24 hr omeprazole 20 mg capsule,delayed 20 mg PO AMPM 08/05/24 08/05/24 Unknown release Active Medications Generic Name Dose Route Start Last Admin Trade Name Kamari PRN Reason Stop Dose Admin Amlodipine Besylate 2.5 mg 08/06/24 09:00 08/07/24 07:57 Amlodipine Besylate 5 Mg Tab PO 09/05/24 08:59 2.5 mg DAILY NARCISA Administration Atorvastatin Calcium 40 mg 08/05/24 21:10 08/06/24 20:42 Atorvastatin 40 Mg Tab PO 09/04/24 21:09 40 mg QPM NARCISA Administration Carvedilol 3.125 mg 08/06/24 05:05 08/07/24 07:58 Carvedilol 3.125 Mg Tab PO 09/05/24 05:04 3.125 mg BIDM NARCISA Administration Escitalopram Oxalate 10 mg 08/06/24 09:00 08/07/24 07:57 Escitalopram Oxalate 10 Mg Tab PO 09/05/24 08:59 10 mg QAM NARCISA Administration Furosemide 20 mg 08/06/24 09:00 08/07/24 07:58 Furosemide 20 Mg Tab PO 09/05/24 08:59 20 mg DAILY NARCISA Administration Hydralazine HCl 25 mg 08/05/24 22:25 08/07/24 07:58 Hydralazine Hcl 25 Mg Tab PO 09/04/24 22:24 25 mg TID NARCISA Administration Hydralazine HCl 5 mg 08/06/24 08:34 08/07/24 00:38 Hydralazine Hcl 20 Mg/Ml Vial IV 09/05/24 08:33 5 mg Q6H PRN Administration systolic bp > 160 Pantoprazole Sodium 40 mg/ 100 mls @ 20 mls/hr 08/05/24 22:30 08/07/24 04:28 Dextrose IV 09/04/24 22:29 8 mg/hr Q5H NARCISA 20 mls/hr Administration 8 MG/HR Levothyroxine Sodium 25 mcg 08/06/24 06:30 08/07/24 06:14 Levothyroxine Sodium 25 Mcg Tablet PO 09/05/24 06:29 25 mcg DAILYBB NARCISA Administration Losartan Potassium 100 mg 08/05/24 22:30 08/06/24 20:42 Losartan Potassium 50 Mg Tab PO 09/04/24 22:29 100 mg PM NARCISA Administration Past Medical History Medical History (Updated 12/13/24 @ 09:33 by Kwame Lobato MD) Hyponatremia CAD (coronary artery disease) CKD (chronic kidney disease) stage 4, GFR 15-29 ml/min Hypothyroidism Dark stools Anemia Fatigue GERD (gastroesophageal reflux disease) Depression Hypertension Irregular heart rate UNKNOWN TYPE PER PT, FREQUENT PVCS NOTED ON 2016 ECHO Anxiety Cervical radiculopathy SOB (shortness of breath) on exertion Symptomatic anemia: On admission, H/H 7.09/17 Received 1UPRBC in ED; 08/06: 8.7; continue to trend (3) Hypertension: Plan: Hypertensive in ER. Reports missed afternoon dose of hydralazine Received Hydralazine in ED Continue home hydralazine, metoprolol succinate, furosemide No edema on examination; restart amlodipine Last seen by nephrology on 05/15/2024 secondary to gradual worsening renal functions. 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 At that time her hydralazine was increased to 25 mg 3 times daily BNP 222 on admission; will obtain repeat ECHO Most recent ECHO 04/2023 EF 55-59%, mild MR/TR, LV wall motion normal and LV wall with mildly concentric. Added Hydralazine PRN with parameters (4) CKD (chronic kidney disease), stage III: Plan: Cr: 1.9 on 06/01/24, 1.4 on 09/06/23; on 08/06 Creatinine 1.55 History renal ultrasound on 12/19/2023: Atrophic right kidney without mention of hydronephrosis or mass Last seen by nephrology on 05/15/2024 secondary to gradual worsening renal functions. 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 At that time her hydralazine was increased to 25 mg 3 times daily Monitor renal functions in AM Nephrology consult placed; appreciate recommendations. Will restart Losarten and Lasix. Ok to continue Amlodipine, Coreg and Hydralazine Past Surgical History Surgical History History of tonsillectomy H/O hemicolectomy 2/2 bowel obstruction H/O hysterectomy with oophorectomy one ovary remains H/O tubal ligation H/O colonoscopy History of carpal tunnel release duplicate Social History Smoking Status: Never smoker Do You Dip or Chew Tobacco: No Hx Alcohol Use: Yes Alcohol type: hard liquor alcohol intake frequency: holidays/special occasions only Hx Substance Use: No substance use type: does not use Physical Exam Vital Signs Last Vital Signs Temp 36.7 C 08/07/24 07:53 Pulse 82 08/07/24 07:53 Resp 18 08/07/24 07:53 BP 168/61 H 08/07/24 07:53 Pulse Ox 97 08/07/24 07:53 O2 Del Method Room Air 08/07/24 07:53 O2 Flow Rate 0 08/05/24 21:28 Testing Laboratory Results 08/07/24 07:58 08/07/24 07:58 PT 10.7 Seconds (9.0-12.0) 08/05/24 15:54 INR 1.0 (0.9-1.1) 08/05/24 15:54 Urine Color Yellow 08/06/24 Unknown Urine Appearance Clear (Clear) 08/06/24 Unknown Urine pH 6.0 (4.5-7.5) 08/06/24 Unknown Ur Specific [place] 1.010 (1.000-1.030) 08/06/24 Unknown Urine Protein Negative (Negative) 08/06/24 Unknown Urine Glucose (UA) Negative (Negative) 08/06/24 Unknown Urine Ketones Negative (Negative) 08/06/24 Unknown Urine Nitrite Negative (Negative) 08/06/24 Unknown Ur Leukocyte Esterase Negative (Negative) 08/06/24 Unknown Blood Type O Positive 08/05/24 15:54 Antibody Screen NEGATIVE 08/05/24 15:54 Electrocardiogram Date: 08/05/24 DICTATED BY: Jeremy Clemente MD Test Reason : Blood Pressure : */* mmHG Vent. Rate : 71 BPM Atrial Rate : 71 BPM P-R Int : 166 ms QRS Dur : 84 ms QT Int : 420 ms P-R-T Axes : 53 3 36 degrees QTcB Int : 456 ms Normal sinus rhythm Diffuse Minor Nonspecific ST abnormality Abnormal ECG When compared with ECG of 12-May-2023 13:06, Premature ventricular complexes are no longer Present Confirmed by Jeremy Clemente ([id number]) on 08/06/2024 8:34:56 AM Echocardiogram Date: 08/06/24 Mild LVH. EF 55-60%. LV systolic function is normal. LA mildly dilated. RA mildly dilated. Grade 2 DD. PA pressures elevated at 49mmHg.
--- NOTE | 2024-08-07 09:29 | Nephrology Progress Note ---
Date of Service August 07, 2024 Assessment & Plan Admission and Anticipated Discharge Date Admission Date: August 05, 2024 Subjective Assessment & Plan (1) Hypertension: BP is high. Continue lasix 20 , Amlo 2.5, Coreg and Hydralazine. She can restart the losartan. Current Creat is better than her recent outpt creat. raise coreg dose if allowed by HR/Cardiac rhythm. She does not like( edema) from amlo and wants to stop it so will not raise the dose. BP is high. reassess after the GI procedure done. (2) CKD (chronic kidney disease) stage 4, GFR 15-29 ml/min: last outpt creat of 1.9 GFR of 27 does put her at CKD stage 4 but blood work prior to that was more in line with CKD 3B sec to HTN and Age. current creatinine is better than her baseline. Did restart the losartan yesterday. Also C/o urine frequency so did check UA --normal bland. Urine C/s pending but unlikely infection daily CBC and renal panel. Na this AM was 127 ( new) ?? could be related with GI bowel prep. repeat renal panel again after the GI procedure around 2 PM. S--no new issues. She had EGD and Colonoscopy today--no major findings noted. making lot of urine Physical examination elderly white female who is not in any respiratory distress she is awake alert oriented and was able to give her detailed account of her medical problem. mucous membrane is moist neck is supple no JVD chest bilateral clear to auscultation CVS S1 and S2 regular no murmur or gallop heard abdomen is soft nontender extremities shows trace edema skin does not show any rash Results & Data Vital Signs (Past 12 Hours) Vital Signs Temp Pulse Pulse Resp BP BP Pulse Ox 08/07/24 07:53 36.7 C 82 18 168/61 H 97 08/07/24 07:29 08/07/24 05:45 101 H 08/07/24 02:53 36.5 C 49 L 16 164/67 H 97 08/07/24 01:08 170/52 H 08/07/24 00:46 183/62 H 08/07/24 00:36 191/62 H 08/06/24 22:45 36.4 C L 80 16 210/75 H 97 08/06/24 22:08 85 O2 Del Method 08/07/24 07:53 Room Air 08/07/24 07:29 Room Air 08/07/24 05:45 08/07/24 02:53 Room Air 08/07/24 01:08 08/07/24 00:46 08/07/24 00:36 08/06/24 22:45 Room Air 08/06/24 22:08
--- NOTE | 2024-08-07 09:32 | History & Physical Bridge Note ---
Date of Service August 07, 2024 History & Physical Bridge Note I have examined the patient, reviewed the History & Physical and in the interval since the performance of the History & Physical I have noted the following changes of clinical significance: no changes noted. patient finished her prep and reports clear stools. no nausea, vomiting, abdominal pain, chest pain, or sob. - will plan for EGD and colonoscopy later today to further evaluate anemia. Supervising Physician Co-Signing Physician Notes I examined the patient and reviewed patient's chart , laboratory data and imaging studies. I agree with with assessment and plan of care as suggested by advanced practice provider
--- NOTE | 2024-08-07 10:44 | GI REPORT ---
[facility] Patient: ZOFIA GONZALEZ : 1940 Sex at : Female Age: 83 Years Procedure: Upper GI endoscopy Date: 08/07/2024 Attending Physician: Curt May MD Referring MD: Referred Self Indications: - Iron deficiency anemia Medications: - Monitored Anesthesia Care Complications: - No immediate complications. Estimated Blood Loss: - Estimated blood loss: None. Procedure: - The EGD scope was introduced through the mouth and advanced to the second part of the duodenum. - The upper GI endoscopy was accomplished with ease. - The patient tolerated the procedure well. Findings: - The Z-line was irregular and was found 34 cm from the incisors. - The examined esophagus was normal. There was no evidence of esophagitis or Mcbride's mucosa. - A few small sessile fundic gland polyps were found in the gastric fundus and in the gastric body. The appearance was suggestive of fundic gland polyps. - The exam of the stomach was otherwise normal. - There was no evidence of hiatal hernia, ulcer, gastritis, tumor. - The examined duodenum was normal. Biopsies for histology were taken with a cold forceps for evaluation of celiac disease. Impression: - Z-line irregular, 34 cm from the incisors. - Normal esophagus. - There was no evidence of esophagitis or Mcbride's mucosa. - A few fundic gland polyps. - The appearance was suggestive of fundic gland polyps. - There was no evidence of hiatal hernia, ulcer, gastritis, tumor. - Normal examined duodenum. Biopsied. Recommendation: - Await pathology results. - Return to GI office PRN. - Return to referring physician as previously scheduled. Procedure Code(s): - 96658, Esophagogastroduodenoscopy, flexible, transoral; with biopsy, single or multiple Diagnosis Code(s): - D50.9, Iron deficiency anemia, unspecified - K22.89, Other specified disease of esophagus - K31.7, Polyp of stomach and duodenum CPT(R) - 2023 copyright [employer]. All Rights Reserved. The CPT codes, CCI edits and ICD codes generated are intended as suggestions and were generated based on input data. These codes are preliminary and upon still operator review may be revised to meet current compliance and payer requirements. The provider is responsible for the final determination of appropriate codes, and modifiers. Curt May M.D., MD This document has been electronically signed. Note Initiated:08/07/2024 Note Completed:08/07/2024 10:43 AM \\[email or web address]\[email or web address]\Data\Provation\Results\[email or web address]\[id number]
--- NOTE | 2024-08-07 10:49 | GI REPORT ---
[facility] Patient: ZOFIA GONZALEZ : 1940 Sex at : Female Age: 83 Years Procedure: Colonoscopy Date: 08/07/2024 Attending Physician: Curt May MD Referring MD: Referred Self Indications: - Iron deficiency anemia Medications: - Monitored Anesthesia Care Complications: - No immediate complications. Estimated Blood Loss: - Estimated blood loss: None. Procedure: - The pediatric colonoscope was introduced through the anus and advanced to the terminal ileum. - The colonoscopy was performed with ease. - The patient tolerated the procedure well. - The quality of the bowel preparation was evaluated using the BBPS ([place] Bowel Preparation Scale) with scores of: Right Colon = 3, Transverse Colon = 3 and Left Colon = 3 (entire mucosa seen well with no residual staining, small fragments of stool or opaque liquid). The total BBPS score equals 9. Findings: - Skin tags were found on perianal exam. - There was evidence of a prior end-to-end ileo-colonic anastomosis in the distal ascending colon. This was patent and was characterized by healthy appearing mucosa. - A few small-mouthed and medium-mouthed diverticula were found in the left colon. - The terminal ileum appeared normal. Biopsies were taken with a cold forceps for histology. - No other significant abnormalities were identified in a careful examination of the remainder of the colon. - There was no evidence of polyps or tumor. Impression: - Perianal skin tags found on perianal exam. - Patent end-to-end ileo-colonic anastomosis, characterized by healthy appearing mucosa. - Diverticulosis in the left colon. - The examined portion of the ileum was normal. Biopsied. - There was no evidence of polyps or tumor. Recommendation: - Await pathology results. - Return to GI office PRN. - Return to primary care physician as previously scheduled. - No repeat colonoscopy due to the absence of advanced adenomas, the absence of colonic polyps and current age (66 years or older). Procedure Code(s): - 64376, Colonoscopy, flexible; with biopsy, single or multiple Diagnosis Code(s): - D50.9, Iron deficiency anemia, unspecified - Z98.0, Intestinal bypass and anastomosis status - K57.30, Diverticulosis of large intestine without perforation or abscess without bleeding - K64.4, Residual hemorrhoidal skin tags CPT(R) - 2023 copyright [employer]. All Rights Reserved. The CPT codes, CCI edits and ICD codes generated are intended as suggestions and were generated based on input data. These codes are preliminary and upon international organizer review may be revised to meet current compliance and payer requirements. The provider is responsible for the final determination of appropriate codes, and modifiers. Curt May M.D., MD This document has been electronically signed. Note Initiated:08/07/2024 Note Completed:08/07/2024 10:48 AM \\[email or web address]\[email or web address]\Data\Provation\Results\LIVE\[id number]
--- OUTSIDE RECORDS SUMMARY | 2024-08-07 11:44 | External Medical Summary | Summary of Care ---
Author Name Unknown Organization [facility] Address [address] [place] [address] Phone [phone] Care Team Providers Care Child Nutrition Assistant Name Role Phone Renee Meeks DO Primary Care Provider Reason for Visit * Reason Onset Date Comments Test Results 08/05/2024 Encounter Details Date Type Department Care Team (Late st Contact Info) Description 08/05/[address] [facility] [address] [facility] [place] [phone] Renee Meeks DO [address] [facility] [place] [id number] Test Results Allergies No known active allergiesdocumented [...] bilateral 12/2017 Coronary artery disease invo lving [place] coronary artery of [place] heart without angina pectoris 07/11/2016 Dyslipidemia, goal [...] encounter Miscellaneous Notes * Telephone Encounter - Christy Quintanilla LPN - 08/05/2024 2:03 PM EST Called and spoke to patient's daughter, advised her per Dr. Meeks to go to the ER, verbalized understanding. * Telephone Encounter - Olivia Miranda OSA - 08/05/2024 12:21 PM EST Patient daughter Renetta calling in reference to test results she viewed on [facility]. Renetta and patient have concerns due to very low iron levels and would like to know how to proceed or what they should be doing. Renetta requesting a call back from nurse. * Telephone Encounter - Brenden Ladd OSA - 08/05/2024 9:41 AM EST Who is Requesting Test Results: Patient Primary Care Provider : Renee Meeks, Tests Results Requested : labs Date of Test : 08/04 Location of Test: lab Ordering Provider: PCP Requesting PCP to call to go over results Patient has been made aware that the turnaround time for test results are typically as follows: Laboratory results = within 2-3 days ([facility]), 3-5 days (Non-[facility], ie. [facility]) Urine Cultures = within 2-3 days depending on growth within the culture Pathology results (biopsy results/PAP) = 1-2 weeks Radiology results = about 1 week Cologuard results = within 2 weeks from the shipment date COVID testing = about 24 hours documented in this encounter Plan of Treatment Upcoming Encounters Date Type Department Care Team (Late st Contact Info) Description 09/07/2024 4:00 PM EST Office Visit Nephrology, Sebastian [place] [address] [facility] [place], [place] [id number] Mirella Hernandez MD [address] [place] [address] 12/14/2024 10:30 AM EDT Office Visit Family Practice, Luisana Green [address] [place] [address] Renee Meeks DO [address] [place] [address] 01/19/2025 1:00 PM EDT Nurse Only Ancillary Department, Luisana Valenciaelsie Maynor [address] [place] [phone] Luisana, Nurse Annual Wellness [address] [facility] [place] [address] Health Maintenance Due Date Last Done Comments [...] this encounter Medical Devices Implanted Type Area Cable Driller Device Identifier Shelf Expiration Date Model / Serial / Lot Lens Intraoc 23.5 - [id number] - [id number] Implanted:Qty: 1 on 11/05/2019 by Kurtis Mcintosh MD at OR [facility] Right: Eye [employer] 05/25/2024 [id number] / [id number] / [id number] Lens Intraoc 23.0 - [id number] - [id number] Implanted:Qty: 1 on 11/16/2019 by Kurtis Mcintosh MD at OR [facility] Left: Eye [employer]OM[employer] 01/24/2024 [id number] / [id number] / [id number] documented as of this encounter Care Teams Child Nutrition Assistant Relationship Specialty Start Date End Date Renee Meeks DO [address] [place] [address] PCP - General Family Medicine 06/07/16 documented as of this encounter
--- OUTSIDE RECORDS SUMMARY | 2024-08-07 11:44 | External Medical Summary | Summary of Care ---
Author Name Unknown Organization [facility] Address [address] [place] [address] Phone [phone] Care Team Providers Care Third Hand Name Role Phone Renee Meeks DO Primary Care Provider [phone] Reason for Visit * Reason Onset Date Comments Advice 08/05/2024 Test Results 08/05/2024 Encounter Details Date Type Department Care Team (Late st Contact Info) Description 08/05/2024 Telephone Access Center, [place] [facility] [address] [facility] *DO NOT REMOVE THIS DEPARTMENT* [place] [id number] Services, Scheduling [address] [place] [address] Advice; Test Results Allergies No known active [...] bilateral 12/2017 Coronary artery disease invo lving [place] coronary artery of [place] heart without angina pectoris 07/11/2016 Dyslipidemia, goal [...] encounter Miscellaneous Notes * Telephone Encounter - Britt Bonilla LPN - 08/05/2024 1:11 PM EST Call to pts daughter. Confirmed that she is referring to labs ordered by pts PCP. Daughter concerned about CBC results that she reviewed on MyG. Daughter reports that pt has not been feeling well and has been extremely fatigued. In review, message previously sent to PCP office. Will also forward to Dr Hernandez although he is not in clinic today. Pts daughter voiced understanding. Daughter reports that if pt feels suddenly worse, she will take her to the ER for eval. * Telephone Encounter - Rohan Chen OSA - 08/05/2024 11:37 AM EST Patients daughter Renetta called in concerned about patients recent lab results. Would like nephrology to review and call back with advice.[phone] documented in this encounter Plan of Treatment Upcoming Encounters Date Type Department Care Team (Late st Contact Info) Description 09/07/2024 4:00 PM EST Office Visit Nephrology, [address] [place] [address] Mirella Hernandez MD [address] [place] [address] [place] [address] 12/14/2024 10:30 AM EDT Office Visit [facility], [address] [place] [phone] Renee Meeks DO [address] [place] [address] 01/19/2025 1:00 PM EDT Nurse Only Ancillary Department, Luisana Mcguire [address] [phone] Luisana, Nurse Annual Wellness [address] [facility] [place] [address] Health Maintenance Due Date Last Done Comments [...] this encounter Medical Devices Implanted Type Area Decorating Kiln Operator Device Identifier Shelf Expiration Date Model / Serial / Lot Lens Intraoc 23.5 - [id number] - [id number] Implanted:Qty: 1 on 11/05/2019 by Kurtis Mcintosh MD at OR [facility] Right: Eye [employer] 05/25/2024 [id number] / [id number] / [id number] Lens Intraoc 23.0 - [id number] - [id number] Implanted:Qty: 1 on 11/16/2019 by Kurtis Mcintosh MD at [facility] Left: Eye [employer] 01/24/2024 [id number] / [id number] / [id number] documented as of this encounter Care Teams Third Hand Relationship Specialty Start Date End Date Renee Meeks DO [address] [place] [address] PCP - General Family Medicine 06/07/16 documented as of this encounter
--- OUTSIDE RECORDS SUMMARY | 2024-08-07 11:44 | External Medical Summary ---
Author Name Unknown Address Unknown Organization K01:[facility] - [address] [place] [address] Laboratory Report Ordering Provider Test Date Status SHELL BRAUN 08/04/2024 11:50:09 Final Observation Date Value Abnormality Reference (Units ) Status Ferritin 08/04/2024 11:50:09 21 13-150 (ng /mL) Final Postmenopausal women have hi gher ferritin levels than pre-menopausal women. The above reference interval is based on pre-menopausal women. Performing Location LABORATORY [facility] - [address] [place] [address]
--- OUTSIDE RECORDS SUMMARY | 2024-08-07 11:44 | External Medical Summary | Summary of Care ---
Author Name Unknown Organization [facility] Address [address] [place] [address] Phone [phone] Care Team Providers Care Marketing Analytics Lead Name Role Phone Renee Meeks DO Primary Care Provider [phone] Reason for Visit * Reason Onset Date Comments Advice 08/05/2024 Test Results 08/05/2024 Encounter Details Date Type Department Care Team (Late st Contact Info) Description 08/05/2024 Telephone Access Center, [place] [address] [facility] *DO NOT REMOVE THIS DEPARTMENT* [place] [phone] Services, Scheduling [address] [place] [address] Advice; Test Results Allergies No known active [...] bilateral 12/2017 Coronary artery disease invo lving [place] coronary artery of [place] heart without angina pectoris 07/11/2016 Dyslipidemia, goal [...] nephrology to review and call back with [phone] documented in this encounter Plan of Treatment Upcoming Encounters Date Type Department Care Team (Late st Contact Info) Description 09/07/2024 4:00 PM EST Office Visit Nephrology, [facility] [address] [place] [address] Mirella Hernandez MD [address] [place] [address] 12/14/2024 10:30 AM EDT Office Visit Family Practice, [facility] [address] [facility] [place] [address] Renee Meeks DO [address] [facility] [place] [address] 01/19/2025 1:00 PM EDT Nurse Only Ancillary Department, [place] [facility] [address] [facility] [place] [address] [place], Nurse [facility] [address] [facility] [address] Health Maintenance Due Date Last Done Comments [...] this encounter Medical Devices Implanted Type Area Registered Nurse Maternal Child Device Identifier Shelf Expiration Date Model / Serial / Lot Lens Intraoc 23.5 - [id number] - [id number] Implanted:Qty: 1 on 11/05/2019 by Kurtis Mcintosh MD at OR [facility] Right: Eye [employer] 05/25/2024 [id number] / [id number] / [id number] Lens Intraoc 23.0 - [id number] - [id number] Implanted:Qty: 1 on 11/16/2019 by Kurtis Mcintosh MD at OR [facility] Left: Eye [employer] 01/24/2024 [id number] / [id number] / [id number] documented as of this encounter Care Teams Marketing Analytics Lead Relationship Specialty Start Date End Date Renee Meeks DO [address] [place] [address] PCP - General Family Medicine 06/07/16 documented as of this encounter
--- NOTE | 2024-08-07 12:03 | Anesthesiology Progress Note ---
Date of Service August 07, 2024 Anesthesia Post Procedure Vital Signs Vital Signs: Temp Pulse Pulse Resp BP BP Pulse Ox 08/07/24 11:11 87 18 155/64 H 94 08/07/24 10:56 90 18 168/75 H 96 08/07/24 10:41 90 16 144/60 H 94 08/07/24 09:57 36.9 C 77 16 187/71 H 98 08/07/24 07:53 36.7 C 82 18 168/61 H 97 08/07/24 07:29 08/07/24 05:45 101 H 08/07/24 02:53 36.5 C 49 L 16 164/67 H 97 08/07/24 01:08 170/52 H 08/07/24 00:46 183/62 H 08/07/24 00:36 191/62 H 08/06/24 22:45 36.4 C L 80 16 210/75 H 97 08/06/24 22:08 85 08/06/24 20:23 36.2 C L 72 16 202/76 H 202/52 H 96 08/06/24 19:34 08/06/24 16:06 68 08/06/24 15:09 36.8 C 71 18 163/52 H 98 O2 Del Method 08/07/24 11:11 Room Air 08/07/24 10:56 Room Air 08/07/24 10:41 Room Air 08/07/24 09:57 Room Air 08/07/24 07:53 Room Air 08/07/24 07:29 Room Air 08/07/24 05:45 08/07/24 02:53 Room Air 08/07/24 01:08 08/07/24 00:46 08/07/24 00:36 08/06/24 22:45 Room Air 08/06/24 22:08 08/06/24 20:23 Room Air 08/06/24 19:34 Room Air 08/06/24 16:06 08/06/24 15:09 Room Air Transfer of Care Handoff Completed per policy Notes Mental Status: alert / awake / arousable and participated in evaluation Patient Amnestic to Procedure: Yes Nausea / Vomiting: adequately controlled Pain: adequately controlled Airway Patency, RR, SpO2: stable & adequate BP & HR: stable & adequate Hydration State: stable & adequate Anesthetic Complications: no major complications apparent and Pt Satisfied with anesthetic care
--- NOTE | 2024-08-07 14:51 | Hospitalist Progress Note ---
Date of Service August 07, 2024 Assessment & Plan (1) Symptomatic anemia: (2) Dark stools: Plan: Per Previous hospitalist notes with addendum: Patient is 83-year-old female with PMH HTN, dyslipidemia, CKD III, CAD, carotid stenosis, depression, hypothyroidism presented to ER for progressive fatigue, SOB and newly found anemia on outpatient labs. Symptomatic anemia: On admission, H/H 7./ Received 1UPRBC in ED; 08/06: 8.7; continue to trend Continue protonix gtt FOBT pending B12 ~1350 GI saw patient; appreciate their reccs Plan for EGD/c-scope on 08/07 GoLytely prep ordered NPO after MN; clears until then if tolerated Last scope 2012 external hemorrhoids and anastomosis 08/07 Status post EGD and colonoscopy: Unrevealing Hemoglobin stable at around 8 Iron level pending No signs of active GI bleeding today Resume soft diet Continue Protonix drip Transition to IV push twice daily tomorrow Will need close GI follow-up for possible video capsule endoscopy (3) Hypertension: Plan: Hypertensive in ER. Reports missed afternoon dose of hydralazine Received Hydralazine in ED Continue home hydralazine, metoprolol succinate, furosemide No edema on examination; restart amlodipine Last seen by nephrology on 05/15/2024 secondary to gradual worsening renal functions. 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 At that time her hydralazine was increased to 25 mg 3 times daily BNP 222 on admission; will obtain repeat ECHO Most recent ECHO 04/2023 EF 55-59%, mild MR/TR, LV wall motion normal and LV wall with mildly concentric. Added Hydralazine PRN with parameters 08/07 Blood pressure seems to be improving Continue amlodipine, Lasix, losartan, hydralazine, carvedilol Nephrology service on board (4) CKD (chronic kidney disease), stage III: Plan: Cr: 1.9 on 06/01/24, 1.4 on 09/06/23; on 08/06 Creatinine 1.55 History renal ultrasound on 12/19/2023: Atrophic right kidney without mention of hydronephrosis or mass Last seen by nephrology on 05/15/2024 secondary to gradual worsening renal functions. 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 At that time her hydralazine was increased to 25 mg 3 times daily Monitor renal functions in AM Nephrology consult placed; appreciate recommendations. Will restart Losarten and Lasix. Ok to continue Amlodipine, Coreg and Hydralazine 08/07 Sodium level decreased to 127 Likely secondary to bowel prep Repeat sodium pending Creatinine improving from 1.6, currently 1.3 (5) GERD (gastroesophageal reflux disease): Plan: Hold home oral PPI and switched to IV PPI gtt (6) Hypothyroidism: Plan: Continue home levothyroxine (7) CAD (coronary artery disease): Plan: 2017 CTA shows ~60% right carotid stenosis, with severe circumferential calcification. Duplex has been unabletofully appreciate this degree of disease. Her carotid disease is asymptomatic. Takes atorvastatin and baby ASA 08/07 Aspirin on hold Plan DVT Prophylaxis SCDs Admission and Anticipated Discharge Date Admission Date: August 05, 2024 Subjective Follow-up for anemia, etc. Status post EGD and colonoscopy Seen resting in bed, comfortable, not in distress Feels tired, also hungry, requesting for food Denies abdominal pain, nausea vomiting, melena hematochezia Denies dizziness, chest pain, shortness of breath, palpitations No other new symptoms Review of Systems Review of Systems: all noted and negative except for above Physical Exam Physical Exam: General- oriented x 3, not in distress, speaks in sentences with no effort or accessory muscle use Eyes- anicteric Neck- no JVD Lungs- clear breath sounds bilaterally, no rales/wheezes Heart- normal rate, regular rhythm; no murmurs Abdomen- normal bowel sounds, nondistended, soft, nontender Extremities- no pretibial edema, no calf tenderness Neuro- alert, oriented x 3; no gross focal neurologic deficits Skin- warm & dry Results & Data Results & Data Vital Signs (Past 12 Hours) Vital Signs Temp Pulse Pulse Resp BP BP Pulse Ox 08/07/24 12:31 36.4 C L 79 18 154/66 H 95 08/07/24 11:11 87 18 155/64 H 94 08/07/24 10:56 90 18 168/75 H 96 08/07/24 10:41 90 16 144/60 H 94 08/07/24 09:57 36.9 C 77 16 187/71 H 98 08/07/24 07:53 36.7 C 82 18 168/61 H 97 08/07/24 07:29 08/07/24 05:45 101 H 08/07/24 02:53 36.5 C 49 L 16 164/67 H 97 O2 Del Method 08/07/24 12:31 Room Air 08/07/24 11:11 Room Air 08/07/24 10:56 Room Air 08/07/24 10:41 Room Air 08/07/24 09:57 Room Air 08/07/24 07:53 Room Air 08/07/24 07:29 Room Air 08/07/24 05:45 08/07/24 02:53 Room Air all noted and reviewed including below
[2024-08-07 15:31] LABS: BUN Creatinine Ratio 9.6 (10-20); Calcium 8.9 mg/dl (8.6-10.3); Creatinine Clr Calc Pharmacy 23.8 ml/min; Potassium 3.3 mmol/L (3.5-5.1)
[2024-08-07] MEDS: ONDANSETRON INJ 2 MG/ML 2 ML VIAL ONE (18:54)
[2024-08-07] MEDS: LIDOCAINE 2% 2 ML VIAL/AMP(20MG/ML) INFIL ONE (18:54)
[2024-08-07] MEDS: GLYCOPYRROLATE 0.2 MG/ML VIAL ONE (18:54)
[2024-08-07] MEDS: PROPOFOL IV EMULSION 10 MG/ML 20 ML VIAL IV ONE (18:54)
[2024-08-07] MEDS: hydrALAZINE HCL 20 MG/ML VIAL IV ONE (19:12)
[2024-08-07] MEDS: carvediloL 3.125 MG TAB PO ONE (19:13)
[2024-08-07 19:25] LABS: Appearance Urine Clear (Clear); Bacteria Urine Automated None Seen (None Seen); Bilirubin Urine Negative (Negative); Blood Urine Negative (Negative); Cast Urine Automated 0-2 /lpf (0-2); Color Urine Yellow; Epithelial Cell Urine Auto 0-2 /hpf (0-2); Glucose Urine UA Negative (Negative); Ketones Urine Negative (Negative); Leukocyte Esterase Urine 1+ (Negative); Nitrite Urine Negative (Negative); Protein Urine 1+ (Negative); RBC Urine Automated 0-2 /hpf (0-2); Specific Gravity Urine 1.008 (1.000-1.030); Urobilinogen Urine Negative (Negative); pH Urine 6.5 (4.5-7.5)
[2024-08-08 06:33] LABS: BUN Creatinine Ratio 9.4 (10-20); Calcium 9.2 mg/dl (8.6-10.3); Creatinine Clr Calc Pharmacy 17.7 ml/min; Potassium 3.8 mmol/L (3.5-5.1)
[2024-08-08] MEDS: carvediloL 6.25 MG TAB PO SCH (08:42)
[2024-08-08 08:47] LABS: Basophils # (auto) 0.03 K/uL (0.00-0.20); Basophils % (auto) 0.4 %; Eosinophils # (auto) 0.33 K/uL (0.00-0.50); Hematocrit (blood only) 28.5 % (37.0-47.0); Hemoglobin 8.7 g/dl (12.0-16.0); Immature Granulocytes # (auto) 0.07 K/uL (0.01-0.20); Immature Granulocytes % (auto) 0.8 %; Lymphocytes # (auto) 1.55 K/uL (1.20-3.40); Lymphocytes % (auto) 18.6 %; Mean Corpuscular Hemoglobin 22.1 pg (25.0-34.0); Mean Corpuscular Hgb Conc 30.5 g/dL (32.0-36.0); Mean Corpuscular Volume 72.3 fL (80.0-100.0); Mean Platelet Volume 9.5 fL (9.4-12.4); Monocytes # (auto) 0.96 K/uL (0.11-0.59); Monocytes % (auto) 11.5 %; Neutrophils # (auto) 5.39 K/uL (1.40-6.50); Neutrophils % (auto) 64.7 %; Platelet Count 466 K/uL (130-400); RDW Standard Deviation 45.5 fL (36.4-46.3); Red Blood Count 3.94 M/uL (4.20-5.40); White Blood Count 8.33 K/ul (4.8-10.8)
[2024-08-08] MEDS: SODIUM CHLORIDE 0.9% 1,000 ML IV SCH (16:34)
--- NOTE | 2024-08-08 16:45 | Hospitalist Progress Note ---
Date of Service August 08, 2024 Assessment & Plan (1) Symptomatic anemia: (2) Dark stools: Plan: Per Previous hospitalist notes with addendum: Patient is 83-year-old female with PMH HTN, dyslipidemia, CKD III, CAD, carotid stenosis, depression, hypothyroidism presented to ER for progressive fatigue, SOB and newly found anemia on outpatient labs. Symptomatic anemia: On admission, H/H 7.09/17 Received 1UPRBC in ED; 08/06: 8.7; continue to trend Continue protonix gtt FOBT pending B12 ~1350 GI saw patient; appreciate their reccs Plan for EGD/c-scope on 08/07 GoLytely prep ordered NPO after MN; clears until then if tolerated Last scope 2012 external hemorrhoids and anastomosis 08/07 Status post EGD and colonoscopy: Unrevealing Hemoglobin stable at around 8 Iron level pending No signs of active GI bleeding today Resume soft diet Continue Protonix drip Transition to IV push twice daily tomorrow Will need close GI follow-up for possible video capsule endoscopy 08/08 Hemoglobin actually increased to 8.7 Iron level 128 No signs of GI bleed at this point Continue to monitor hemoglobin Hold aspirin GI follow-up for possible video capsule endoscopy (3) Hypertension: Plan: Hypertensive in ER. Reports missed afternoon dose of hydralazine Received Hydralazine in ED Continue home hydralazine, metoprolol succinate, furosemide No edema on examination; restart amlodipine Last seen by nephrology on 05/15/2024 secondary to gradual worsening renal functions. 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 At that time her hydralazine was increased to 25 mg 3 times daily BNP 222 on admission; will obtain repeat ECHO Most recent ECHO 04/2023 EF 55-59%, mild MR/TR, LV wall motion normal and LV wall with mildly concentric. Added Hydralazine PRN with parameters 08/07 Blood pressure seems to be improving Continue amlodipine, Lasix, losartan, hydralazine, carvedilol Nephrology service on board 08/08 Carvedilol increased to 6.25 mg p.o. twice daily Blood pressure seems to be improving Continue the rest of BP meds Monitor closely (4) CKD (chronic kidney disease), stage III: Plan: Cr: 1.9 on 10/7/24, 1.4 on 09/06/23; on 08/06 Creatinine 1.55 History renal ultrasound on 12/19/2023: Atrophic right kidney without mention of hydronephrosis or mass Last seen by nephrology on 05/15/2024 secondary to gradual worsening renal functions. 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 At that time her hydralazine was increased to 25 mg 3 times daily Monitor renal functions in AM Nephrology consult placed; appreciate recommendations. Will restart Losarten and Lasix. Ok to continue Amlodipine, Coreg and Hydralazine 08/07 Sodium level decreased to 127 Likely secondary to bowel prep Repeat sodium pending Creatinine improving from 1.6, currently 1.3 08/08 Sodium level at 128 Creatinine increased again to 1.8 Start 1 L of IV NSS Repeat BMP tomorrow (5) GERD (gastroesophageal reflux disease): Plan: Hold home oral PPI and switched to IV PPI gtt (6) Hypothyroidism: Plan: Continue home levothyroxine (7) CAD (coronary artery disease): Plan: 2017 CTA shows ~60% right carotid stenosis, with severe circumferential calcification. Duplex has been unabletofully appreciate this degree of disease. Her carotid disease is asymptomatic. Takes atorvastatin and baby ASA 08/07 Aspirin on hold Plan DVT Prophylaxis SCDs Disposition PT ordered Lives at home Admission and Anticipated Discharge Date Admission Date: August 05, 2024 Subjective Seen resting in bed, comfortable, not in distress Good spirits States she feels better overall No bowel movement yet No signs of bleeding Denies chest pain, shortness of breath, palpitations, dizziness No Abdominal pain No other new symptoms Review of Systems Review of Systems: all noted and negative except for above Physical Exam Physical Exam: General- oriented x 3, not in distress, speaks in sentences with no effort or accessory muscle use Eyes- anicteric Neck- no JVD Lungs- clear breath sounds bilaterally, noCrackles or wheezes Heart- normal rate, regular rhythm; no murmurs Abdomen- normal bowel sounds, nondistended, soft, nontender Extremities- no pretibial edema, no calf tenderness Neuro- alert, oriented x 3; no gross focal neurologic deficits Skin- warm & dry Results & Data Results & Data Vital Signs (Past 12 Hours) Vital Signs Temp Pulse Pulse Resp BP Pulse Ox O2 Del Method 08/08/24 14:30 36.5 C 67 16 144/53 H 96 Room Air 08/08/24 13:55 69 143/46 H 08/08/24 13:08 70 08/08/24 11:30 36.3 C L 63 18 121/56 L 98 Room Air 08/08/24 08:35 Room Air 08/08/24 07:16 36.7 C 63 16 166/54 H 97 Room Air 08/08/24 05:12 72 all noted and reviewed including below
--- NOTE | 2024-08-08 19:03 | Nephrology Progress Note ---
Date of Service August 08, 2024 Assessment & Plan (1) Hypertension: Plan: BP is high. Continue lasix 20 , Amlo 2.5, Coreg and Hydralazine. She can restart the losartan. Current Creat is about same/Slightly better than her recent outpt creat. raise coreg dose if allowed by HR/Cardiac rhythm. Most recent blood pressure has now gone down to 155 x 62 which is acceptable for the current setting Of GI bleed. (2) CKD (chronic kidney disease) stage 4, GFR 15-29 ml/min: Plan: last outpt creat of 1.9 GFR of 27 does put her at CKD stage 4 but blood work prior to that was more in line with CKD 3B sec to HTN and Age. current creatinine is slightly better than her baseline. Given this she can restart the losartan Also C/o urine frequency so check urine C/s if not done already. daily CBC and renal panel. Admission and Anticipated Discharge Date Admission Date: August 05, 2024 Results & Data Vital Signs (Past 12 Hours) Vital Signs Temp Pulse Pulse Resp BP Pulse Ox O2 Del Method 08/08/24 14:30 36.5 C 67 16 144/53 H 96 Room Air 08/08/24 13:55 69 143/46 H 08/08/24 13:08 70 08/08/24 11:30 36.3 C L 63 18 121/56 L 98 Room Air 08/08/24 08:35 Room Air 08/08/24 07:16 36.7 C 63 16 166/54 H 97 Room Air
[2024-08-09 06:01] LABS: Basophils # (auto) 0.04 K/uL (0.00-0.20); Basophils % (auto) 0.5 %; Eosinophils # (auto) 0.36 K/uL (0.00-0.50); Eosinophils % (auto) 4.4 %; Hematocrit (blood only) 27.1 % (37.0-47.0); Hemoglobin 8.4 g/dl (12.0-16.0); Immature Granulocytes # (auto) 0.06 K/uL (0.01-0.20); Immature Granulocytes % (auto) 0.7 %; Lymphocytes # (auto) 1.62 K/uL (1.20-3.40); Mean Corpuscular Hemoglobin 22.5 pg (25.0-34.0); Mean Corpuscular Volume 72.7 fL (80.0-100.0); Mean Platelet Volume 9.2 fL (9.4-12.4); Monocytes # (auto) 1.02 K/uL (0.11-0.59); Monocytes % (auto) 12.6 %; Neutrophils % (auto) 61.8 %; Platelet Count 436 K/uL (130-400); RDW Coefficient of Variation 18.9 % (11.5-14.5); RDW Standard Deviation 46.3 fL (36.4-46.3); Red Blood Count 3.73 M/uL (4.20-5.40)
[2024-08-09 06:25] LABS: BUN Creatinine Ratio 14.2 (10-20); Creatinine Clr Calc Pharmacy 18.3 ml/min; Potassium 3.8 mmol/L (3.5-5.1)
[2024-08-09 11:36] VITALS: RESP 20; TEMP 98.2; O2SAT 97
--- NOTE | 2024-08-09 12:57 | Nephrology Progress Note ---
Date of Service August 09, 2024 Assessment & Plan (1) CKD (chronic kidney disease) stage 4, GFR 15-29 ml/min: Plan: CKD 4 versus CKD3. her last outpt creat of 1.9 GFR of 27 in May 2024; but one year ago was more 1.1 range for CKD 3A -- not many lab data points but first CKD 4 # is May; CKD attributed to HTN, age. would call her current baseline 1.9 for now. will need close in f/u w/ nephro to evaluate cause of rapidly progressive CKD which is so far unexplained. she also did receive IV contrast 08/05 which complicates assessment of kidney function. CT w/ IV con this admission shows atrophic R kidney enhancing differently than L >> concerning for renal artery stenosis per radiology (images personally reviewed; agree w/ report); creatinine 1.8; hgb 8.4 today >> both are stable; sodium slightly improved at 132; no OP h/o hyponatremia and suspect mild hypovolemic hyponatremia w/ NPO status, IV contrast w/ continued diuretics/ARB OK for hospital d/c today I messaged Dr Hernandez to pay attn /review rapid decline in renal function > ? d/t Covid late 2022 or renal artery stenosis or other NEPHRO D/C RECS -resume customary OP lasix, losartan, hydralazine, amlodipine -continue coreg current dose -less than 2 gm daily sodium diet at d/c -for now limit fluids to less than 1.8 L daily -bmp at hospital f/u appt w/ PCP -bring home BP cuff to NEPHRO hospital d/c appt -bring log of at least 12 home bp with heart rate done over 3-7 days to neph appt -hospital d/c appt 40 minutes w/ Dr David Bishop in 2-3 wks > neph nurse to order for that appt bmp, uacm, ACR, prot/creat; will also have neph nurse order renovascular duplex (if negative may need to consider other testing); KEEP late Jeet appt w/ David as well for now in case needed -defer to Dr Hernandez appt for consideration of whether she might benefit from epo or IV iron w/ CKD anemia clinic Care coordinated w/ Dr Rivera by phone re d/c meds, labs, f/u appts and d/c dispo; we are in agreement (2) Hypertension: Plan: her blood pressure is labile and in hospital generally uncontrolled. last 36 hrs range is 115-184 systolic, mostly in 140-160s. target would be under 160 generally and even better under 150 in house. -Continue lasix 20 , Amlo 2.5, Coreg and Hydralazine; cont losartan (back on this since 08/05) cannot raise coreg d/t bradycardia She does not like edema from amlo and wants to stop it so will not raise the dose. >steps as above; ? situational component in hospital Admission and Anticipated Discharge Date Admission Date: August 05, 2024 Subjective no interval events. tolerating po, no presyncopal sx, no obvious bleeding. no N or edema. for possible d/c today Review of Systems 2 Review of Systems: All systems reviewed & are unremarkable except as noted in Subjective Physical Exam 2 Constitutional: well developed and well nourished Eyes: EOM intact bilaterally ENMT: Mouth: oral mucous membranes not dry Respiratory: normal respiratory effort Auscultation: + diminished lung sounds Cardiovascular: Rate/Rhythm: regular rhythm and + bradycardic Heart Sounds: + murmur Extremities: no edema Gastrointestinal (Abdomen): Inspection/Auscultation: normal bowel sounds P ercussion/Palpation: abdomen soft; abdomen nontender Musculoskeletal: Extremities: strength 5/5 throughout Skin: no rashes, warm and dry Neurologic: shannon, fluent speech, no tremor, no asst needed for exam maneuvers Psychiatric: Orientation: alert and oriented x 3 Speech: normal rate/rhythm/volume of speech Insight: good insight Results & Data Vital Signs (Past 12 Hours) Vital Signs Temp Pulse Pulse Resp BP BP Pulse Ox 08/09/24 11:35 36.8 C 58 L 20 115/54 L 97 08/09/24 07:24 72 08/09/24 02:54 36.7 C 70 16 152/66 H 94 O2 Del Method 08/09/24 11:35 Room Air 08/09/24 07:24 08/09/24 02:54 Room Air Laboratory Results 08/09/24 05:25 08/09/24 05:25
[2024-08-09 14:05] VITALS: BP 152/66
[2024-08-09 15:00] VITALS: PULSE 76
--- NOTE | 2024-08-09 16:39 | Discharge Summary ---
Discharge Summary Date of Service August 09, 2024 Principal Dx & Hospital Course #1 = Principal Diagnosis (1) Symptomatic anemia: (2) Dark stools: Per Previous hospitalist notes with addendum: Patient is 83-year-old female with PMH HTN, dyslipidemia, CKD III, CAD, carotid stenosis, depression, hypothyroidism presented to ER for progressive fatigue, SOB and newly found anemia on outpatient labs. Symptomatic anemia: On admission, H/H 7./ Received 1UPRBC in ED; 08/06: 8.7; continue to trend 08/07 Status post EGD and colonoscopy: Unrevealing Hemoglobin stable at around 8 Iron level 128 No signs of active GI bleeding while admitted Resumed soft diet Hold aspirin for now until follow-up with primary care physician this week Will need close GI follow-up for possible video capsule endoscopy (3) Hypertension: Hypertensive in the systolic 200s during admission Continue home hydralazine, metoprolol succinate, furosemide Last seen by nephrology on 05/15/2024 secondary to gradual worsening renal functions. 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 At that time her hydralazine was increased to 25 mg 3 times daily BNP 222 on admission Echocardiogram: Mild concentric LVH Left ventricular systolic function is normal Left ventricular ejection fraction is 55 to 60% Left ventricular wall motion is normal Left atrium is mildly dilated Right atrium is mildly dilated There is mild mitral regurgitation Diastolic dysfunction, grade 2 Compared to outpatient study performed on May 16, 2023 there is no significant interval change Nephrology service consulted CT abdomen/pelvis: Possible right renal artery stenosis Metoprolol changed to carvedilol 6.25 mg p.o. twice daily Usual Lasix, losartan, amlodipine, hydralazine continued Blood pressure improving Continue to monitor closely as an outpatient (4) CKD (chronic kidney disease), stage III: Cr: 1.9 on 06/01/24, 1.4 on 09/06/23; on 08/06 Creatinine 1.55 History renal ultrasound on 12/19/2023: Atrophic right kidney without mention of hydronephrosis or mass Last seen by nephrology on 05/15/2024 secondary to gradual worsening renal functions. 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 At that time her hydralazine was increased to 25 mg 3 times daily Monitor renal functions in AM Nephrology consult placed; appreciate recommendations. Will restart Losarten and Lasix. Ok to continue Amlodipine, Coreg and Hydralazine 08/07 Sodium level decreased to 127 Likely secondary to bowel prep Repeat sodium pending Creatinine improving from 1.6, currently 1.3 08/08 Sodium level at 128 Creatinine increased again to 1.8 Start 1 L of IV NSS Repeat BMP tomorrow 08/09 Sodium level improved to 132 Creatinine remaining stable around 1.7 Discussed with nephrology service Please repeat basic metabolic profile and follow-up with PCP this week Please refer to nephrology for an appointment in 2 to 3 weeks (5) Abnormal CT of the abdomen: Vasculature: Atherosclerotic calcification of the aorta and branches. No aneurysm. Atherosclerotic calcification of the aorta. 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 No hemorrhage. There is moderate calcific plaque causing some level of stenosis at the origin of the right renal artery, celiac trunk and SMA. Incidental retroaortic left renal vein. Lymph nodes: No pathologically enlarged lymph nodes. IMPRESSION: 1. There may be pyloric thickening. This is suboptimally assessed due to collapse of the stomach. No focal inflammatory process, visible ulceration or perforation. 2. Atrophic right kidney which does enhance but less than the left kidney. Consider renal artery stenosis. Please refer to full report in the Ordered Studies section Further work up, management, and ff up as outpatient (6) GERD (gastroesophageal reflux disease): Continue usual omeprazole (7) Hypothyroidism: Continue home levothyroxine (8) CAD (coronary artery disease): 2018 CTA shows ~60% right carotid stenosis, with severe circumferential calcification. Duplex has been unabletofully appreciate this degree of disease. Her carotid disease is asymptomatic. Takes atorvastatin and baby ASA 08/09 Hold aspirin until further advised by PCP on follow-up this coming week Notes For Next Care Provider Medication Changes From Visit Change metoprolol to carvedilol for blood pressure control. Hold aspirin for now until further advised by your primary care physician. Admission HPI Per Admitting Provider Patient is 83-year-old female with PMH HTN, dyslipidemia, CKD III, CAD, carotid stenosis, depression, hypothyroidism presented to ER for progressive fatigue and newly found anemia on outpatient labs. Progressive generalized weakness and fatigue over past couple of months. Has had urge to eat ice for past 2 weeks. Feeling SOB with exertion for past month. Having cramps to legs and hands. States decreased taste to food and decreased appetite. Reports chronic heartburn. Having some constipation and used laxative at home with relief. Stools described as very dark. Denies any bright red blood from rectum. Reports history hemorrhoids and will have bulging but denies any recent bleeding hemorrhoids or hemorrhoidal pain. Takes aspirin 81mg daily. Reports had colonoscopy >10 years ago. Reports history partial bowel resection in but unaware of details. Has urinary frequency. Denies dysuria or hematuria. Reports bilateral leg swelling that is chronic and feels from her amlodipine. Denies fever/chills, diaphoresis, N/V, COURTNEY, syncope, vision changes, neck pain, CP, orthopnea, palpitations, cough, sore throat, rhinorrhea, abdominal pain, paresthesias, extremity edema, rashes. Admission Exam Per Admitting Provider Vitals signs as noted above General Appearance:Moderately built and nourished, no apparent distress Head: normocephalic, Atraumatic Eyes: normal inspection, EOMI, + pallor Neck: supple, Trachea midline Respiratory/Chest: Normal breath sounds, CTA, No accessory muscle use Cardiovascular: S1, S2, No murmur Abdomen/GI:Soft, Non tender, Bowel sounds present Extremities/Musculoskeletal:normal inspection, trace edema Neurologic/Psych:AAOX3, grossly no focal neurological deficits Skin: normal color, warm Discharge Exam General- oriented x 3, not in distress, speaks in sentences with no effort or accessory muscle use Eyes- anicteric Neck- no JVD Lungs- clear breath sounds bilaterally, no rales/wheezes Heart- normal rate, regular rhythm; no murmurs Abdomen- normal bowel sounds, nondistended, soft, nontender Extremities- no pretibial edema, no calf tenderness Neuro- alert, oriented x 3; no gross focal neurologic deficits Skin- warm & dry Updated Medication List Medication Instructions Recorded Confirmed Type cholecalciferol (vitamin D3) 50 2,000 unit PO QPM 04/16/18 08/05/24 History mcg (2,000 unit) capsule (Vitamin D3) docusate sodium 100 mg tablet 100 mg PO BID Constipation 04/16/18 08/05/24 History escitalopram oxalate 10 mg tablet 10 mg PO QAM 04/16/18 08/05/24 History fluticasone propionate 50 1 spray intranasal DAILY PRN 04/16/18 08/05/24 History mcg/actuation nasal Congestion spray,suspension (Flonase Allergy Relief) vitamin E 670 mg (1,000 unit) 1,000 unit PO DAILY 07/23/18 08/05/24 History capsule amlodipine 2.5 mg tablet 2.5 mg PO DAILY 08/05/24 08/05/24 History aspirin 81 mg tablet,delayed 81 mg PO DAILY 08/05/24 08/07/24 History release atorvastatin 40 mg tablet 40 mg PO QPM 08/05/24 08/05/24 History coenzyme Q10 100 mg capsule (Co 100 mg PO QAM 08/05/24 08/05/24 History Q-10) furosemide 20 mg tablet 20 mg PO DAILY 08/05/24 08/05/24 History hydralazine 25 mg tablet 25 mg PO TID 08/05/24 08/05/24 History levothyroxine 25 mcg tablet 25 mcg PO DAILYBB 08/05/24 08/05/24 History omeprazole 20 mg capsule,delayed 20 mg PO AMPM 08/05/24 08/07/24 History release carvedilol 6.25 mg tablet 6.25 mg PO BIDM 30 days #60 tabs 08/09/24 Rx losartan 100 mg tablet 100 mg PO DAILY #0 tabs 08/09/24 08/05/24 Rx Hospital Stay Data Consultations 08/05/24 19:03 ED Decision to Admit Stat 08/05/24 21:10 Consult Gastroenterology Routine 08/06/24 08:35 Consult Nephrology Routine Procedures Performed Operation Date: 08/07/24 16:30 Actual Procedures p EGD Biopsy Cytology(Not Applicable) - Curt May MD s Colonoscopy Biopsy Cytology - Curt May MD Diagnostic Imagining Performed 08/05/24 15:56 CT abd pelvis IV con only Stat EXAM: CT Abdomen and Pelvis With Intravenous Contrast INDICATION: Shortness of breath and leg cramps. Anemia. TECHNIQUE: Axial computed tomography images of the abdomen and pelvis with intravenous contrast. Sagittal and coronal reformatted images were created and reviewed. This CT exam was performed using one or more of the following dose reduction techniques: automated exposure control, adjustment of the mA and/or kV according to patient size, and/or use of iterative reconstruction technique. CONTRAST: 94ml of Optiray 320 was administered intravenously. COMPARISON: No relevant prior studies available. FINDINGS: Limitations: None. Lung bases: No abnormality noted. Pleural space: No visualized pleural effusion or pneumothorax. Heart: Cardiomegaly. No basilar pericardial effusion. Mediastinum: No abnormality noted. ABDOMEN: Liver: No abnormality noted. Gallbladder and bile ducts: No calcified stones or surrounding fluid. Pancreas: Homogeneous enhancement. No mass, inflammation or ductal dilation. Spleen: No significant abnormality noted. Adrenals: No significant abnormality noted. Kidneys and ureters: The right kidney is small and the nephrogram delayed relative to the left. No hydronephrosis. No stones identified. No perinephric fluid or inflammation. No urinary gas. Stomach and bowel: Suboptimally assessed collapsed stomach. Mild pyloric thickening difficult to exclude. No inflammatory process. Colonic diverticulosis without diverticulitis. No obstruction. PELVIS: Appendix: No findings to suggest acute appendicitis. Bladder: Incompletely distended urinary bladder. No gas or stone. Reproductive: Hysterectomy. ABDOMEN and PELVIS: Intraperitoneal space: No free air. No significant fluid collection. Bones/joints: Lumbosacral degenerative disc disease. No acute osseous abnormality. Soft tissues: No significant abnormality noted. Vasculature: Atherosclerotic calcification of the aorta and branches. No aneurysm. Atherosclerotic calcification of the aorta. 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 No hemorrhage. There is moderate calcific plaque causing some level of stenosis at the origin of the right renal artery, celiac trunk and SMA. Incidental retroaortic left renal vein. Lymph nodes: No pathologically enlarged lymph nodes. IMPRESSION: 1. There may be pyloric thickening. This is suboptimally assessed due to collapse of the stomach. No focal inflammatory process, visible ulceration or perforation. 2. Atrophic right kidney which does enhance but less than the left kidney. Consider renal artery stenosis. ACT 112: Negative or not required by law. Electronically signed by Gwen Kam 08-05-2024 6:34 PM Pending Results Patient Have Any Pending Studies at Discharge: No Discharge Instructions Given to Patient (Per Discharging Provider) PLEASE REFER TO YOUR NEW MEDICATION LIST AND FOLLOW INSTRUCTIONS CAREFULLY. YOUR NEW MEDICATIONS INCLUDE: Change metoprolol to carvedilol for blood pressure control. Hold aspirin for now until further advised by your primary care physician. PLEASE CALL YOUR PRIMARY CARE PHYSICIAN OR RETURN TO THE ER IF WITH WORSENING OF SYMPTOMS, INCLUDING Bloody or black stools, abdominal pain, weakness, chest pain, shortness of breath, nausea or vomiting, etc. FOLLOW UP WITH PRIMARY CARE PHYSICIAN IN 1 WEEK. THE CLINIC WILL BE CALLING YOU SOON FOR THE APPOINTMENT. Total Time Total Time Spent Total Time Spent (In Minutes): 55 minutes
--- NOTE | 2024-08-12 15:09 | Coding Query ---
To promote full compliance with coding requirements relating to patient care, provider participation is requested in all cases of substation electrician supervisor uncertainty. Please assist us with the question(s) below: HP:Patient also states having very dark tarry stools intermittently. She takes an aspirin but denies any NSAIDs use. She also reports having hemorrhoid in the past. Melena Acute blood loss anemia Symptomatic anemia GI CONS-CT showing possible pyloric thickening. she reports dark stools, but it does not sound like true melena. SUBSEQ IM PN-symptomatic anemia with dark stools Coding Question(s): The diagnosis(es) below was documented in the (substation electrician supervisor fill out source document ie H&P, progress notes, etc.) then subsequently fell off all further documentation. Please indicate if it is still a possible diagnosis or ruled out. Physician's Response(s): MELENA (x ) Diagnosed and POA ( ) Diagnosed and not POA ( ) Ruled out ( ) Other (please specify) Jill Heredia, PHILLIP, CCS) ARIE
--- NOTE | 2024-09-10 08:12 | Coding Query ---
To promote full compliance with coding requirements relating to patient care, provider participation is requested in all cases of behavioral health tech uncertainty. Please assist us with the question(s) below: Coding Question(s): The diagnosis below was documented in the 08/07/24 Colonoscopy Impression, then subsequently fell off all further documentation. Please indicate if it is still a possible diagnosis or ruled out. Physician's Response(s): DIVERTICULOSIS IN THE LEFT COLON ( ) Diagnosed and POA ( ) Diagnosed and not POA ( ) Ruled out ( x) Other (please specify) DIagnosed via Colonoscopy performed 08/07, not found on CT scan of the abdomen/pelvis performed 08/05/24. Likely present on admission MTDD
== END 2024-08-09 15:15 | disposition home or self-care (01) | DRG 811 ==
LOC: ED 15:00 → SUATTDRO 19:41 → 2N 19:41